=== PATIENT | male | born 1950 | race Caucasian/White ===

== ENCOUNTER 2020-09-02 15:06 | Emergency (ER) | payer MEDICARE, SELFPAY ==
[2020-09-02 15:07] VITALS: BP 158/84; PULSE 80; RESP 18; TEMP 36.9; O2SAT 95; BMI 29.7
[2020-09-02 15:10] VITALS: BMI 29.7
--- NOTE | 2020-09-02 15:25 | EKG12_ITS ---
Test Reason : NEUROS/SX Blood Pressure : / mmHG Vent. Rate : 076 BPM Atrial Rate : 076 BPM P-R Int : 138 ms QRS Dur : 098 ms QT Int : 378 ms P-R-T Axes : 016 -24 -21 degrees QTc Int : 425 ms Normal sinus rhythm Inferior infarct , age undetermined Abnormal ECG Confirmed by JIM SLAUGHTER, ZACH ([id number]), desk editor DIAZ CALVERT ([id number]) on 09/06/2020 7:46:33 AM Referred By: COLLETTE Confirmed By:ZACH FERNANDEZ MD
--- NOTE | 2020-09-02 15:25 | CT_ITS ---
STUDY: CT BRAIN WITHOUT CONTRAST REASON FOR EXAM: Male, 70 years old. Left-sided facial droop for 2 days RADIATION DOSAGE (If Supplied By Facility): CTDIvol = ( 44.99 ) mGy, DLP = ( 846.73 ) mGycm TECHNIQUE: Transaxial CT imaging of the brain was performed without administration of intravenous contrast material. Individualized dose optimization techniques were used for this CT. COMPARISON: No relevant priors. FINDINGS: Normal soft tissue structures. Normal calvarium. Normal size ventricles and extra-axial spaces for the patient''s age. Normal white matter tracts of the cerebral hemispheres. Normal basal ganglia and thalami. Normal brainstem. Normal cerebellum. There is no intracranial hemorrhage. There are no findings of an acute ischemic infarction. Normal visualized paranasal sinuses. CT/Brain/Head without Contrast IMPRESSION: No acute intracranial hemorrhage or mass effect. Electronically Signed: José Miguel Quezada MD ([place]) at 16:11 EDT , Service support ,
--- NOTE | 2020-09-02 15:28 | ED.VIS.GEN ---
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 He has diabetes high cholesterol he has been unable to see his physician to get his medications refilled so is been off his meds for a few months, he is eating and drinking well executing all of his daily activities with no difficulty, he has no history of stroke ME PE DVT kidney liver or any other health issues except as above Past Medical History - Allergies and Home Meds Allergies/Adverse Reactions: Allergies No Known Allergies Allergy (Verified 09/02/20 15:09) Primary Care Physician: Arcadio Maldonado MD [STAFF PHYSICIAN] - Daniel Lara MD [Primary Care Provider] - Past Medical History: - - Includes as above Review of Systems General: Denies: Chills, Fever, Sweats Eyes: Reports: Visual changes - bilaterally, Blurred Vision - bilaterally, - - Left facial droop. Denies: Diplopia ENT: Denies: Rhinorrhea, Sore throat Cardiovascular: Denies: Chest pain, Palpitations Respiratory: Denies: Dyspnea, Cough, Dyspnea on exertion Gastrointestinal: Denies: Abdominal pain, Nausea, Vomiting, Diarrhea, Melena, Hematochezia Genitourinary: Denies: Dysuria, Hematuria, Frequency Musculoskeletal: Denies: Back pain, Extremity Pain Skin: Denies: Rash, Wounds Neurological: Denies: Headache, Weakness, Numbness Physical Exam Vital Signs/Narrative: Vital Signs Temp Pulse Resp BP Pulse Ox 09/02/20 15:07 98.5 F 80 18 158/84 H 95 General: Well nourished, Well developed, No Acute Distress Head: Normocephalic, Atraumatic Eyes: Perrl, EOMI, - - Patient has an obvious left lid lag, he has left facial droop, he is unable to furrow his left forehead he can furl the right forehead without difficulty, his airway is intact his phonation is normal his neurologic status is otherwise complete unremarkable and intact his NIH would otherwise be 0 ENT: Moist mucous membranes, No rhinorrhea Neck: Supple, Nontender Cardiovascular: Regular rate, Regular rhythm, No murmurs Respiratory: No distress, CTA bilaterally, Chest nontender Abdomen: Soft, Nontender, Nondistended, Normal bowel sounds Back: Nontender, Normal Inspection Extremities: Nontender, No edema Skin: Normal color, No rash Neurological: Alert, Oriented x3, Cranial nerves II-XII grossly intact, Normal Strength, Normal Sensation Psychological: Normal affect, Normal Mood Diagnostic/Tx/Re-eval - Medical Decision Making Started these had no URI no fever no cough no coronavirus exposures no headache no change in functional status given all the above differential extensive ED evaluation labs and CT Patient's EKG shows a sinus rhythm rate of about 80 no acute injury see those reports, the patient screening labs are all generally unremarkable to those reports, the patient's head CT per radiology shows nothing acute no ischemic injury mass, Discussed all the above with the patient given that history he provided given the physical exam the ED evaluation explained this is likely related to Hoffman's palsy, we will start him on erythromycin thumb appointment for eye lubrication he will use it at bedtime, we have spoken with the pharmacy to have his medications refilled as he is unable to see his physicians for refills related coronavirus issues, he will follow-up with his physicians the next few days after Easter he is referred to ophthalmology as well and return for change in symptoms Note I did discuss steroids and famciclovir with the patient and he indicates he understands that steroids can affect his blood sugar he will keep a close eye not he wants to be started on steroids 60 mg 3 times a day tapering over the course of a week and he has an appointment see his physicians next week for further management of all the above Home stable 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
[2020-09-02 15:50] LABS: Absolute Lymphocyte Count 1.38 X10^3/uL (0.83-4.51); Absolute Neutrophil Count 2.7 X10^3/uL (2.0-7.7); Basophil# 0.03 X10^3/uL; Basophil% 0.6 % (0-1); Eosinophil# 0.51 X10^3/uL; Eosinophils% 9.9 % (0-5); Hematocrit 45.6 % (40-54); Lymphocyte # 1.38 X10^3/ul (4.0); Lymphocyte % 26.8 % (19-41); Mean Corp Hgb Conc 32.9 g/dL (32-36); Mean Corpuscular Hgb 30.9 pg (27.0-32.0); Mean Corpuscular Volume 93.8 fL (80-94); Mean Platelet Vol. 9.3 fl (6.2-12.0); Monocyte# 0.53 X10^3/uL; Monocyte% 10.3 % (0-10); NRBC Flagged by Analyzer 0 % (0-5); Neutrophil # 2.68 X10^3/uL (2.7-7.7); Platelet Count 185 K/mm3 (150-450); RBC Distribution Width CV 12.5 % (11.6-14.6); RBC Distribution Width SD 43.1 fl (35.1-43.9); Red Blood Count 4.86 M/mm3 (4.6-6.2); White Blood Count 5.2 K/mm3 (4.4-11.0)
[2020-09-02 16:10] LABS: Anion Gap 2 (5-15); BUN 16 mg/dL (7-18); BUN/Creat Ratio 13.4 RATIO (10-20); Calcium,Total 8.7 mg/dL (8.5-10.1); Chloride 106 mmol/L (98-107); Creatinine, Serum 1.19 mg/dL (0.70-1.30); EST Glomerular Filtration Rate 64 mL/min (>60); Est Glom Filt Rate - Afr Amer 77 mL/min (>60); Estimated Creatinine Clearance 62.49 ml/min; Glucose 139 mg/dL (74-106); Sodium Level 140 mmol/L (136-145)
[2020-09-02] MEDS: predniSONE 20 MG Tablet 60 MG PO (16:54)
[2020-09-02 16:55] VITALS: BP 158/88; PULSE 74; RESP 18; O2SAT 94
== END 2020-09-02 16:56 | disposition home or self-care (01) ==
LOC: ED 15:49
PROVIDERS: Emergency Provider Emergency Medicine; PCP Internal Medicine
DX: G51.0 Bell's palsy (principal)
CPT/HCPCS: 70450; 80048; 84484; 85025; 93005; 99283

== ENCOUNTER 2022-06-08 00:49 | Inpatient (IN) | payer MEDICARE, SELFPAY ==
[2022-06-08] VITALS (13 sets, daily range): BP systolic 112–164; BP diastolic 72–97; PULSE 57–71; RESP 16–20; TEMP 36.4–36.8; O2SAT 93–98; BMI 27.3; BMI 27.8
--- NOTE | 2022-06-08 00:54 | EKG12_ITS ---
Test Reason : REPEAT Blood Pressure : / mmHG Vent. Rate : 067 BPM Atrial Rate : 067 BPM P-R Int : 176 ms QRS Dur : 108 ms QT Int : 412 ms P-R-T Axes : 040 -44 -27 degrees QTc Int : 435 ms Normal sinus rhythm Left axis deviation Inferior infarct , age undetermined Abnormal ECG Confirmed by ULISSES SLAUGHTER, ALYSSA ([id number]), editor farm journal JOSE TRAVIS ([id number]) on 06/10/2022 11:07:55 AM Referred By: NITO Confirmed By:RAMÓN GTZ MD
--- NOTE | 2022-06-08 01:00 | RAD_ITS ---
INDICATION: chest pain EXAMINATION/TECHNIQUE: X-RAY - XR Chest 1 View COMPARISON: No previous relevant examinations available for comparison.. FINDINGS: LIFE-SUPPORT AND LINES: 1. None HEART AND VESSELS: The cardiac silhouette, pulmonary vasculature have normal appearance. No evidence of congestive failure. LUNGS AND PLEURAL SPACES: Lungs are clear. No focal infiltrate, consolidation or effusions. No evidence of pneumothorax. No pulmonary mass is noted. MEDIASTINUM AND HILAR REGIONS: No masses adenopathy noted. No areas of calcification. Visualized upper airway is normal in position. BONY ELEMENTS: No acute bony changes noted. RAD/Chest 1 View (Portable) IMPRESSION: 1. No evidence of acute cardiopulmonary process Electronically Signed: Kavon Pantoja MD at 1:21 EST ,
--- NOTE | 2022-06-08 01:01 | ED.VIS.CHEST ---
HPI History of Present Illness Chief Complaint: Chest Pain Detail of Chief Complaint: No chest pain Informant: patient Onset/Context/Timing Onset: Days Activity at onset: activity on onset (On and Friday), rest (Occurred at rest at midnight) and exertion Timing: Intermittent and Lasts (Up to an hour) Quality: Positive for - (Pain) Location: Substernal Current Severity: Mild Maximum Severity: Severe Worsened By: Exertion Relieved By: Rest (After 1 hour resting) Associated Symptoms: Positive for Nausea, Diaphoresis and Dyspnea; Negative for Vomiting, Cough, Fever, Lightheadedness, Acid Reflux or Palpitations Narrative Narrative: Patient is a 72-year-old male with history of hypercholesterolemia and diabetes who presents with chest discomfort first noted on . This occurred when he was exerting himself pushing heavy objects. He states it would last up to an hour after he stopped his activity. This was associated with shortness of breath diaphoresis and nausea. This evening at midnight while sitting in his chair he developed chest discomfort radiating to his left shoulder and arm with diaphoresis and nausea and mild shortness of breath. He is still complaining of chest discomfort. He denies history of coronary disease. He denies history of smoking. Prior Similar Symptoms: No Recent Illness/Hospitalization: No CVD Risk Factors: Positive for Diabetes and Hypercholesterolemia; Negative for Hypertension, Family History 1' </=55 or Smoking PE Risk Factors: Negative for Recent Travel/Surgery, Recent Immobilization, Prior DVT or PE, Cancer or OCP + Smoking + >/=35 TAD Risk Factors: Negative for Marfan's Syndrome, Hypertension or Family History [facility] Medical History Anxiety Diabetes Home Medications metformin 500 mg tablet,extended release 24 hr 500 mg PO DAILY 06/08/22 [History Last Taken Unknown] mometasone-formoterol HFA 200 mcg-5 mcg/actuation aerosol inhaler (Dulera) 2 puff inhalation BID 06/08/22 [History Last Taken Unknown] venlafaxine 75 mg tablet 75 mg PO DAILY 06/08/22 [History Last Taken Unknown] Allergy/AdvReac Type Severity Reaction Status Date / Time cat dander Allergy Other Verified 06/08/22 00:54 Social History (Updated 06/08/22 @ 01:[address] Siddhartha Arreguin MD) household members: none Smoking Status: Never smoker substance use type: does not use ROS ROS ED Constitutional Constitutional ED: Denies chills, fever(s) or subjective Eyes Eyes: Reports none; Denies blurry vision or change in vision ENT ENT ED: Denies ear pain, rhinorrhea or sore throat Cardiovascular Cardiovascular: Reports as per HPI; Denies orthopnea or paroxysmal nocturnal dyspnea Respiratory/Chest Respiratory/Chest: Reports dyspnea and dyspnea on exertion; Denies cough, orthopnea or paroxysmal nocturnal dyspnea Gastrointestinal Gastrointestinal: Reports nausea; Denies abdominal pain, constipation, diarrhea, melena or vomiting Genitourinary Genitourinary ED: Denies dysuria or hematuria Musculoskeletal Musculoskeletal: Denies arthralgias, back pain, myalgias or neck pain Integumentary Denies abscess, Abrasions or rash Neurologic Neurologic: Denies headache(s) or paresthesias Psychiatric Psychiatric: Denies anxiety or depression Hematologic/Lymphatic Hematologic/Lymphatic: Denies easy bleeding or easy bruising EXAM Physical Exam Const Vital Signs: 06/08/22 00:50 06/08/22 00:59 06/08/22 01:11 Temperature 98.2 F Temperature Source Oral Pulse Rate 69 65 Respiratory Rate 20 H Blood Pressure 164/97 H 161/91 H Blood Pressure Mean 119 Pulse Ox 95 Oxygen Delivery Method Room Air Room Air Oxygen Flow Rate (L/min) 06/08/22 01:16 06/08/22 01:22 06/08/22 01:52 Temperature 97.9 F Temperature Source Temporal Pulse Rate 68 71 64 Respiratory Rate 16 Blood Pressure 156/97 H 136/88 H 136/86 H Blood Pressure Mean 102 Pulse Ox 94 Oxygen Delivery Method Nasal Cannula Oxygen Flow Rate (L/min) 2 Positive well nourished and well developed General Appearance ED: well developed and NAD; Negative for pallor HEENT Reports TM's clear and moist mucous membranes HEENT Narrative: Nares patent. Posterior pharynx out erythema or exudate or abnormality. normocephalic Tympanic Membrane ED: Yes TM's clear Eyes PERRL and EOMs intact bilaterally General Eye ED: Negative for pale conjunctiva or scleral icterus Neck no lymphadenopathy, supple and no JVD Chest Wall inspection of chest normal and palpation of chest normal Resp normal respiratory effort and clear to auscultation bilaterally Cardio regular rate, regular rhythm, S1 normal heart sound, S2 normal heart sound and no murmurs Peripheral Pulses: pulses 2+ throughout GI normal to inspection, nondistended, normoactive bowel sounds, soft to palpation, non-tender, non-distended and no masses; Negative for hepatosplenomegaly GI Narrative: There is no palpable pulsatile mass. Back/Spine no CVA tenderness and no thoracic nor lumbar tenderness Extremity normal to inspection General Extremety ED: Negative for edema, pulses abnormal or tenderness General Extremity: Negative for edema or pulses abnormal Neuro oriented x3, CN's II-XII intact bilaterally and no sensory deficits noted Sensorium / Orientation: awake Psych mental status grossly normal Skin no rashes or lesions noted and no wounds General Skin Exam: Negative for jaundice or pallor MDM MDM MDM Narrative Medical decision making narrative: Patient presents with classic exertional angina. His EKG shows abnormality in the anterior leads with mild depression in V2 V3 and V4. This is new from September 02, 2020. The inferior changes are unchanged. Patient was treated with aspirin and nitro. Calls placed to construction mgr because of concerned this may represent a posterior myocardial infarction. This at the minimum represents ischemia. Will discuss anticoagulation and specifically Plavix heparin versus Lovenox etc. Freight Car Loader is sending a HIPAA compliant fax/text to the construction mgr on-call Dr. Eldridge. Dr. Ignacio Real agrees there are EKG changes. He requested repeat EKG. There is dynamic changes to give him a call otherwise heparinize admit. First troponin is under 55. This would indicate patient had an ischemic event in the last 24 to 48 hours. Lab Data Attestation: I reviewed the patient's lab results. Lab results narrative: CBC and differential unremarkable. Labs: Laboratory Results - last 24 hr 06/08/22 06/08/22 06/08/22 01:00 01:00 01:00 WBC 7.7 RBC 5.09 Hgb 15.7 Hct 47.4 MCV 93.1 MCH 30.8 MCHC 33.1 RDW Std Deviation 43.3 RDW Coeff of Willis 12.6 Plt Count 219 MPV 9.6 Immature Gran % (Auto) 0.300 Neut % (Auto) 45.0 L Lymph % (Auto) 33.6 [place] % (Auto) 10.0 Eos % (Auto) 10.3 H Baso % (Auto) 0.8 Absolute Neuts (auto) 3.5 Absolute Lymphs (auto) 2.58 Nucleated RBC % 0 PT 12.7 INR 1.0 APTT 35.0 Sodium 140 Potassium 3.9 Chloride 105 Carbon Dioxide 31.0 Anion Gap 4 L BUN 17 Creatinine 1.05 Estim Creat Clear Calc 68.77 Est GFR (MDRD) Af Amer 89 Est GFR (MDRD) Non-Af 74 BUN/Creatinine Ratio 16.2 Glucose 152 H Calcium 9.3 Troponin I High Sens 155 H* Radiography Chest X-Ray - ED: Read by ED Physician (View portable chest x-ray reveals no acute abnormality. Cardiac silhouette size normal. Perihilar region normal. Lung parenchyma is normal. [place] structures are unremarkable. This was independently reviewed and interpreted by me at 0116) Diagnostic Testing: Clinical Impression(s) from Imaging Studies Chest X-Ray 06/08/22 01:00 IMPRESSION: 1. No evidence of acute cardiopulmonary process Electronically Signed: Kavon Pantoja MD at 1:21 EST , EKG Initial EKG: Attestation: I personally reviewed and interpreted this EKG as follows: Interpretation: Sinus Rhythm (EKG reveals a sinus rhythm with a rate of 70. [place] to left. There are inferior changes which are unchanged from September 02, 2020. Patient does have mild ST depression in V2 V3 and V4 and raise concern for posterior myocardial infarction. Dr. Eldridge was paged and images were sent to him.) Follow-up EKG: Attestation: I personally reviewed and interpreted this EKG as follows: Interpretation: Sinus Rhythm (Rate is 67. [place] to left. There is slight increased depression in V2 3 and 4 compared to initial EKG was performed at 051. This was faxed to Dr. Eldridge) Critical Care Time Critical Care Time: Yes Critical care time (excluding procedures): 30-74 minutes (32), Including time spent: (History, physical, documentation, interpretation of laboratory results), Discussing w/Patient &/or Family/B2B Sales Executive, Discussing w/Consultants (Discussion with construction mgr and hospitalist) and Arranging Admission or Transfer Discharge Plan Triage Chief Complaint: Chest Pain ED Provider: Siddhartha Arreguin Dx/Rx/DC Orders Clinical Impression: Non-ST elevated myocardial infarction, History of primary hypertension, History of hypercholesterolemia Prescriptions: No Action venlafaxine [Effexor] 75 mg Tablet 75 mg PO DAILY metformin 500 mg Tablet Extended Release 24 Hr 500 mg PO DAILY Dulera 200-5 mcg/actuation Hfa Aerosol Inhaler 2 puff INHALATION BID Primary Care Provider: Daniel Lara Referrals: Daniel Lara MD [Primary Care Provider] - Disposition Disposition: Acute Care Hospital [facility]
[2022-06-08] MEDS: Aspirin 81 MG TAB.CHEW 324 MG PO (01:06)
[2022-06-08 01:08] LABS: Absolute Lymphocyte Count 2.58 X10^3/uL (0.83-4.51); Absolute Neutrophil Count 3.5 X10^3/uL (2.0-7.7); Basophil# 0.06 X10^3/uL; Basophil% 0.8 % (0-1); Eosinophil# 0.79 X10^3/uL; Eosinophils% 10.3 % (0-5); Hematocrit 47.4 % (40-54); Hemoglobin 15.7 g/dL (13.0-16.5); Lymphocyte # 2.58 X10^3/ul (0.83-4.51); Lymphocyte % 33.6 % (19-41); Mean Corp Hgb Conc 33.1 g/dL (32-36); Mean Corpuscular Hgb 30.8 pg (27.0-32.0); Mean Corpuscular Volume 93.1 fL (80-94); Mean Platelet Vol. 9.6 fl (6.2-12.0); Monocyte# 0.77 X10^3/uL; NRBC Flagged by Analyzer 0 % (0-5); Neutrophil # 3.47 X10^3/uL (2.7-7.7); Platelet Count 219 K/mm3 (150-450); RBC Distribution Width CV 12.6 % (11.6-14.6); RBC Distribution Width SD 43.3 fl (35.1-43.9); Red Blood Count 5.09 M/mm3 (4.6-6.2); White Blood Count 7.7 K/mm3 (4.4-11.0)
[2022-06-08] MEDS: Nitroglycerin SL (ED/IMG/CATH) 0.4 MG TABLET SL ×3 (01:11→01:22)
--- NOTE | 2022-06-08 01:25 | EKG12_ITS ---
Test Reason : CP Blood Pressure : / mmHG Vent. Rate : 070 BPM Atrial Rate : 070 BPM P-R Int : 180 ms QRS Dur : 112 ms QT Int : 398 ms P-R-T Axes : 055 -34 -28 degrees QTc Int : 429 ms Normal sinus rhythm Left axis deviation Inferior infarct , age undetermined Abnormal ECG Confirmed by ULISSES SLAUGHTER, ALYSSA ([id number]), slot editor JOSE TRAVIS ([id number]) on 06/10/2022 11:08:16 AM Referred By: NITO Confirmed By:RAMÓN GTZ MD
[2022-06-08 01:33] LABS: Anion Gap 4 (5-15); BUN 17 mg/dL (7-18); BUN/Creat Ratio 16.2 RATIO (10-20); Calcium,Total 9.3 mg/dL (8.5-10.1); Chloride 105 mmol/L (98-107); Creatinine, Serum 1.05 mg/dL (0.70-1.30); EST Glomerular Filtration Rate 74 mL/min (>60); Est Glom Filt Rate - Afr Amer 89 mL/min (>60); Estimated Creatinine Clearance 68.77 ml/min; Glucose 152 mg/dL (74-106); Potassium 3.9 mmol/L (3.5-5.1); Sodium Level 140 mmol/L (136-145); Troponin-I HS (w/2H Reflex) 155 pg/mL (3.0-78.0)
--- NOTE | 2022-06-08 01:36 | PCM.HP.STD ---
HPI - General General Date of Admission: 06/08/22 Date of Service: 06/08/22 Chief Complaint: Chest pain HPI Narrative NASIMA KEYS, is a 72 M with a significant history of diabetes mellitus; borderline hyperlipidemia; asthma who presents emergency department with chest pain. Patient realized that he was having chest pain when he woke up while lying in a recliner. He reported chest pain as dull ache. He woke up and walk to the bathroom and his chest pain worsening. Associated with his shortness of breath. His chest pain radiated to his left. Patient was diaphoretic. Chest pain started few hours before presentation . At the emergency department patient received nitroglycerin sublingual to helped with his chest pain. Of note patient report that for some time now he has been having chest pain with exertion. 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 He report that the chest pain increases with the cold air. [facility] Medical History (Updated 06/08/22 @ 03:21 by Catherine Davis) Anxiety Asthma Diabetes Sleep apnea Home Medications metformin 500 mg tablet,extended release 24 hr 500 mg PO DAILY 06/08/22 [History Last Taken Unknown] mometasone-formoterol HFA 200 mcg-5 mcg/actuation aerosol inhaler (Dulera) 2 puff inhalation BID 06/08/22 [History Last Taken Unknown] venlafaxine 75 mg tablet 75 mg PO DAILY 06/08/22 [History Last Taken Unknown] Allergy/AdvReac Type Severity Reaction Status Date / Time cat dander Allergy Other Verified 06/08/22 00:54 Family History (Updated 06/08/22 @ 19:[address] Simba Ceja MD) Other Heart disease Surgical History (Updated 06/08/22 @ 19:[address] Simba Ceja MD) History of herniorrhaphy History of tonsillectomy Social History (Updated 06/08/22 @ 03:21 by Catherine Davis) household members: none housing: apartment current occupational status: employed Smoking Status: Never smoker substance use type: does not use ROS ROS Narrative Pertinent positives and pertinent negatives as noted in HPI. All other systems were reviewed and are negative Vital Signs Vital Signs Vital Signs: 06/08/22 00:50 06/08/22 00:59 06/08/22 01:11 Temperature 98.2 F Temperature Source Oral Pulse Rate 69 65 Respiratory Rate 20 H Blood Pressure 164/97 H 161/91 H Blood Pressure Mean 119 Pulse Ox 95 Oxygen Delivery Method Room Air Room Air 06/08/22 01:16 06/08/22 01:22 Temperature Temperature Source Pulse Rate 68 71 Respiratory Rate Blood Pressure 156/97 H 136/88 H Blood Pressure Mean Pulse Ox Oxygen Delivery Method Weight Weight: 91.4 kg Body Mass Index (BMI) 27.3 Physical Exam Narrative Physical exam: General: Well-nourished, well-developed. Head: Normocephalic, atraumatic, no tenderness Eyes: Vision is grossly intact. EOMI ENT, no trauma, moist mucous membranes, no rhinorrhea Neck: Nontender, No thyromegaly. CVS: Regular rate and rhythm. S1-S2 present. No murmur, gallop or rub. Respiratory : clear to auscultation bilaterally, chest wall nontender, no wheezing Abdomen: Soft, nontender, nondistended, normal bowel sounds, no masses : Deferred Back: Nontender, no CVA tenderness Extremities: Nontender full range of motion, no trauma Skin: Normal color, no trauma, abrasions Neuro: Alert, oriented, cranial nerves II through XII grossly intact. Psychiatry: Normal mood. Normal affect. Not depressed. Not anxious. Results Lab / Micro Data Result Diagrams: 06/08/22 07:00 06/08/22 07:00 Labs: Laboratory Results - last 24 hr 06/08/22 01:00: WBC 7.7, RBC 5.09, Hgb 15.7, Hct 47.4, MCV 93.1, MCH 30.8, MCHC 33.1, RDW Std Deviation 43.3, RDW Coeff of Willis 12.6, Plt Count 219, MPV 9.6, Immature Gran % (Auto) 0.300, Neut % (Auto) 45.0 L, Lymph % (Auto) 33.6, [place] % (Auto) 10.0, Eos % (Auto) 10.3 H, Baso % (Auto) 0.8, Absolute Neuts (auto) 3.5, Absolute Lymphs (auto) 2.58, Nucleated RBC % 0 06/08/22 01:00: Sodium 140, Potassium 3.9, Chloride 105, Carbon Dioxide 31.0, Anion Gap 4 L, BUN 17, Creatinine 1.05, Estim Creat Clear Calc 68.77, Est GFR (MDRD) Af Amer 89, Est GFR (MDRD) Non-Af 74, BUN/Creatinine Ratio 16.2, Glucose 152 H, Calcium 9.3, Troponin I High Sens 155 H* Radiology Impression Chest X-Ray 06/08/22 01:00 IMPRESSION: 1. No evidence of acute cardiopulmonary process Electronically Signed: Kavon Pantoja MD at 1:21 EST , Assessment & Plan Assessment/Plan (1) Non-ST elevated myocardial infarction: (2) History of primary hypertension: (3) History of hypercholesterolemia: PLAN: Plan NSTEMI Place on a monitored bed at u Actual CXR image was independently visualized and interpreted. No acute cardiopulmonary process was noted. I agree with pv design and installation technician interpretation. Actual EKG tracing was independently visualized. EKG tracing showed multiple ST depression not present in previous ASA 81 mg p.o. daily ordered We will check lipid panel. Reports on home low-dose of statin. Placed on high intensity Lipitor Initial high sensitive troponin was 155. Serial cardiac enzymes ordered Stat EKG as needed for chest pain Started on a heparin drip Cardiology consult. Diabetes mellitus Patient with mild hyperglycemia on presentation Monitor Accu-Cheks Correction scale insulin ordered. 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 Asthma Stable Home inhalers continued. Depression/anxiety Stable Effexor continued DVT prophylaxis: Not indicated as patient is present on heparin drip for NSTEMI. Charges/Coding Visit Charges Inpatient E&M: 56298 Init Hosp L3
[2022-06-08 01:47] LABS: Prothrombin Time (Protime)PT. 12.7 SECONDS (11.7-14.9)
[2022-06-08] MEDS: HEPARIN/D5w 25,000 UNITS 25,000 UNITS/250 ML IV.SOLN. 12 UNITS CONT INF (02:21)
[2022-06-08] MEDS: Heparin Injection (Vial) 5,000 UNIT/ML VIAL 6000 UNIT IV (02:24)
[2022-06-08 03:05] LABS: Reflex Troponin-HS? (from REC) Y
--- NOTE | 2022-06-08 03:12 | EKG12_ITS ---
Test Reason : AM EKG Blood Pressure : / mmHG Vent. Rate : 053 BPM Atrial Rate : 053 BPM P-R Int : 184 ms QRS Dur : 108 ms QT Int : 486 ms P-R-T Axes : 042 -11 230 degrees QTc Int : 456 ms Sinus bradycardia Possible Inferior infarct , age undetermined T wave abnormality, consider lateral ischemia Abnormal ECG When compared with ECG of 08-JUN-2022 03:21, MANUAL COMPARISON REQUIRED, DATA IS UNCONFIRMED Confirmed by JIM SLAUGHTER, ZACH ([id number]), news video editor JOSE TRAVIS ([id number]) on 06/11/2022 8:40:44 AM Referred By: Confirmed By:ZACH FERNANDEZ MD
[2022-06-08] MEDS: HEPARIN/D5w 25,000 UNITS 25,000 UNITS/250 ML IV.SOLN. 10 UNITS CONT INF (03:39)
[2022-06-08 03:57] LABS: Troponin-I HS 7552 pg/mL (3.0-78.0)
[2022-06-08 05:56] LABS: Bedside Glucose 185 mg/dL (74-106)
[2022-06-08] MEDS: Budesonide Respules 0.5 MG/2 ML AMPUL.NEB. INHALATION ×2 (06:49→20:02)
[2022-06-08] MEDS: Albuterol 2.5 MG/3 ML VIAL.NEB. INHALATION ×3 (06:49→20:02)
[2022-06-08 07:40] LABS: Absolute Lymphocyte Count 1.85 X10^3/uL (0.83-4.51); Absolute Neutrophil Count 3.2 X10^3/uL (2.0-7.7); Basophil# 0.03 X10^3/uL; Basophil% 0.5 % (0-1); Eosinophil# 0.38 X10^3/uL; Eosinophils% 6.4 % (0-5); Hematocrit 45.5 % (40-54); Lymphocyte # 1.85 X10^3/ul (0.83-4.51); Lymphocyte % 31.2 % (19-41); Mean Corpuscular Hgb 30.4 pg (27.0-32.0); Mean Corpuscular Volume 92.3 fL (80-94); Mean Platelet Vol. 9.8 fl (6.2-12.0); Monocyte# 0.49 X10^3/uL; Monocyte% 8.3 % (0-10); NRBC Flagged by Analyzer 0 % (0-5); Neutrophil # 3.15 X10^3/uL (2.7-7.7); Neutrophil % 53.1 % (47-70); Platelet Count 180 K/mm3 (150-450); RBC Distribution Width CV 12.6 % (11.6-14.6); RBC Distribution Width SD 42.8 fl (35.1-43.9); Red Blood Count 4.93 M/mm3 (4.6-6.2); White Blood Count 5.9 K/mm3 (4.4-11.0)
[2022-06-08 08:06] LABS: Anion Gap 3 (5-15); BUN 16 mg/dL (7-18); BUN/Creat Ratio 16.7 RATIO (10-20); Calcium,Total 9.1 mg/dL (8.5-10.1); Chloride 109 mmol/L (98-107); Cholesterol 162 mg/dL (200); Creatinine, Serum 0.96 mg/dL (0.70-1.30); EST Glomerular Filtration Rate 82 mL/min (>60); Est Glom Filt Rate - Afr Amer 99 mL/min (>60); Estimated Creatinine Clearance 75.22 ml/min; Glucose 154 mg/dL (74-106); High Density Lipoprotein 62 mg/dL; Potassium 3.9 mmol/L (3.5-5.1); Sodium Level 140 mmol/L (136-145); Triglycerides 65 mg/dL; Very Low Density Lipoprotein 13 mg/dL (5-40)
[2022-06-08] MEDS: Venlafaxine XR 75 MG Capsule PO (08:12)
[2022-06-08] MEDS: Aspirin E.C. 81 MG Tablet PO (08:12)
[2022-06-08 08:44] LABS: Troponin-I HS 23661 pg/mL (3.0-78.0)
--- NOTE | 2022-06-08 09:40 | CASEMGMT ---
TERESITA DUARTE Assessment: Face to Face with pt for initial transition planning/care coordination assessment. TERESITA DUARTE introduced self and role at [facility], pt voices understanding and consents to assessment. Pt is A/O x4 and answers all questions appropriately at this time. Pt lying in bed in no distress. Care providers, pharmacy, and demographics verified/updated. Admitting Dx: unstable angina PCP:Marco Specialists:Pt denies. States he needs a physician to replace his sleep study physician who retired. Provided with a local healthcare directory. [facility]erred Pharmacy: [facility] Insurance: [facility] [employer] Prescription Benefit: yes LNOK: [address] dtr Living Arrangements: Pt lives alone in a bilevel home with one step to enter. Pt reports he is I in ADL's and denies concerns at home. Transportation: Pt drives self and denies concerns with transportation. DME/HHC/SNF: Pt reports he has an old concentrator from [facility] but does not know if it works. Pt has a CPAP that he doesn't use and has a pox. Pt denies having HHC or SNF stays. Pt states no concerns with going home at time of dc. Pt states no further concerns/needs. CM to follow. Advised pt to ask CM if any further question/concerns/needs arise, voices understanding. Pt Goal: Home Plan: Home
--- NOTE | 2022-06-08 10:22 | ECHOD_ITS ---
Reason For Study: Chest pain Procedure This was a 2D Doppler, Color Flow transthoracic echocardiogram. Exam performed portable in patient room. Left Ventricle Normal LV size. The estimated ejection fraction is 45-50 %. No evidence for diastolic dysfunction. Hypokinesis of the posterior wall and lateral daigle. Right Ventricle Normal RV size. Normal systolic function. Atria Normal left atrium. Normal right atrium. No doppler evidence for ASD. Mitral Valve There is moderate mitral annular calcification. There is no mitral valve stenosis. Trivial mitral valve insufficiency. Tricuspid Valve There is no tricuspid stenosis. Trivial tricuspid valve insufficiency. Unable to estimate RV systolic pressure due to insufficient tricuspid regurgitant envelope. Aortic Valve Trisinus/trileaflet aortic valve. There is no aortic stenosis. No aortic valve insufficiency. Pulmonic Valve There is no pulmonic valvular stenosis. No pulmonic valve insufficiency. Great Vessels Normal aortic root. Pericardium/Pleural No pericardial effusion. MMode/2D Measurements & Calculations LVIDd: 6.1 cm IVSd: 1.4 cm Ao root diam: 3.1 cm LVIDs: 5.2 cm LVPWd: 0.68 cm RVDd: 3.8 cm FS: 14.0 % LAV(MOD-bp): 59.9 ml LVAd ap4: 34.7 cm2 LVAd ap2: 33.9 cm2 LAV(MOD-bp) Indexed: 27.8 ml/m2 LVLd ap4: 9.0 cm LVLd ap2: 9.8 cm LAV(MOD-sp2): 57.1 ml EDV(MOD-sp4): 111.0 ml EDV(MOD-sp2): 100.7 ml LAV(MOD-sp4): 58.4 ml EDV(sp4-el): 113.8 ml EDV(sp2-el): 99.5 ml LVAs ap4: 24.2 cm2 LVAs ap2: 22.1 cm2 LVLs ap4: 7.9 cm LVLs ap2: 8.7 cm ESV(MOD-sp4): 64.4 ml ESV(MOD-sp2): 49.9 ml ESV(sp4-el): 62.9 ml ESV(sp2-el): 47.7 ml EF(MOD-sp4): 41.9 % EF(MOD-sp2): 50.5 % EF(sp4-el): 44.7 % SV(MOD-sp4): 46.5 ml SV(MOD-sp2): 50.8 ml SV(sp4-el): 50.9 ml LA dimension(2D): 5.2 cm LA A4 area: 20.0 cm2 RA A4 area: 18.7 cm2 Doppler Measurements & Calculations MV E max derik: 45.1 cm/sec Lat Peak E' Derik: 7.5 cm/sec Med Peak E' Derik: 4.9 cm/sec MV A max derik: 93.8 cm/sec E/E' lat: 6.0 E/E' med: 9.1 MV E/A: 0.48 Ao V2 max: 116.3 cm/sec LV V1 max: 96.1 cm/sec PA V2 max: 80.6 cm/sec Ao max P.4 mmHg LV V1 max P.7 mmHg TR max derik: 258.1 cm/sec TR max P.6 mmHg ECHO/Echo Complete Interpretation Summary No evidence for diastolic dysfunction. Hypokinesis of the posterior wall and lateral daigle Trivial mitral valve insufficiency. The estimated ejection fraction is 45-50 %. Ordering Physician: Yael Eldridge Referring Physician: Daniel Lara M.D. Performed By: Elizabeth Pop RDCS
--- NOTE | 2022-06-08 12:18 | CON.PCM.CA_ITS ---
Assessment & Plan Assessment/Plan (1) Non-ST elevated myocardial infarction: PLAN: Agree with aspirin, statin, heparin. Would recommend adding Coreg 3.125 mg p.o. twice daily and also Plavix. If patient continues to remain asymptomatic and is electrically and hemodynamically stable then he will undergo coronary angiography on Friday. HPI Consult Data Date of Consult: 06/08/22 HPI Narrative HPI Narrative: NASIMA KEYS, is a 72 M who presents with chest pain. Chest pain apparently started on and worse with exertion. Last night he had severe chest pain at rest and came to the emergency room. In the emergency room patient had some ST depressions in the anterior leads. Patient was started on IV heparin and his chest pain also improved with nitroglycerin. Patient had an EKG around 3 AM today that revealed resolution of the ST depressions. His chest pain currently has resolved. His troponin has increased to around 23,000. Echocardiogram was reviewed. Review of systems: All systems reviewed. All else is negative except that in HPI [facility] Medical History (Updated 06/08/22 @ 03:21 by Catherine Davis) Anxiety Asthma Diabetes Sleep apnea Home Medications metformin 500 mg tablet,extended release 24 hr 500 mg PO DAILY 06/08/22 [History Last Taken Unknown] mometasone-formoterol HFA 200 mcg-5 mcg/actuation aerosol inhaler (Dulera) 2 puff inhalation BID 06/08/22 [History Last Taken Unknown] venlafaxine 75 mg tablet 75 mg PO DAILY 06/08/22 [History Last Taken Unknown] Allergy/AdvReac Type Severity Reaction Status Date / Time cat dander Allergy Other Verified 06/08/22 00:54 Social History (Updated 06/08/22 @ 03:21 by Catherine Davis) household members: none housing: apartment current occupational status: employed Smoking Status: Never smoker substance use type: does not use Physical Exam Const alert and oriented x3 HEENT normocephalic Eyes no scleral icterus Resp normal respiratory effort Cardio regular rate Extremity no pedal edema Skin no rashes or lesions noted Psych mental status grossly normal Risk Stratification Risk Stratification Applicable: No Charges/Coding Visit Charges Inpatient E&M: 88555 Init Hosp L2 Objective Data Vital Signs: Vital Signs Temp Pulse Resp BP Pulse Ox O2 Del Method O2 Flow Rate 97.6 F L 64 16 127/77 H 96 Nasal Cannula 2 01/07/23 09:40 06/08/22 09:40 06/08/22 09:40 06/08/22 09:40 06/08/22 09:40 06/08/22 09:40 06/08/22 09:40 Oxygen Flow Rate (L/min) 2 Oxygen Delivery Method Nasal Cannula Weight: 205 lb 7.533 oz Body Mass Index (BMI) 27.8 Intake & Output: Intake and Output for Last 24 Hours 06/06/22 06/07/22 06/08/22 23:59 23:59 23:59 Intake Total 74.93 / 74.93 Balance 74.93 / 74.93 Lab / Micro Data Result Diagrams: 06/08/22 07:00 06/08/22 07:00 Labs: Laboratory Results - last 24 hr 06/08/22 01:00: WBC 7.7, RBC 5.09, Hgb 15.7, Hct 47.4, MCV 93.1, MCH 30.8, MCHC 33.1, RDW Std Deviation 43.3, RDW Coeff of Willis 12.6, Plt Count 219, MPV 9.6, Immature Gran % (Auto) 0.300, Neut % (Auto) 45.0 L, Lymph % (Auto) 33.6, [place] % (Auto) 10.0, Eos % (Auto) 10.3 H, Baso % (Auto) 0.8, Absolute Neuts (auto) 3.5, Absolute Lymphs (auto) 2.58, Nucleated RBC % 0 06/08/22 01:00: Sodium 140, Potassium 3.9, Chloride 105, Carbon Dioxide 31.0, Anion Gap 4 L, BUN 17, Creatinine 1.05, Estim Creat Clear Calc 68.77, Est GFR (MDRD) Af Amer 89, Est GFR (MDRD) Non-Af 74, BUN/Creatinine Ratio 16.2, Glucose 152 H, Calcium 9.3, Troponin I High Sens 155 H* 06/08/22 01:00: PT 12.7, INR 1.0, APTT 35.0 06/08/22 03:28: Troponin I High Sens 7552 H* 06/08/22 05:34: POC Glucose 185 H 06/08/22 07:00: WBC 5.9, RBC 4.93, Hgb 15.0, Hct 45.5, MCV 92.3, MCH 30.4, MCHC 33.0, RDW Std Deviation 42.8, RDW Coeff of Willis 12.6, Plt Count 180, MPV 9.8, Immature Gran % (Auto) 0.500, Neut % (Auto) 53.1, Lymph % (Auto) 31.2, [place] % (Auto) 8.3, Eos % (Auto) 6.4 H, Baso % (Auto) 0.5, Absolute Neuts (auto) 3.2, Absolute Lymphs (auto) 1.85, Nucleated RBC % 0 06/08/22 07:00: Sodium 140, Potassium 3.9, Chloride 109 H, Carbon Dioxide 28.0, Anion Gap 3 L, BUN 16, Creatinine 0.96, Estim Creat Clear Calc 75.22, Est GFR (MDRD) Af Amer 99, Est GFR (MDRD) Non-Af 82, BUN/Creatinine Ratio 16.7, Glucose 154 H, Calcium 9.1, Triglycerides 65, Cholesterol 162, LDL Cholesterol 87, VLDL Cholesterol 13, HDL Cholesterol 62 06/08/22 07:00: Troponin I [place] Sens 48068 H* 06/08/22 08:25: APTT 114.0 H* Cardiology Labs/Tests 06/08/22 01:00: WBC 7.7, RBC 5.09, Hgb 15.7, Hct 47.4, MCV 93.1, MCH 30.8, MCHC 33.1, Plt Count 219, MPV 9.6, Immature Gran % (Auto) 0.300, Neut % (Auto) 45.0 L , Lymph % (Auto) 33.6, [place] % (Auto) 10.0, Eos % (Auto) 10.3 H, Baso % (Auto) 0.8, Absolute Neuts (auto) 3.5, Nucleated RBC % 0 06/08/22 01:00: Sodium 140, Potassium 3.9, Chloride 105, Carbon Dioxide 31.0, Anion Gap 4 L, BUN 17, Creatinine 1.05, Est GFR (MDRD) Af Amer 89, Est GFR (MDRD) Non-Af 74, BUN/Creatinine Ratio 16.2, Glucose 152 H, Calcium 9.3 06/08/22 01:00: PT 12.7, INR 1.0, APTT 35.0 06/08/22 07:00: WBC 5.9, RBC 4.93, Hgb 15.0, Hct 45.5, MCV 92.3, MCH 30.4, MCHC 33.0, Plt Count 180, MPV 9.8, Immature Gran % (Auto) 0.500, Neut % (Auto) 53.1, Lymph % (Auto) 31.2, [place] % (Auto) 8.3, Eos % (Auto) 6.4 H, Baso % (Auto) 0.5, A bsolute Neuts (auto) 3.2, Nucleated RBC % 0 06/08/22 07:00: Sodium 140, Potassium 3.9, Chloride 109 H, Carbon Dioxide 28.0, Anion Gap 3 L, BUN 16, Creatinine 0.96, Est GFR (MDRD) Af Amer 99, Est GFR (MDRD) Non-Af 82, BUN/Creatinine Ratio 16.7, Glucose 154 H, Calcium 9.1, Triglycerides 65, Cholesterol 162, LDL Cholesterol 87, VLDL Cholesterol 13, HDL Cholesterol 62 06/08/22 08:25: APTT 114.0 H* Rhythm: EKG: ECHO: Stress Test: Cardiac Cath: PCI: CT Surgery: Holter monitor: EPS: PPM: CXR: Chest CT Scan: Radiography Diagnostic Testing: Radiology Impression Chest X-Ray 06/08/22 01:00 IMPRESSION: 1. No evidence of acute cardiopulmonary process Electronically Signed: Kavon Pantoja MD at 1:21 EST ,
[2022-06-08 12:40] LABS: Bedside Glucose 96 mg/dL (74-106)
[2022-06-08] MEDS: Carvedilol 3.125 MG TABLET PO ×2 (12:47→21:30)
[2022-06-08] MEDS: Clopidogrel Bisulfate 75 MG Tablet PO (12:47)
[2022-06-08 16:21] LABS: Bedside Glucose 114 mg/dL (74-106)
[2022-06-08 17:45] LABS: Partial Thromboplast Time 41.7 Seconds (24.1-36.2)
[2022-06-08] MEDS: Atorvastatin Calcium 40 MG Tablet PO (21:30)
[2022-06-09] VITALS (11 sets, daily range): BP systolic 109–128; BP diastolic 59–75; PULSE 55–78; RESP 16–18; TEMP 36.2–36.9; O2SAT 92–94
[2022-06-09 01:06] LABS: Bedside Glucose 118 mg/dL (74-106)
[2022-06-09] MEDS: Budesonide Respules 0.5 MG/2 ML AMPUL.NEB. INHALATION ×2 (06:31→20:54)
[2022-06-09] MEDS: Albuterol 2.5 MG/3 ML VIAL.NEB. INHALATION ×3 (06:31→20:54)
[2022-06-09] MEDS: HEPARIN/D5w 25,000 UNITS 25,000 UNITS/250 ML IV.SOLN. 9 UNITS CONT INF (06:37)
[2022-06-09 07:00] LABS: Bedside Glucose 115 mg/dL (74-106)
[2022-06-09 07:09] LABS: Partial Thromboplast Time 58.4 Seconds (24.1-36.2)
[2022-06-09] MEDS: Aspirin E.C. 81 MG Tablet PO (07:40)
[2022-06-09] MEDS: Carvedilol 3.125 MG TABLET PO ×2 (09:20→20:28)
[2022-06-09] MEDS: Clopidogrel Bisulfate 75 MG Tablet PO (09:21)
[2022-06-09] MEDS: Venlafaxine XR 75 MG Capsule PO (10:14)
--- NOTE | 2022-06-09 11:43 | PCM.PN.HOSP ---
Subjective Subjective Doing well, no issues overnight. Denies any chest pain. Objective Data Objective Data Vital Signs: Vital Signs Temp Pulse Resp BP Pulse Ox O2 Del Method O2 Flow Rate 98.4 F 66 18 123/75 H 94 Room Air 2 06/09/22 09:40 06/09/22 09:40 06/09/22 09:40 06/09/22 09:40 06/09/22 09:40 06/09/22 09:40 06/08/22 09:40 Oxygen Flow Rate (L/min) 2 Oxygen Delivery Method Room Air Weight: 205 lb 7.533 oz Body Mass Index (BMI) 27.8 Intake & Output: Intake and Output for Last 24 Hours 06/08/22 06/09/22 06/10/22 03:59 03:59 03:59 Intake Total 15.6 / 15.6 769.11 / 769.11 44.55 / 44.55 Output Total 700 / 700 Balance 15.6 / 15.6 69.11 / 69.11 44.55 / 44.55 Lab / Micro Data Result Diagrams: 06/08/22 07:00 06/08/22 07:00 Labs: Laboratory Results - last 24 hr 06/08/22 12:06: POC Glucose 96 06/08/22 15:56: POC Glucose 114 H 06/08/22 17:10: APTT 41.7 H 06/08/22 21:29: POC Glucose 118 H 06/09/22 00:11: APTT 49.0 H 06/09/22 06:27: APTT 58.4 H 06/09/22 06:35: POC Glucose 115 H Radiography Diagnostic Testing: Radiology Impression Echocardiogram 06/08/22 10:22 Interpretation Summary No evidence for diastolic dysfunction. Hypokinesis of the posterior wall and lateral daigle Trivial mitral valve insufficiency. The estimated ejection fraction is 45-50 %. Ordering Physician: Yael Eldridge Referring Physician: Daniel Lara M.D. Performed By: Elizabeth Pop RDCS Physical Exam Narrative General: Alert, Oriented x3, Cooperative, No apparent distress HEENT: Atraumatic, PERRLA, EOMI, Normocephalic Oral: Moist Mucosa Neck: Supple, No JVD Lungs: Clear to auscultation, Normal air movement, No rhonchi, No wheeze, No rales Cardiovascular: Regular rate, Regular Rhythm, Normal S1, Normal S2, No murmurs Abdomen: Soft, Non Tender, Non-Distended, No Hepato-splenomegaly Extremities: No edema, Capillary Refill Less than 3 Seconds Skin: No rashes, No breakdown Musculoskeletal: No Tenderness to Palpation of Joints or Extremities Neurological: Cranial nerves II-XII grossly intact, Motor Exam 5/5 strength throughout, Sensory exam intact to light touch and pain Psych/Mental Status: Normal Affect, Appropriate Assessment & Plan Assessment/Plan (1) Non-ST elevated myocardial infarction: (2) History of primary hypertension: (3) History of hypercholesterolemia: PLAN: Plan 1. NSTEMI ? Significantly elevated troponin with ST depressions ? Continue with heparin as well as Coreg, aspirin, Plavix ? Echo demonstrates no diastolic dysfunction with an EF of 45 to 50% with hypokinesis of the posterior and lateral daigle ? Plan for cath on Friday ? Continue with statin 2. DM2 ? Stable, hold meds [place] ? Placed on sliding scale insulin ? Accu-Cheks AC at bedtime ? We will make adjustments as necessary 3. Anxiety/depression ? Stable ? Continue with Effexor 4. Asthma ? Stable ? Continue with inhalers DVT: Heparin drip Charges/Coding Visit Charges Inpatient E&M: 11109 Subs Hosp L2
[2022-06-09 12:41] LABS: Partial Thromboplast Time 57.7 Seconds (24.1-36.2)
[2022-06-09] MEDS: Pantoprazole Sodium 40 MG Tablet PO (13:46)
[2022-06-09 15:16] LABS: Bedside Glucose 144 mg/dL (74-106)
--- NOTE | 2022-06-09 16:44 | PCM.PN.CARD ---
Subjective Subjective Stable. Denies any further chest pain. Objective Data Vital Signs: Vital Signs Temp Pulse Resp BP Pulse Ox O2 Del Method O2 Flow Rate 97.9 F 69 18 119/69 94 Room Air 2 06/09/22 15:40 06/09/22 15:40 06/09/22 15:40 06/09/22 15:40 06/09/22 15:40 06/09/22 15:40 06/08/22 09:40 Oxygen Flow Rate (L/min) 2 Oxygen Delivery Method Room Air Weight: 205 lb 7.533 oz Body Mass Index (BMI) 27.8 Intake & Output: Intake and Output for Last 24 Hours 06/07/22 06/08/22 06/09/22 23:59 23:59 23:59 Intake Total 723.11 / 723.11 586.15 / 586.15 Output Total 700 / 700 Balance 23.11 / 23.11 586.15 / 586.15 Lab / Micro Data Result Diagrams: 06/08/22 07:00 06/08/22 07:00 Labs: Laboratory Results - last 24 hr 06/08/22 17:10: APTT 41.7 H 06/08/22 21:29: POC Glucose 118 H 06/09/22 00:11: APTT 49.0 H 06/09/22 06:27: APTT 58.4 H 06/09/22 06:35: POC Glucose 115 H 06/09/22 11:13: POC Glucose 144 H 06/09/22 12:25: APTT 57.7 H Cardiology Labs/Tests 06/08/22 17:10: APTT 41.7 H 06/09/22 00:11: APTT 49.0 H 06/09/22 06:27: APTT 58.4 H 06/09/22 12:25: APTT 57.7 H Rhythm: EKG: ECHO: Stress Test: Cardiac Cath: PCI: CT Surgery: Holter monitor: EPS: PPM: CXR: Chest CT Scan: Physical Exam HEENT normocephalic Eyes no scleral icterus Resp normal respiratory effort Cardio regular rate Assessment & Plan Assessment/Plan (1) Non-ST elevated myocardial infarction: PLAN: Continue present management. Coronary angiography tomorrow. Charges/Coding Visit Charges Inpatient E&M: 14894 Subs Hosp L1
[2022-06-09 18:55] LABS: Bedside Glucose 145 mg/dL (74-106)
[2022-06-09] MEDS: 0.9% Normal Saline 1,000 ML 15 ML IV (20:27)
[2022-06-09] MEDS: Atorvastatin Calcium 40 MG Tablet PO (20:28)
[2022-06-09 23:20] LABS: Bedside Glucose 148 mg/dL (74-106)
[2022-06-10] VITALS (19 sets, daily range): BP systolic 100–140; BP diastolic 58–115; PULSE 52–80; RESP 16–18; TEMP 36.2–36.8; O2SAT 91–96
[2022-06-10] MEDS: HEPARIN/D5w 25,000 UNITS 25,000 UNITS/250 ML IV.SOLN. 9 UNITS CONT INF (05:48)
[2022-06-10] MEDS: 0.9% Saline Lock 10 ML Syringe IV ×2 (05:48→21:58)
[2022-06-10] MEDS: Carvedilol 3.125 MG TABLET PO ×2 (05:49→21:59)
[2022-06-10] MEDS: Aspirin E.C. 81 MG Tablet PO (05:49)
[2022-06-10] MEDS: Clopidogrel Bisulfate 75 MG Tablet PO (05:51)
--- NOTE | 2022-06-10 05:55 | EKG12_ITS ---
Test Reason : CP ADMISSION Blood Pressure : / mmHG Vent. Rate : 060 BPM Atrial Rate : 060 BPM P-R Int : 176 ms QRS Dur : 112 ms QT Int : 422 ms P-R-T Axes : 048 -36 -39 degrees QTc Int : 422 ms Normal sinus rhythm Left axis deviation Inferior infarct , age undetermined Abnormal ECG When compared with ECG of 08-JUN-2022 01:32, MANUAL COMPARISON REQUIRED, DATA IS UNCONFIRMED Confirmed by JIM SLAUGHTER, ZACH ([id number]), clinical editor JOSE TRAVIS ([id number]) on 06/11/2022 8:42:18 AM Referred By: JOSE Confirmed By:ZACH FERNANDEZ MD
[2022-06-10 06:39] LABS: Absolute Neutrophil Count 2.5 X10^3/uL (2.0-7.7); Basophil# 0.03 X10^3/uL; Basophil% 0.6 % (0-1); Eosinophil# 0.38 X10^3/uL; Eosinophils% 7.4 % (0-5); Hematocrit 45.4 % (40-54); Lymphocyte % 31.3 % (19-41); Mean Corpuscular Hgb 30.7 pg (27.0-32.0); Mean Corpuscular Volume 92.8 fL (80-94); Mean Platelet Vol. 9.9 fl (6.2-12.0); Monocyte# 0.59 X10^3/uL; Monocyte% 11.5 % (0-10); NRBC Flagged by Analyzer 0 % (0-5); Platelet Count 194 K/mm3 (150-450); RBC Distribution Width CV 12.9 % (11.6-14.6); RBC Distribution Width SD 43.1 fl (35.1-43.9); Red Blood Count 4.89 M/mm3 (4.6-6.2); White Blood Count 5.1 K/mm3 (4.4-11.0)
[2022-06-10 06:57] LABS: Partial Thromboplast Time 58.9 Seconds (24.1-36.2)
[2022-06-10 07:04] LABS: Anion Gap 5 (5-15); BUN 22 mg/dL (7-18); Calcium,Total 8.8 mg/dL (8.5-10.1); Chloride 106 mmol/L (98-107); Creatinine, Serum 1.05 mg/dL (0.70-1.30); EST Glomerular Filtration Rate 74 mL/min (>60); Est Glom Filt Rate - Afr Amer 89 mL/min (>60); Estimated Creatinine Clearance 68.77 ml/min; Glucose 121 mg/dL (74-106); Potassium 3.9 mmol/L (3.5-5.1); Sodium Level 140 mmol/L (136-145)
[2022-06-10 07:10] LABS: Bedside Glucose 120 mg/dL (74-106)
[2022-06-10] MEDS: Albuterol 2.5 MG/3 ML VIAL.NEB. INHALATION ×3 (07:18→19:51)
[2022-06-10] MEDS: Budesonide Respules 0.5 MG/2 ML AMPUL.NEB. INHALATION ×2 (07:18→19:51)
[2022-06-10] MEDS: 0.9% Normal Saline 1,000 ML 15 ML IV ×2 (07:53→07:57)
--- NOTE | 2022-06-10 08:29 | NURSING ---
This RN called and gave report to TERESITA Zuleta at chemical lab supervisor.
--- NOTE | 2022-06-10 09:48 | CASEMGMT ---
Tertiary facilities in-network with patient's insurance: [facility], [facility], [facility] , [facility], [facility], [facility]
--- NOTE | 2022-06-10 10:23 | PN.CARD_ITS ---
Subjective Subjective Patient was seen and evaluated this morning. Appears to be doing well. Underwent cardiac catheterization Objective Data Vital Signs: Vital Signs Temp Pulse Resp BP Pulse Ox O2 Del Method O2 Flow Rate 98.0 F 55 L 18 115/82 H 96 Room Air 2 06/10/22 08:09 06/10/22 08:09 06/10/22 08:09 06/10/22 08:09 06/10/22 08:09 06/10/22 08:09 06/08/22 09:40 Oxygen Flow Rate (L/min) 2 Oxygen Delivery Method Room Air Weight: 205 lb 7.533 oz Body Mass Index (BMI) 27.8 Intake & Output: Intake and Output for Last 24 Hours 06/08/22 06/09/22 06/10/22 23:59 23:59 23:59 Intake Total 723.11 / 723.11 1186.15 / 1186.15 391.70 / 391.70 Output Total 700 / 700 Balance 23.11 / 23.11 1186.15 / 1186.15 391.70 / 391.70 Lab / Micro Data Result Diagrams: 06/10/22 05:45 06/10/22 05:45 Labs: Laboratory Results - last 24 hr 06/09/22 11:13: POC Glucose 144 H 06/09/22 12:25: APTT 57.7 H 06/09/22 17:05: POC Glucose 145 H 06/09/22 20:32: POC Glucose 148 H 06/10/22 05:45: WBC 5.1, RBC 4.89, Hgb 15.0, Hct 45.4, MCV 92.8, MCH 30.7, MCHC 33.0, RDW Std Deviation 43.1, RDW Coeff of Willis 12.9, Plt Count 194, MPV 9.9, Immature Gran % (Auto) 0.200, Neut % (Auto) 49.0, Lymph % (Auto) 31.3, [place] % (Auto) 11.5 H, Eos % (Auto) 7.4 H, Baso % (Auto) 0.6, Absolute Neuts (auto) 2.5, Absolute Lymphs (auto) 1.60, Nucleated RBC % 0 06/10/22 05:45: Sodium 140, Potassium 3.9, Chloride 106, Carbon Dioxide 29.0, Anion Gap 5, BUN 22 H, Creatinine 1.05, Estim Creat Clear Calc 68.77, Est GFR (MDRD) Af Amer 89, Est GFR (MDRD) Non-Af 74, BUN/Creatinine Ratio 21.0 H, Glucose 121 H, Calcium 8.8 06/10/22 05:45: APTT 58.9 H 06/10/22 05:56: POC Glucose 120 H Cardiology Labs/Tests 06/09/22 12:25: APTT 57.7 H 06/10/22 05:45: WBC 5.1, RBC 4.89, Hgb 15.0, Hct 45.4, MCV 92.8, MCH 30.7, MCHC 33.0, Plt Count 194, MPV 9.9, Immature Gran % (Auto) 0.200, Neut % (Auto) 49.0, Lymph % (Auto) 31.3, [place] % (Auto) 11.5 H, Eos % (Auto) 7.4 H, Baso % (Auto) 0.6, Absolute Neuts (auto) 2.5, Nucleated RBC % 0 06/10/22 05:45: Sodium 140, Potassium 3.9, Chloride 106, Carbon Dioxide 29.0, Anion Gap 5, BUN 22 H, Creatinine 1.05, Est GFR (MDRD) Af Amer 89, Est GFR (MDRD) Non-Af 74, BUN/Creatinine Ratio 21.0 H, Glucose 121 H, Calcium 8.8 06/10/22 05:45: APTT 58.9 H Rhythm: EKG: ECHO: Stress Test: Cardiac Cath: PCI: CT Surgery: Holter monitor: EPS: PPM: CXR: Chest CT Scan: Physical Exam Const alert, oriented x3 and no apparent distress General Appearance: cooperative HEENT hearing grossly normal bilaterally Head and Scalp: atraumatic Eyes EOMs intact bilaterally Neck General: normal visual inspection Chest inspection of chest normal and palpation of chest normal Resp normal respiratory effort Auscultation: clear to auscultation bilaterally Cardio regular rate, regular rhythm, S1 normal heart sound and S2 normal heart sound Jugular Venous Distention: JVD GI normal to inspection, nondistended, normoactive bowel sounds Extremity normal capillary refill and no pedal edema Peripheral Pulses: Yes pulses 2+ throughout and femoral pulses present Skin no rashes or lesions noted Neuro oriented x3 and CN's II-XII intact bilaterally Psych Appearance: grossly normal and appropriate Assessment & Plan Assessment/Plan (1) Non-ST elevated myocardial infarction: PLAN: He has a history of a recent non-ST elevation myocardial infarction and his cardiac catheterization today demonstrated the following: Normal left main coronary artery Left anterior descending artery which is mild to moderately calcified with a proximal 60 to 70% stenosis in the mid 70% stenosis. Left circumflex artery which is nondominant but large with a first obtuse marginal branch with a proximal 70% stenosis in the mid 90% stenosis. Dominant right coronary artery with a long 90% stenosis noted in the proximal region. His left ventricular ejection fraction demonstrates an aneurysmal inferobasal segment but overall preserved left ventricular systolic function estimated at 50%. Based on the above angiographic findings the patient will be transferred to a tertiary care facility for evaluation for coronary artery bypass surgery. Viability of the inferobasal segment would need to be undertaken hopefully with a cardiac MRI. (2) History of primary hypertension: PLAN: Patient will continue antihypertensive therapy. Would institute carvedilol as well as an TANISHA inhibitor (3) History of hypercholesterolemia: PLAN: High intensity statin would be continued. Thank you for allowing me to participate in the care of your patient. Please don't hesitate to call if any issues arise.
--- NOTE | 2022-06-10 10:36 | CL.D_ITS ---
Patient Name: NASIMA KEYS Study Date: 06/10/2022 Performing: Dieudonne Chowdary MD Ht: 72 inches 182.88 cm : 1950 Wt: 205.47 lbs 93.2 kg Age: 72 Gender: male BSA: 2.15 PROCEDURE(S) PERFORMED DC01-([id number])LHC/COR/LV CLINICAL PROFILE AND INDICATIONS Indications: Suspected CAD Heart Failure: None Stress/Imaging Stress/Image Study Performed: No CAD Presentations: Non-STEMI. Symptom onset Date/Time: 06/08/22 Time Not Available CONCLUSIONS Triple-vessel disease with a high-grade stenosis noted in the proximal right coronary artery and obtuse marginal vessel and moderately severe disease noted in LAD with an aneurysmal inferobasal segment. RECOMMENDATIONS We will transfer to tertiary care facility for consideration for bypass surgery DESCRIPTION OF PROCEDURE The patient arrived to the procedure lab. The risks and benefits of the procedure as well as a full description of our services here and current unavailability of surgical backup were fully explained to the patient and/or their significant other prior to the catheterization. The Timeout was completed, verifying the correct patient and procedure. The patient's procedural site was prepped and draped in the usual fashion. Local anesthetic was given subcutaneously to right radial region with Lidocaine 2%. Using a modified Seldinger technique, arterial access was obtained via the right radial artery, a 6Fr sheath was inserted. Right Coronary Artery selective angiography was then performed in multiple views using a 5 Fr. 4.0 [place] catheter. Left Coronary Artery selective angiography was performed in multiple views using a 5 Fr. JL3.5 catheter. Left Ventriculography was performed in FIGUEROA projection using a 5 Fr. Pigtail catheter. LV to AO pullback pressures were then recorded.The arterial sheath was pulled and a TR Band was applied for hemostasis CORONARY ANGIOGRAPHY DOMINANCE: Right Dominant LEFT HEART ASSESSMENT Left Ventricular Ejection Fraction: by LV Gram 53 % Inferior Basal Dyskinesis - Moderate Normal Left Ventricular systolic function LEFT MAIN: Angiographically normal LEFT ANTERIOR DESCENDING ARTERY: Moderate calcification, The proximal left anterior descending artery has a 60% stenotic lesion followed by an 80% stenotic lesion. Mild diffuse disease is noted in the rest of the vessel. CIRCUMFLEX ARTERY: The first obtuse marginal branch has a proximal 70% stenosis followed by a 90% stenotic lesion in a medium size vessel with a rest of the circumflex having mild disease RIGHT CORONARY ARTERY: A long proximal 90% stenotic lesion is noted COMPLICATIONS No Complications PROCEDURE MEDICATIONS Versed 1 mg IV Fentanyl 50 mcg IV Oxygen: 2 L/min via nasal cannula SUMMARY OF HEMODYNAMIC DATA Time AIR REST ECG 09:30:32 AO 109/51 (71) SA 09:51:30 LV 111/-4, 8 10:19:33 LV 102/2, 9 10:19:45 LV 68/5, 15 10:20:26 LV 105/4, 11 10:20:34 LVp 108/3, 13 10:20:40 AOp 79/-46 (11) 10:20:47 Signed By Dieudonne Chowdary MD On 06/10/2022 10:35:46 Dieudonne Chowdary MD
--- NOTE | 2022-06-10 11:00 | NURSING ---
Romero from [facility] called to ask for a facesheet to be faxed over (I faxed) also to let us know that they will likely not have a bed for the pt until later this evening.
[2022-06-10] MEDS: Venlafaxine XR 75 MG Capsule PO (11:54)
[2022-06-10 11:55] LABS: Bedside Glucose 93 mg/dL (74-106)
[2022-06-10] MEDS: Pantoprazole Sodium 40 MG Tablet PO (11:56)
--- NOTE | 2022-06-10 13:19 | CHAPLAIN ---
Type of Pastoral Visit _x__ Initial Visit ___ Follow-up Visit ___ On-call Visit ___ General Patient Visit ___ Spiritual Assessment ___ Family Conference ___ Bereavement ___ Rapid Response ___ Code Blue ___ Other (describe below) Pastoral Care Referral From _x__ Patient ___ Family ___ Nurse ___ Physician ___ Director Of Residence Life ___ Food Service Associate ___ Other (describe below) Sacrament/Intervention _x__ Active listening ___ Anointing ___ Confucianism ___ Bereavement ___ Communion _x__ Yu exploration ___ _x__ Life review _x__ Prayer ___ Reconciliation ___ Sacrament of Sick _x__ Supportive presence ___ Wedding ___ Other (describe below) Pastoral Comments patient and daughter are in the room; pt tells his health issues and that he is waiting on word about transfer for heart surgery; pt gives some life review; pt states that he does not worry about things outside of his control; pt gives some life review and his interests; pt is not involved in a yu group but welcomes presence and prayer
[2022-06-10 16:46] LABS: Bedside Glucose 126 mg/dL (74-106)
--- NOTE | 2022-06-10 17:24 | PCM.PN.HOSP ---
Objective Data Objective Data Vital Signs: Vital Signs Temp Pulse Resp BP Pulse Ox O2 Del Method O2 Flow Rate 98.0 F 60 16 100/75 92 Room Air 2 06/10/22 15:17 06/10/22 15:17 06/10/22 15:17 06/10/22 15:17 06/10/22 15:17 06/10/22 15:17 06/08/22 09:40 Oxygen Flow Rate (L/min) 2 Oxygen Delivery Method Room Air Weight: 93.2 kg Body Mass Index (BMI) 27.8 Intake & Output: Intake and Output for Last 24 Hours 06/08/22 06/09/22 06/10/22 23:59 23:59 23:59 Intake Total 723.11 / 723.11 1186.15 / 1186.15 491.20 / 491.20 Output Total 700 / 700 400 / 400 Balance . 1186.15 / 1186.15 91.20 / 91.20 Lab / Micro Data Result Diagrams: 06/10/22 05:45 06/10/22 05:45 Labs: Laboratory Results - last 24 hr 06/09/22 17:05: POC Glucose 145 H 06/09/22 20:32: POC Glucose 148 H 06/10/22 05:45: WBC 5.1, RBC 4.89, Hgb 15.0, Hct 45.4, MCV 92.8, MCH 30.7, MCHC 33.0, RDW Std Deviation 43.1, RDW Coeff of Willis 12.9, Plt Count 194, MPV 9.9, Immature Gran % (Auto) 0.200, Neut % (Auto) 49.0, Lymph % (Auto) 31.3, [place] % (Auto) 11.5 H, Eos % (Auto) 7.4 H, Baso % (Auto) 0.6, Absolute Neuts (auto) 2.5, Absolute Lymphs (auto) 1.60, Nucleated RBC % 0 06/10/22 05:45: Sodium 140, Potassium 3.9, Chloride 106, Carbon Dioxide 29.0, Anion Gap 5, BUN 22 H, Creatinine 1.05, Estim Creat Clear Calc 68.77, Est GFR (MDRD) Af Amer 89, Est GFR (MDRD) Non-Af 74, BUN/Creatinine Ratio 21.0 H, Glucose 121 H, Calcium 8.8 06/10/22 05:45: APTT 58.9 H 06/10/22 05:56: POC Glucose 120 H 06/10/22 11:26: POC Glucose 93 06/10/22 16:13: POC Glucose 126 H
--- NOTE | 2022-06-10 18:16 | PCM.DC ---
Discharge Instructions Diet Discharge Diet: - (Cardiac diet) Activity Discharge Activity: Return to Normal Activity Follow Up Care Test Results: Test results from this visit will be discussed in further detail at your follow-up appointment, if applicable. Discharge Plan Admission Admit Date/Time: 06/08/22 01:28 Primary Reason for Your Visit: Chest pain Attending Provider: Sowmya Finn Primary Care Provider: Daniel Lara Consulting Providers: Yael Eldridge ; Simba Ceja ; Benny Baltazar Instructions Patient Instructions: CAD Additional Instructions / Restrictions: -You have been started on an aspirin and a statin as well as carvedilol -You will be transferred to [facility] in [place] for evaluation for your coronary artery disease Discharge Orders/Prescriptions Prescriptions: New atorvastatin 40 mg Tablet 40 mg PO QHS Qty: 0 0RF aspirin 81 mg Tablet,Delayed Release (Dr/Ec) 81 mg PO BREAKFAST Qty: 0 0RF carvedilol 3.125 mg Tablet 3.125 mg PO BID Qty: 0 0RF insulin lispro [Humalog KwikPen Insulin] 100 unit/mL Insulin Pen See Protocol subcut ACHS Qty: 0 0RF Protocol: 1. Sliding Scale Insulin Low Dosing Condition: 150-224 mg/dl = 1 unit Condition: 225-299 mg/dl = 2 units Condition: 300-374 mg/dl = 3 units Condition: 375-499 mg/dl = 4 units Condition: Greater than 449 call physician Protocol Text: - Use for Total Daily Dose of Insulin 15-27 units - Thin, elderly, renal patients LOW DOSING ALGORITHM sennosides-docusate sodium [Stool Softener-Stimulant Laxat] 8.6-50 mg Tablet 2 tab PO BID PRN PRN (Reason: Constipation) Qty: 30 0RF pantoprazole 40 mg Tablet,Delayed Release (Dr/Ec) 40 mg PO DAILY Qty: 30 0RF Continued venlafaxine 75 mg Tablet 75 mg PO DAILY Dulera 200-5 mcg/actuation Hfa Aerosol Inhaler 2 puff INHALATION BID Held metformin 500 mg Tablet Extended Release 24 Hr 500 mg PO DAILY Hold Instructions: Resume on 06/19/22. Referrals / Follow Up: Daniel Lara MD [Primary Care Provider] - Disposition Disposition (needs filled in before D/C Order can be placed): DC/Tx to Another Type of HCF
--- NOTE | 2022-06-10 18:24 | PCM.DC.SUM ---
Providers Date of Admission: 06/08/22 Date of Discharge: 06/10/22 Primary Care Physician: Dr. Daniel Lara MD Consultations 06/08/22 03:12 Consult: Cardiology Routine Consulting Provider: Yael Eldridge Reason for Consult: NSTEMI EMERGENT Consult: No MD Notified: Yes Date Notified: 06/08/22 Time Notified: 01:33 Method of Notification: ED Physician Initiated Reason For Visit: UNSTABLE ANGINA Diagnosis Discharge Diagnosis (1) Non-ST elevated myocardial infarction: Status: Acute Code(s): I21.4 - Non-ST elevation (NSTEMI) myocardial infarction (2) History of primary hypertension: Status: Acute Code(s): Z86.79 - Personal history of other diseases of the circulatory system (3) History of hypercholesterolemia: Status: Acute Code(s): Z86.39 - Personal history of other endocrine, nutritional and metabolic disease Plan #NSTEMI Elevated troponins with chest pain Cardiac cath revealed multivessel disease To be transferred to [facility] for cardiothoracic surgery evaluation On aspirin, statin, beta-sussy #Type 2 diabetes mellitus Sliding scale insulin and Accu-Cheks Medications at Discharge Home Medications metformin 500 mg tablet,extended release 24 hr 500 mg PO DAILY 06/08/22 mometasone-formoterol HFA 200 mcg-5 mcg/actuation aerosol inhaler (Dulera) 2 puff inhalation BID 06/08/22 venlafaxine 75 mg tablet 75 mg PO DAILY 06/08/22 aspirin 81 mg tablet,delayed release 81 mg PO BREAKFAST #0 tabs 06/10/22 atorvastatin 40 mg tablet 40 mg PO QHS #0 tabs 06/10/22 carvedilol 3.125 mg tablet 3.125 mg PO BID #0 tabs 06/10/22 insulin lispro 100 unit/mL subcutaneous pen (Humalog KwikPen (U-100) Insulin) See Protocol subcut ACHS #0 mL 06/10/22 pantoprazole 40 mg tablet,delayed release 40 mg PO DAILY #30 tabs 06/10/22 sennosides 8.6 mg-docusate sodium 50 mg tablet (Stool Softener-Stimulant Laxative) 2 tab PO BID PRN PRN Constipation #30 tabs 06/10/22 Hospital Course Procedures Cardiac catheterization Summary of Care Provided Minutes Spent on Discharge: 20 Hospital Course: ? [id number] male with history of hypertension who presented to [facility]/ with significant elevation of troponin and ST depressions, he was started on heparin as well as Coreg, aspirin, Plavix. Echo demonstrated no diastolic dysfunction with an EF of 45 to 50% with hypokinesis of the posterior and lateral daigle. Cardiac catheterization demonstrated 60% lesion in the LAD followed by an 80% lesion. First obtuse marginal branch and the circumflex had proximal 70% stenosis followed by 90% stenotic lesion and a medium size vessel and RCA had long proximal 90% stenotic lesion. Discussed with cardiology and transfer to a tertiary care facility for CABG evaluation was advised. Dr. Chowdary contacted Dr. Ibrahim at [facility] in [place] for transfer, Mr. Marcus was accepted for transfer the evening of 06/10/2022. On the day of discharge she denied any chest pain or shortness of breath, no other complaints today. Physical Exam Const alert and oriented x3 General Appearance: cooperative and comfortable HEENT normocephalic and head/scalp atraumatic Eyes EOMs intact bilaterally Neck supple Resp normal respiratory effort and clear to auscultation bilaterally Cardio regular rate and regular rhythm GI soft to palpation, non-tender and non-distended Extremity normal to inspection Skin no rashes or lesions noted Neuro moves all extremities Psych affect normal Weight / BMI Weight Weight: 93.2 kg Body Mass Index (BMI) 27.8 ABG / Lab / Microbiology Data Result Diagrams: 06/10/22 05:45 06/10/22 05:45 Laboratory: Laboratory Results - last 24 hr 06/09/22 17:05: POC Glucose 145 H 06/09/22 20:32: POC Glucose 148 H 06/10/22 05:45: WBC 5.1, RBC 4.89, Hgb 15.0, Hct 45.4, MCV 92.8, MCH 30.7, MCHC 33.0, RDW Std Deviation 43.1, RDW Coeff of Willis 12.9, Plt Count 194, MPV 9.9, Immature Gran % (Auto) 0.200, Neut % (Auto) 49.0, Lymph % (Auto) 31.3, [place] % (Auto) 11.5 H, Eos % (Auto) 7.4 H, Baso % (Auto) 0.6, Absolute Neuts (auto) 2.5, Absolute Lymphs (auto) 1.60, Nucleated RBC % 0 06/10/22 05:45: Sodium 140, Potassium 3.9, Chloride 106, Carbon Dioxide 29.0, Anion Gap 5, BUN 22 H, Creatinine 1.05, Estim Creat Clear Calc 68.77, Est GFR (MDRD) Af Amer 89, Est GFR (MDRD) Non-Af 74, BUN/Creatinine Ratio 21.0 H, Glucose 121 H, Calcium 8.8 06/10/22 05:45: APTT 58.9 H 06/10/22 05:56: POC Glucose 120 H 06/10/22 11:26: POC Glucose 93 06/10/22 16:13: POC Glucose 126 H D/C Instructions Discharge Diet: - (Cardiac diet) Meaningful Use Info Meaningful Use Diagnoses (Choose all that apply): AMI AMI/Post PCI/Angioplasty Aspirin given w/in 24hrs of arrival?: Yes ASA at discharge?: Yes Statins at discharge?: Yes Mono/ARB at discharge?: No Reason Mono/ARB not ordered:: Hypotension Beta Sussy at discharge?: Yes Done w/ Acute MS measure.: Yes Documented LVEF (%): 45 Discharge Plan Admission Admit Date/Time: 06/08/22 01:28 Primary Reason for Your Visit: Chest pain Attending Provider: Sowmya Finn Primary Care Provider: Daniel Lara Consulting Providers: Yael Eldridge ; Simba Ceja ; Benny Baltazar Instructions Patient Instructions: CAD Additional Instructions / Restrictions: -You have been started on an aspirin and a statin as well as carvedilol -You will be transferred to [facility] in [place] for evaluation for your coronary artery disease Discharge Orders/Prescriptions Prescriptions: New atorvastatin 40 mg Tablet 40 mg PO QHS Qty: 0 0RF aspirin 81 mg Tablet,Delayed Release (Dr/Ec) 81 mg PO BREAKFAST Qty: 0 0RF carvedilol 3.125 mg Tablet 3.125 mg PO BID Qty: 0 0RF insulin lispro [Humalog KwikPen Insulin] 100 unit/mL Insulin Pen See Protocol subcut ACHS Qty: 0 0RF Protocol: 1. Sliding Scale Insulin Low Dosing Condition: 150-224 mg/dl = 1 unit Condition: 225-299 mg/dl = 2 units Condition: 300-374 mg/dl = 3 units Condition: 375-499 mg/dl = 4 units Condition: Greater than 449 call physician Protocol Text: - Use for Total Daily Dose of Insulin 15-27 units - Thin, elderly, renal patients LOW DOSING ALGORITHM sennosides-docusate sodium [Stool Softener-Stimulant Laxat] 8.6-50 mg Tablet 2 tab PO BID PRN PRN (Reason: Constipation) Qty: 30 0RF pantoprazole 40 mg Tablet,Delayed Release (Dr/Ec) 40 mg PO DAILY Qty: 30 0RF Continued venlafaxine 75 mg Tablet 75 mg PO DAILY Dulera 200-5 mcg/actuation Hfa Aerosol Inhaler 2 puff INHALATION BID Held metformin 500 mg Tablet Extended Release 24 Hr 500 mg PO DAILY Hold Instructions: Resume on 06/19/22. Referrals / Follow Up: Daniel Lara MD [Primary Care Provider] - Disposition Disposition (needs filled in before D/C Order can be placed): DC/Tx to Another Type of HCF Charges/Coding Visit Charges Inpatient E&M: 39013 Disch Hosp
[2022-06-10] MEDS: Atorvastatin Calcium 40 MG Tablet PO (21:59)
[2022-06-10 22:25] LABS: Bedside Glucose 115 mg/dL (74-106)
== END 2022-06-11 01:55 | disposition short-term general hospital (02) | DRG 282 ==
LOC: ED 02:01 → PCU 02:17
PROVIDERS: Family Medicine; Admitting Provider Hospitalist; Emergency Provider Emergency Medicine; PCP Internal Medicine; Visit Provider Internal Medicine
DX: I21.4 Non-ST elevation (NSTEMI) myocardial infarction (principal); E11.21 Type 2 diabetes mellitus with diabetic nephropathy; E11.65 Type 2 diabetes mellitus with hyperglycemia; E11.22 Type 2 diabetes mellitus with diabetic chronic kidney disease; Z79.4 Long term (current) use of insulin; I25.110 Atherosclerotic heart disease of native coronary artery with unstable angina pectoris; J45.909 Unspecified asthma, uncomplicated; I12.9 Hypertensive chronic kidney disease with stage 1 through stage 4 chronic kidney disease, or unspecified chronic kidney disease; N18.2 Chronic kidney disease, stage 2 (mild); E78.00 Pure hypercholesterolemia, unspecified; F41.9 Anxiety disorder, unspecified; F32.A Depression, unspecified; Z79.02 Long term (current) use of antithrombotics/antiplatelets; Z79.82 Long term (current) use of aspirin; Z79.84 Long term (current) use of oral hypoglycemic drugs; Z79.899 Other long term (current) drug therapy
CPT/HCPCS: 36415; 71045; 80048; 80061; 82962; 84484; 85025; 85610; 85730; 93005; 93306; 93458; 94640; 99152; 99153; 99285; J7030; Q9967; A4216; C1769; C1894

== ENCOUNTER → 2022-08-05 | Outpatient (CLI) | payer MEDICARE, SELFPAY ==
--- NOTE | 2022-08-05 09:30 | PCM.CR.HP2 ---
CR - History & Physical - General Arrival date:: 08/05/22 Arrival time:: 09:30 Date of Referral:: 07/04/22 Date of CR Evaluation:: 08/05/22 Referring Physician: Dr. Dieudonne Chowdary Primary Diagnosis: NSTEMI, PCI w/coronary stenting - History of Present Cardiac Event Onset Date: Enter Onset Date of cardiac illnesses in Comment field below Acute Myocardial Infarction within 12 months:: Yes - Non- ST Elevated Myocardial Infarction (Non-STEMI) 06/08/2022 Coronary Artery Bypass Graft:: Yes - S/P CABG 06/08/2022 Interventions with present event:: Echocardiographic testing, heart catheterization, carotid duplex ultrasound Were there any complications?: none; - Sleep Disorder Evaluation Hx of Sleep Apnea: Yes Do you snore loudly (louder than talking or can be heard through closed doors)?: Yes - has CPAP at home History of Hypertension (for STOP score): Yes - Medications Home Medications: Ambulatory Orders Medication Instructions Recorded metformin 500 mg tablet,extended 500 mg PO DAILY 06/08/22 release 24 hr mometasone-formoterol HFA 200 2 puff inhalation BID 06/08/22 mcg-5 mcg/actuation aerosol inhaler (Dulera) venlafaxine 75 mg tablet 75 mg PO DAILY 06/08/22 aspirin 81 mg tablet,delayed 81 mg PO BREAKFAST #0 tabs 06/10/22 release insulin lispro 100 unit/mL See Protocol subcut ACHS #0 mL 06/10/22 subcutaneous pen (Humalog KwikPen (U-100) Insulin) sennosides 8.6 mg-docusate sodium 2 tab PO BID PRN PRN Constipation 06/10/22 50 mg tablet (Stool #30 tabs Softener-Stimulant Laxative) metoprolol tartrate 25 mg tablet 25 mg PO BID 07/03/22 multivitamin 1 tab PO DAILY 07/03/22 omeprazole 20 mg capsule,delayed 20 mg PO DAILY 07/03/22 release rosuvastatin 40 mg tablet 40 mg PO DAILY 07/03/22 acetaminophen 500 mg tablet 1,000 mg PO BID 07/04/22 (Tylenol Extra Strength) ibuprofen 200 mg capsule 200 mg PO Q6H PRN 07/04/22 - Allergies Allergies/Adverse Reactions: Allergies cat dander Allergy (Verified 07/04/22 11:26) Other Advanced Directives - Advanced Directives Power of Nonfarm Animal Caretaker: Yes - Daughter is a POA for financial but has not been set up as POA Healthcare Living Will: No Advance Directives Information Provided: Yes Advance Directives on File: No DNR Order?:: No - MOLST See MOLST form: No Past Medical History - Covid-19 Screening Fever: No Unexplained muscle aches: No Current respiratory symptoms: No Upper respiratory infections symptoms: No Gastro-intestinal symptoms: No Tgt-Phee-[id number] symptoms: No Has tested positive for COVID-19 in last 30 days: No Date of testin08/05/22 - Has not been vaccinated Had contact w/person w/symptoms or Covid-19 (+) last 14 days: No Has High Risk Exposures ID'd by Health dept/Inf Control team: No 65 years or older:: Yes Lives in Assisted Living facility:: No Has a chronic lung disease or moderate to severe asthma:: No Has a serious heart condition:: No Immunocompromised:: No Severely obese (Body Mass Index of 40 or higher):: No Diabetic:: Yes Has chronic kidney disease undergoing dialysis:: No Has liver disease:: No - Past Medical Illness Medical History: Past Medical History (Last Reviewed 07/04/22 @ 16:[address] Dieudonne Chowdary MD) Anxiety F41.9 Asthma J45.909 Atherosclerosis of coronary artery of [place] heart without angina pectoris I25.10 Diabetes E11.9 Essential (primary) hypertension I10 Hyperlipidemia E78.5 NAYE (obstructive sleep apnea) G47.33 - Past Surgical History Surgical History: Past Surgical History (Last Reviewed 07/04/22 @ 16:[address] Dieudonne Chowdary MD) History of coronary artery bypass graft x 3 Onset Date: ~06/12/22 Z95.1 FLORES-LAD,RSVG-OM1,RSVG-PDA (Dr. Ibrahim-Yan) History of herniorrhaphy Z98.890, Z87.19 History of tonsillectomy Z90.89 Hx of left heart catheterization by ventricular puncture Onset Date: ~06/10/22 Z98.890 - Family History Summary Family History: Family History (Last Reviewed 07/04/22 @ 16:[address] Dieudonne Chowdary MD) Brother Myocardial infarction, Onset Age: 39 CAD (coronary artery disease) Father CAD (coronary artery disease) Other Heart disease Social History - Smoking History Smoking Status: Never smoker - Alcohol Use Alcohol Usage: No - only on very stephanie occasions - Substance Abuse Hx Substance Use: No - Occupation Occupation (List type of work in comments):: Employed Hours worked per day:: 4 - Has not returned to work due to lifting restrictions - Hobbies, Recreation, Social Activities Hobbies: Sports - golf and bowling, Other - truck driver rubbish collector Recreational Activities: I am able to engage in most, but not all activities Social Environment - Status Marital Status: Single - Current Living Arrangements Living Environment:: Alone - Children How many children do you have?: 3 - 3 childrem 4 grandchildren Do any of your children live nearby?: Yes - Safety Do you feel safe in your surroundings?: Yes - Assistance Do you need any assistance at home?: no Review of Systems - Review of Systems Hints: Right click = Denies ([place]). Left click = Reports ([place]) Review of Present Symptoms: Reports: Operative Discomfort - still a little sore at site of vein harvesting, Wound Healing, Appetite - Normal, Appetite - Special Diet - follow Diabetic Diet for 10 years., Sleep - Normal. Denies: Shortness of Breath at Rest, Shortness of Breath with Exertion, Dizziness/Lightheadedness, Fatigue, Heart Arrhythmia/Irregularities, Sexual Changes - Pain Is Patient Pain Free?: Yes Pain Location: none Pain Level: 0/10 Risk Factor Assessment - Chief Complaint Chief Complaint: Pleasant 72 yr male patinet of Dr. Dieudonne Chowdary who presents to cardiac rehab today following recent Non-St Elevated Myocardial Infarction in June and after some diagnostic testing eventually ended up with coronary bypass at [facility] ([facility]) - Vital Signs Temperature: 98.2 F Respiratory Rate: 14 Pulse Ox: 97 Blood Pressure: 127/84 - mechanical Nailbeds:: pink - Pulse Pulse Rate: 60 Pulse Rhythm: Regular - Hypertension How long have you been treated?: recent medication added since surgery Blood Pressure Sitting - Left Arm: 127/84 - mechanical - Blood Cholesterol/Lipids Total Cholesterol (mg/dL) Goal = less than 200 mg/dL: 162 HDL Cholesterol (mg/dL) Goal = less than 40 mg/dL: 62 LDL Cholesterol (mg/dL) Goal = less than 70 mg/dL: 87 Triglycerides (mg/dL) Goal = less than 150 mg/dL: 65 - Diabetes Diabetic History: Type II, Medication Dependent, Insulin Dependent Nutrition Referral for Diabetes: Yes - Obesity Height: 6 ft Weight:: 203 lb Weight in Pounds: 203.0 lbs Weight Source: Stated by Patient Body Mass Index (BMI): 27.5 Nutritional Referral for Obesity: No - Risk Stratification Risk Guidelines: Lowest Risk: Risk Factor for Smoking, Risk Factor for Dyslipidemia, Risk Factor for Obesity, Risk Factor for Hypertension, Risk Factor for Sedentary Lifestyle, Risk Factor for Depression, Moderate Risk: Risk Factor for Diabetes - Family History Family History: Family History (Last Reviewed 07/04/22 @ 16:[address] Dieudonne Chowdary MD) Brother Myocardial infarction, Onset Age: 39 CAD (coronary artery disease) Father CAD (coronary artery disease) Other Heart disease Motivation - Motivation to Participate On a scale of 1 to 10, how prepared are you to commit to attending program?: 8 What do you see as barriers to successfully being able to complete the program?: not that I am aware of, no. What do you see as the benefits of succesfully completing the program? In other words, what do you hope to get out of participating in the program?: improve general health, strength, get back to work. Are there issues you are dealing with that will interfere with completing the program?: No Do you have a spouse or signficant other, family or friends who will help support you to complete the program?: Yes
--- NOTE | 2022-08-05 09:31 | PCM.CR.ITP ---
Diagnosis - General Information Admitting Diagnosis: S/P CABG, Non-ST Elevated Myocardial Infarction (Non-STEMI) Secondary Diagnosis: Diabetes Type II, Hypertension, Hyperlipidemia Personal Learning Style:: Audio/Visual, Written Barriers to Learning: Vision Impairment Stage of change r/t lifestyle modifications:: Action Gave educational material for:: Treating Heart Disease, Emotions & Heart Disease, Stress Management & Relaxation, Sleep Disorders & Heart Disease, How The Heart Works, What it means to have Heart Disease, How Coronary Artery Disease is Diagnosed, Heart Procedures, What Heart Medications Do, Risk Factors & Modifications, Living an Active Life, Nutrition - Education/Goals Individual Counseling: Initial Assessment: Abnormal Cholesterol Levels, High Blood Pressure, Diabetes - glucose 121 No A1c Cardiac Rehabilitation Goals: 1. Maintain the individual as the primary focus of care. 2. To improve the patient's quality of life. 3. Identification of cardiac risk factors and provide cardiac risk factor management. 4. Enhance the psychosocial status of the patient. 5. Reconditioning enough to allow the patient to resume customary activities. 6. Control symptoms of cardiac disease Personal Goals: Initial Assessment: Improve energy level, Get back to work, or to resume activities faster, Improve knowledge of cardiac disease, Improve muscle strength and endurance, Control risk factors (learn risk factor modification) Scale for measuring improvement of personal goals: Enter appropriate number in Comments. 2 = Unchanged. 3 = Slightly Better. 4 = Moderate Improvement. 5 = Met my Goal - Diagnosis & Disease Process Outcomes/Goals: Pt IDs own risk factors & lifestyle modifications by Session 10, Verbalizes symptoms of angina & response by session 3., Pt independently manages Plan/Interventions: Assist Pt to ID & engage in lifestyle modification to reduce CVD risk, Instruct on individual risk factors, Review symptoms of angina & emergency actions, Review secondary diagnosis & identify educational needs. - Safety Referral to Physical Therapy: No Referral to [facility] Case Management: No Fall Risk Assessed:: Yes Assistive Devices:: None Exercise - Initial Assessment - Visit Date of Eval: 08/05/22 Session #:: 0 - Pre- cardiac rehab evaluation Mets: Pre-: >7 METS for 30 minutes by discharge - Physician Prescribed Exercise Modalities: Treadmill, Airdyne, NuStep Frequency: 3x/week for 12 weeks [36 sessions] Intensity: 60-80% of age predicted maximum heart rate reserve Duration: 30 - 45 minutes Current METSs:: 3.0 Target Heart Rate:: 96-110 Resting Blood Pressure: 127/84 EKG Type: Sinus Bradycardia - Outcomes & Goals Goals:: Verbalizes understanding of THR, RPE & goal METS by session 6, Documents in home exercise log/reports 30 min aerobic 5 day/wk by DC, Demonstrates accurate pulse taking by DC - Intervention & Plan Exercise Program Goals: Instruct on personal THR & RPE, Instruct on MET level & personal MET goal, Show patient to take own pulse /validate performance until accurate, Instruct on home exercise - Physical Activity Home Exercise Physical Activity - Home Exercise: Safe Exercise, Warm-up, Self-monitoring, Cool-Down, Home Exercise > 30 min Daily, Sitting Time <3 hours/daily - Outcomes & Goals Outcomes/Goals: Demonstrates correct Warm-up/exercise Cool-Down (S3) if = 2.5 METs, Verbalizes symptoms of exercise intolerance by Session 3 (S3), Demonstrate safe equipment use (S3) & follows exercise prescrition (6) - Intervention & Plan Plan/Intervention: Instruct warm-up & cool-down if exercising at > 2 METs, Instruct on symptoms of exercise intolerance & actions to take, Instruct & monitor on saf, Assess intial functional capacity & safety risk Nutrition - Initial Assessment - Program Goals Nutrition Program Goals: LDL <100 optimal. 100 - 129 Near optimal. 130 - 159 Borderline High. 160 - 189 High. Total Cholesterol <200 desirable. 200 - 239 Borderline High. >/= 240 High. HDL < 40 Low >/=60 High. Triglycerides <150 desirable. <199 optimal. VlDL 5 - 40. HgbA1C <7%. BMI <25 Patient has diagnosis of Hyperlipidemia (ICD E78)?: Yes - Visit Date of Assessment:: 08/05/22 Session #:: 0 - Pre-cardiac Rehab Evaluation - Cholesterol/Lipids (Other Core Measures) Triglycerides (mg/dL): 65 Total Cholesterol (mg/dL): 162 LDL Cholesterol (mg/dL): 87 HDL Cholesterol (mg/dL): 62 Determine presence & major risk factors that modify LDL goal: Hypertension or hypertensive medication, Age men > 45 years; women >/= 55 years Outcomes/Goals: Pt IDs own risk factors & lifestyle modifications by Session 10, Verbalizes symptoms of angina & response by session 3., Pt independently manages Intervention/Plan: Instruct on personal lipid levels & lipid goals/NCEP guidelines, Instruct on cholesterol Referral to dietitian:: Yes - Diabetes (Other Core Measures) Diabetes Type: Diagnosis Type II ICD-10 E11 Fasting blood glucose:: 121 Hgb A1C (4.2 - 6.3): N/A Insulin dependent injection/pump?: Yes - Insulin Lispro Non-Insulin Dependent?: Yes - Metformin 500mg, Outcomes/Goals:: Able to state symptoms of, Able to state, Able to state Intervention/Plan:: Instruct on, Refer to, Instruct on - Weight Mgt (Other Care) Height: 6 ft Weight:: 203 lb BMI: 27.5 Diagnosis Overweight/Obesity BMI> 30% ICD-10 E66: No Diagnosis High BMI/Morbid Obesity BMI> 35% ICD-10 Z68: No Outcomes/Goals: Pt sets, maintains & shows weight loss goal & trend during rehab Intervention/Plan: Instruct on ideal BMI & set weight loss goal w/patient - Healthy Eating Habits Will attend diet classes:: Yes Outcomes/Goals:: Consume diet rich in vegs,fruits,whole grain/high fiber,fish,lean meat, Limit sat/trans fats,cholesterol & added salts & sugars Intervention/Plan:: Assess current eating habits - Education Gave educational materials for:: Signs & symptoms of hypoglycemia, Signs & symptoms of hyperglycemia, Relate diabetes to coronary artery disease, Healthy eating Nutrition - 30-Day Assessment Nutrition - 60-Day Assessment Nutrition - 90-Day Assessment Nutrition - Final Assessment Core - Initial Assessment - Visit Date of Eval: 08/05/22 Session #:: 0 - Pre-cardiac Rehab evluation - Medication Compliance Preventative Medication(s):: Aspirin, Statin/lipid, Beta jamie H/O mental health issues: depression, anxiety, or addiction?: No Doesn?t believe in the benefits of treatment?: No Believes medications are unnecessary or harmful?: No Has a concern about medication side effects?: No Expresses concern over the cost of medications?: No Outcomes/Goals: Verbalizes medications,desired effect & common side effects @ DC, Pt self-reports following medication regimen, Keeps card in wallet w/medications listed by DC Interventions/plans: Instruct on medication effects & side effects, Review medication list w/patient every two weeks, Instruct importance of taking meds as ordered & assist problem solving - Tobacco Use Tobacco Use: Non-smoker - Hypertension Hypertension Diagnosis:: Hypertension ICD-10 I10 Resting Blood Pressure:: 127/84 [place] [employer] Hypertension Guidelines: [place] [employer] Hypertension Guidelines. Normal BP Less than 120/80. Elevated BP 120/80. Hypertension Stage 1: BP 130-139/80-89. Hypertesnion Stage 2: BP 140 or higher/90 or higher. Hypertension Crisis: BP higher than 180/120 Outcomes/Goals: Able to verbalize/achieve optimal blood pressure <130/80, Incorporates diet changes & exercise for blood pressure control by DC Interventions/plan: Instruct on optimal blood pressure, hypertension & medications, Instruct on effects of sodium, alcohol, stress, exercise &hypertension - Tobacco Cessation Referral Smoking Cessation Referral:: No Individual Education/Counseling:: No Education Schedule Given:: Yes Core - 30-Day Assessment Core - 60-Day Assessment Core - 90 Day Assessment Core - Final Assessment Psychosocial - Initial Assess - VIsit Date of Eval: 08/05/22 Session #:: 0 Not Applicable: Yes History of previous Mental disease:: No - Psychosocial Test Tool Used:: [employer] QOL Cardiac, PHQ-9 Questionnaire phq-9 Severity: Severity. 1-4 Minimal Depression. 5-9 Mild Depression. 10-14 Moderate Depression. 15-19 Moderately Sever Depression. 20-27 Severe Depression. Rule: - Referral to Behavioral Health PS - Interventions: Yes Attend Stress Management Classes, No Referral to Behavioral Health if PHQ-9 score >9:, No Referral to [facility], No Referral to Physician if PHQ-9 if score is 5-9: - Outcomes/Goals: See list Psychosocial Outcomes/Goals:: ID's personal stressors & 2 strategies to manage stress by discharge - Intervention/Plan: See List Interventions/Plan:: Assess stressors,coping strategies & signs of derpression on admission, Instruct/assist pt to develop coping & personal stress Mgt strategies, Instruct patient to recognize signs & symptoms of depression, Instruct patient to recog Psychosocial - 30-Day Assess Psychosocial - 60-Day Assess Psychosocial - 90-Day Assess Psychosocial - Final Assessmen Patient Health Questionnaire Initial Assessment 1. Little interest or pleasure in doing things: Several days 2. Feeling down, depressed, or hopeless: Several days 3. Trouble falling or staying asleep, or sleeping too much: Several days 4. Feeling tired or having little energy: Several days 5. Poor appetite or overeating: Not at all 6. Feeling bad about yourself -- or that you are a failure or have let yourself or your family down: Not at all 7. Trouble concentrating on things, such as reading the newspaper or watching television: Not at all 8. Moving or speaking so slowly that other people could have noticed. Or the opposite - being so fidgety or restless that you have been moving around a lot more than usual: Not at all 9. Thoughts that you would be better off , or of hurting yourself in some way: Not at all How difficult have these problems made it for you to do your work, take care of things at home, or get along with other people?: Not difficult at all Total Score: 4 PRICE-Q SV Test - Statements CAD is a disease of the arteries in the heart: False Examples of risk factors for heart disease: True Angina is chest pain or discomfort: True The benefits of resistance training include: True Eating more meat and dairy products: True Anti-platelet medications such as aspirin are important: True The only effective way to manage stress: False An exercise warm-up slowly increases heart rate: I Don't Know Prepared, processed foods usually have high sodium: True Depression is common after a heart attack: I Don't Know The statin medications lower cholesterol: True To control blood pressure, lower the amount of sodium: True If someone gets chest discomfort during walking: False Transfats are partially hydrogenated vegetable oils: I Don't Know Sleep apnea that is not treated increases the risk: I Don't Know To control cholesterol, one should become a vegetarian: False Someone knows if he/she is exercising at the right level: True Diabetes cannot be prevented with exercise & health eating: I Don't Know Stress is a large risk for heart attack: True A diet that can help lower blood pressure is rich in: True - Total Score Total Correct Responses: 14 Self-Efficacy Initial Assessment We would like to know how confident you are in doing certain activities. Please select your confidence level for:: Select your confidence level for the following using the scale 1-10 where 1 is not at all confident and 10 is totally confident. Your score is the average of all 6 responses. Fatigue: How confident are you that you can keep the fatigue caused by your disease from interfering with the things you want to do? Select Number: 7 Physical Discomfort or Pain: How confident are you that you can keep the physical discomfort or pain of your disease from interfering with the things you want to do? Select Number: 7 Emotional Distress: How confident are you that you can keep the emotional distress caused by your disease from interfering with the things you want to do? Select Number: 6 Other Symptoms or Health Problems: How confident are you that you can keep other symptoms or health problems from interfering with the things you want to do? Select Number: 7 Different Tasks and Activities: How confident are you that you can do the different tasks and activities needed to manage your health condition so as to reduce your need to see a doctor? Select Number: 5 Medication: How confident are you that you can do things other than just taking medication to reduce how much your illness affects your everyday life? Select Number: 9 Total Score:: 6 Nutrition Survey - Nutrition Survey Initial Have you lost >10 lbs over the past 2 months without trying?: No Are you following a special diet at home for diabetes, low fat, or low salt?: Yes Are you interested in meeting with a dietitian for help understanding your diet?: No Do you eat less than 3 meals a day?: No Do you eat fatty meats (khoury, sausage, ribs, etc), fried foods, desserts, large amounts of salad dressings, margarine, butter, or cheese most days?: No Do you have food allergies? [Enter types in comment field]: No Do you eat in restaurants more than 3 times a week?: No Do you season food with salt, seasoning salt, or garlic salt?: No Do you used canned, boxed, frozen meals, or soups, seasoning packets?: No Total Score:: 1
[2022-08-05 10:05] VITALS: BP 127/84; PULSE 60; RESP 14; TEMP 36.8; O2SAT 97; BMI 27.5
[2022-08-05 10:33] VITALS: BP 127/84; BMI 27.5
== END | disposition home or self-care (01) ==
LOC: CR 09:25
PROVIDERS: PCP Internal Medicine; Visit Provider Internal Medicine Cardiovascular Disease
DX: E78.5 Hyperlipidemia, unspecified (principal); E11.9 Type 2 diabetes mellitus without complications; I10 Essential (primary) hypertension

== ENCOUNTER 2022-08-30 09:30 | Outpatient (RCR) | payer MEDICARE, SELFPAY ==
[2022-08-05 10:18] VITALS: BMI 27.5
== END 2022-08-30 23:59 ==
LOC: CR 09:30
PROVIDERS: PCP Internal Medicine; Visit Provider Internal Medicine Cardiovascular Disease
DX: I21.4 Non-ST elevation (NSTEMI) myocardial infarction (principal); Z86.79 Personal history of other diseases of the circulatory system; Z86.39 Personal history of other endocrine, nutritional and metabolic disease; Z95.1 Presence of aortocoronary bypass graft
CPT/HCPCS: 93798

== ENCOUNTER 2022-09-27 09:30 | Outpatient (RCR) | payer MEDICARE, SELFPAY ==
[2022-08-05 10:33] VITALS: BMI 27.5
--- NOTE | 2022-09-04 08:18 | PCM.CR.ITP ---
Diagnosis Exercise - 30-day Assessment - Visit Date of Eval: 09/04/22 Session #:: 12 - Physician Prescribed Exercise Modalities: Treadmill, Airdyne, NuStep Frequency: 3x/week for 12 weeks [36 sessions] Intensity: 60-80% of age predicted maximum heart rate reserve Duration: 30 - 45 minutes Current METSs:: 6.0 Target Heart Rate:: 96-110 Current RPE:: 12-13 Maximum Excercise HR:: 137 Resting Blood Pressure: 122/74 Maximum Exercise Blood Pressure: 162/72 EKG Type: Sinus bradycardia to sinus tach with rare PVC PAC Current Physical Activity or Exercising minutes: 36 - Outcomes & Goals Goals:: Verbalizes understanding of THR, RPE & goal METS by session 6, Documents in home exercise log/reports 30 min aerobic 5 day/wk by DC, Demonstrates accurate pulse taking by DC - Intervention & Plan Exercise Program Goals: Instruct on personal THR & RPE, Instruct on MET level & personal MET goal, Show patient to take own pulse /validate performance until accurate, Instruct on home exercise - 30-day Reassessments 30 day Reassessments:: Met - Physical Activity Home Exercise Physical Activity - Home Exercise: Safe Exercise, Warm-up, Self-monitoring, Cool-Down, Home Exercise > 30 min Daily, Sitting Time <3 hours/daily - Outcomes & Goals Outcomes/Goals: Demonstrates correct Warm-up/exercise Cool-Down (S3) if = 2.5 METs, Verbalizes symptoms of exercise intolerance by Session 3 (S3), Demonstrate safe equipment use (S3) & follows exercise prescrition (6), Other: See below - Intervention & Plan Plan/Intervention: Instruct warm-up & cool-down if exercising at > 2 METs, Instruct on symptoms of exercise intolerance & actions to take, Instruct & monitor on saf, Assess intial functional capacity & safety risk - 30-day Reassessments 30 day Reassessments:: Met Nutrition - Initial Assessment Nutrition - 30-Day Assessment - Program Goals Nutrition Program Goals: LDL <100 optimal. 100 - 129 Near optimal. 130 - 159 Borderline High. 160 - 189 High. Total Cholesterol <200 desirable. 200 - 239 Borderline High. >/= 240 High. HDL < 40 Low >/=60 High. Triglycerides <150 desirable. <199 optimal. VlDL 5 - 40. HgbA1C <7%. BMI <25 Patient has diagnosis of Hyperlipidemia (ICD E78)?: Yes - Visit Date of Assessment:: 09/04/22 Session #:: 12 - Cholesterol/Lipids (Other Core Measures) Triglycerides (mg/dL): 65 Total Cholesterol (mg/dL): 162 LDL Cholesterol (mg/dL): 87 HDL Cholesterol (mg/dL): 62 Determine presence & major risk factors that modify LDL goal: Hypertension or hypertensive medication, Age men > 45 years; women >/= 55 years Outcomes/Goals: Pt IDs own risk factors & lifestyle modifications by Session 10, Verbalizes symptoms of angina & response by session 3., Pt independently manages Intervention/Plan: Instruct on personal lipid levels & lipid goals/NCEP guidelines, Instruct on cholesterol Referral to dietitian:: Yes - Medical Nutrition Therapy 30-day Reassessments:: Progressing - Diabetes (Other Core Measures) Diabetes Type: Diagnosis Type II ICD-10 E11 Insulin dependent injection/pump?: Yes Non-Insulin Dependent?: Yes Do you monitor your blood sugar at home?: Yes Referral to Diabetic Clinic:: Yes Outcomes/Goals:: Able to state symptoms of, Able to state, Able to state Intervention/Plan:: Instruct on, Refer to, Instruct on 30-day Reassessments:: Progressing - Weight Mgt (Other Care) Not Applicable: Yes Height: 6 ft Weight:: 209 lb 8 oz BMI: 28.4 Diagnosis Overweight/Obesity BMI> 30% ICD-10 E66: No Diagnosis High BMI/Morbid Obesity BMI> 35% ICD-10 Z68: No Outcomes/Goals: Pt sets, maintains & shows weight loss goal & trend during rehab Intervention/Plan: Instruct on ideal BMI & set weight loss goal w/patient, Assist pt to ID & incorporate diet changes for weight loss by S9 30 day Reassessments:: Progressing - Healthy Eating Habits Will attend diet classes:: Yes Outcomes/Goals:: Consume diet rich in vegs,fruits,whole grain/high fiber,fish,lean meat, Limit sat/trans fats,cholesterol & added salts & sugars Intervention/Plan:: Assess current eating habits 30-day Reassessments:: Progressing - Education Gave educational materials for:: Signs & symptoms of hypoglycemia, Signs & symptoms of hyperglycemia, Relate diabetes to coronary artery disease, Healthy eating Nutrition - 60-Day Assessment Nutrition - 90-Day Assessment Nutrition - Final Assessment Core - Initial Assessment Core - 30-Day Assessment - Visit Date of Eval: 09/04/22 Session #:: 12 - Medication Compliance Preventative Medication(s):: Aspirin, Statin/lipid, Beta jaime H/O mental health issues: depression, anxiety, or addiction?: No Doesn?t believe in the benefits of treatment?: No Believes medications are unnecessary or harmful?: No Has a concern about medication side effects?: No Expresses concern over the cost of medications?: No Outcomes/Goals: Verbalizes medications,desired effect & common side effects @ DC, Pt self-reports following medication regimen, Keeps card in wallet w/medications listed by DC Interventions/plans: Instruct on medication effects & side effects, Review medication list w/patient every two weeks, Instruct importance of taking meds as ordered & assist problem solving 30-day Reassessments:: Progressing - Tobacco Use Tobacco Use: Non-smoker - Hypertension Hypertension Diagnosis:: Hypertension ICD-10 I10 Resting Blood Pressure:: 122/74 [place] [employer] Hypertension Guidelines: [place] [employer] Hypertension Guidelines. Normal BP Less than 120/80. Elevated BP 120/80. Hypertension Stage 1: BP 130-139/80-89. Hypertesnion Stage 2: BP 140 or higher/90 or higher. Hypertension Crisis: BP higher than 180/120 Peak Exercise Blood Pressure:: 162/72 Outcomes/Goals: Able to verbalize/achieve optimal blood pressure <130/80, Incorporates diet changes & exercise for blood pressure control by DC Interventions/plan: Instruct on optimal blood pressure, hypertension & medications, Instruct on effects of sodium, alcohol, stress, exercise &hypertension 30 day Reassessments:: Progressing - Tobacco Cessation Referral Smoking Cessation Referral:: No Individual Education/Counseling:: No Education Schedule Given:: Yes Core - 60-Day Assessment Core - 90 Day Assessment Core - Final Assessment Psychosocial - Initial Assess Psychosocial - 30-Day Assess - VIsit Date of Eval: 09/04/22 Session #:: 12 Not Applicable: Yes History of previous Mental disease:: No - Psychosocial Test Tool Used:: PHQ-9 Questionnaire phq-9 Severity: Severity. 1-4 Minimal Depression. 5-9 Mild Depression. 10-14 Moderate Depression. 15-19 Moderately Sever Depression. 20-27 Severe Depression. Rule: - Referral to Behavioral Health PS - Interventions: Yes Attend Stress Management Classes, No Referral to Behavioral Health if PHQ-9 score >9:, No Referral to [facility], No Referral to Physician if PHQ-9 if score is 5-9: - Outcomes/Goals: See list Psychosocial Outcomes/Goals:: ID's personal stressors & 2 strategies to manage stress by discharge - Intervention/Plan: See List Interventions/Plan:: Assess stressors,coping strategies & signs of derpression on admission, Instruct/assist pt to develop coping & personal stress Mgt strategies, Instruct patient to recognize signs & symptoms of depression, Instruct patient to recog - 30-day Reassessments: 30 day Reassessments:: Met Psychosocial - 60-Day Assess Psychosocial - 90-Day Assess Psychosocial - Final Assessmen Patient Health Questionnaire 30-Day Re-eval Assessment 1. Little interest or pleasure in doing things: Not at all 2. Feeling down, depressed, or hopeless: Not at all 3. Trouble falling or staying asleep, or sleeping too much: Several days 4. Feeling tired or having little energy: Not at all 5. Poor appetite or overeating: Not at all 6. Feeling bad about yourself -- or that you are a failure or have let yourself or your family down: Not at all 7. Trouble concentrating on things, such as reading the newspaper or watching television: Not at all 8. Moving or speaking so slowly that other people could have noticed. Or the opposite - being so fidgety or restless that you have been moving around a lot more than usual: Not at all 9. Thoughts that you would be better off , or of hurting yourself in some way: Not at all Total Score: 1 Self-Efficacy 30-Day Re-eval Assessment We would like to know how confident you are in doing certain activities. Please select your confidence level for:: Select your confidence level for the following using the scale 1-10 where 1 is not at all confident and 10 is totally confident. Your score is the average of all 6 responses. Fatigue: How confident are you that you can keep the fatigue caused by your disease from interfering with the things you want to do? Select Number: 8 Physical Discomfort or Pain: How confident are you that you can keep the physical discomfort or pain of your disease from interfering with the things you want to do? Select Number: 8 Emotional Distress: How confident are you that you can keep the emotional distress caused by your disease from interfering with the things you want to do? Select Number: 8 Other Symptoms or Health Problems: How confident are you that you can keep other symptoms or health problems from interfering with the things you want to do? Select Number: 8 Different Tasks and Activities: How confident are you that you can do the different tasks and activities needed to manage your health condition so as to reduce your need to see a doctor? Select Number: 7 Medication: How confident are you that you can do things other than just taking medication to reduce how much your illness affects your everyday life? Select Number: 10 Total Score:: 8 Nutrition Survey
[2022-09-04 08:28] VITALS: BP 122/74; BP 162/72; BMI 28.4
== END 2022-09-29 23:59 ==
LOC: CR 09:30
PROVIDERS: PCP Internal Medicine; Visit Provider Internal Medicine Cardiovascular Disease
DX: I21.4 Non-ST elevation (NSTEMI) myocardial infarction (principal); Z86.79 Personal history of other diseases of the circulatory system; Z86.39 Personal history of other endocrine, nutritional and metabolic disease; Z95.1 Presence of aortocoronary bypass graft
CPT/HCPCS: 93798

== ENCOUNTER 2022-10-30 09:15 | Outpatient (RCR) | payer MEDICARE, SELFPAY ==
[2022-09-04 08:28] VITALS: BMI 28.4
[2022-09-30 00:43] VITALS: BP 122/74; BP 162/72
--- NOTE | 2022-10-04 10:18 | CR.ITP_ITS ---
Diagnosis Exercise - 60-day Assessment - Visit Date of Eval: 10/04/22 Session #:: 25 - Physician Prescribed Exercise Modalities: Treadmill, Rower, Airdyne, NuStep, SciFit, Lateral [place] Frequency: 2x/week for 18 weeks [36 sessions], 3x/week for 12 weeks [36 sessions] Intensity: 60-80% of age predicted maximum heart rate reserve Current METSs:: 7 Target Heart Rate:: 110-125 Current RPE:: 12-13 Maximum Excercise HR:: 129 Resting Blood Pressure: 120/68 Maximum Exercise Blood Pressure: 160/84 - Outcomes & Goals Goals:: Verbalizes understanding of THR, RPE & goal METS by session 6, Documents in home exercise log/reports 30 min aerobic 5 day/wk by DC, Demonstrates accurate pulse taking by DC, Other additional outcome/goals: see below - Intervention & Plan Exercise Program Goals: Instruct on personal THR & RPE, Instruct on MET level & personal MET goal, Show patient to take own pulse /validate performance until accurate, Instruct on home exercise, Other additional plan/int - 30-day Reassessments 30 day Reassessments:: Met - Physical Activity Home Exercise Physical Activity - Home Exercise: Safe Exercise, Warm-up, Self-monitoring, Cool-Down, Home Exercise > 30 min Daily, Sitting Time <3 hours/daily - Outcomes & Goals Outcomes/Goals: Demonstrates correct Warm-up/exercise Cool-Down (S3) if = 2.5 METs, Verbalizes symptoms of exercise intolerance by Session 3 (S3), Demonstrate safe equipment use (S3) & follows exercise prescrition (6), Other: See below - Intervention & Plan Plan/Intervention: Instruct warm-up & cool-down if exercising at > 2 METs, Instruct on symptoms of exercise intolerance & actions to take, Instruct & monitor on saf, Assess intial functional capacity & safety risk, Other See below - 30-day Reassessments 30 day Reassessments:: Met Nutrition - Initial Assessment Nutrition - 30-Day Assessment Nutrition - 60-Day Assessment - Program Goals Nutrition Program Goals: LDL <100 optimal. 100 - 129 Near optimal. 130 - 159 Borderline High. 160 - 189 High. Total Cholesterol <200 desirable. 200 - 239 Borderline High. >/= 240 High. HDL < 40 Low >/=60 High. Triglycerides <150 desirable. <199 optimal. VlDL 5 - 40. HgbA1C <7%. BMI <25 Patient has diagnosis of Hyperlipidemia (ICD E78)?: Yes - Visit Date of Assessment:: 10/04/22 Session #:: 20 - Cholesterol/Lipids (Other Core Measures) Determine presence & major risk factors that modify LDL goal: Hypertension or hypertensive medication, Low HDL cholesterol <40 mg/dL*, Family history of premature CHD in Male < 55 years: female <65 yearsFa, Age men > 45 years; women >/= 55 years Outcomes/Goals: Pt IDs own risk factors & lifestyle modifications by Session 10, Verbalizes symptoms of angina & response by session 3., Pt independently manages, Other Additional Outcomes/Goals: Intervention/Plan: Advocate for lipid panel cholesterol medication if applicable, Instruct on personal lipid levels & lipid goals/NCEP guidelines, Instruct on cholesterol, Other additional plan/int 30-day Reassessments:: Met - Diabetes (Other Core Measures) Diabetes Type: Diagnosis Type II ICD-10 E11 Insulin dependent injection/pump?: Yes Non-Insulin Dependent?: Yes Do you monitor your blood sugar at home?: Yes Referral to Diabetic Clinic:: Yes Outcomes/Goals:: Able to state symptoms of, Able to state, Able to state, Other additional Intervention/Plan:: Instruct on, Refer to, Instruct on, Other 30-day Reassessments:: Met - Weight Mgt (Other Care) Height: 6 ft Weight:: 94.347 kg BMI: 28.2 Diagnosis Overweight/Obesity BMI> 30% ICD-10 E66: No Diagnosis High BMI/Morbid Obesity BMI> 35% ICD-10 Z68: No Outcomes/Goals: Pt sets, maintains & shows weight loss goal & trend during rehab, Other additional outcomes/goals Intervention/Plan: Instruct on ideal BMI & set weight loss goal w/patient, Assist pt to ID & incorporate diet changes for weight loss by S9, Refer to Structured Weight Loss program as appropriate, Encourage goal of using 250- 300dcal per session for weight loss, Other additional plan/interventions 30 day Reassessments:: Met - Healthy Eating Habits Will attend diet classes:: Yes Outcomes/Goals:: Consume diet rich in vegs,fruits,whole grain/high fiber,fish,lean meat, Limit sat/trans fats,cholesterol & added salts & sugars, Other additional outcome/goals: Intervention/Plan:: Assess current eating habits, Other Additional plan/interventions 30-day Reassessments:: Met - Education Gave educational materials for:: Signs & symptoms of hypoglycemia, Signs & symptoms of hyperglycemia, Relate diabetes to coronary artery disease, Healthy eating Nutrition - 90-Day Assessment Nutrition - Final Assessment Core - Initial Assessment Core - 30-Day Assessment Core - 60-Day Assessment - Visit Date of Eval: 10/04/22 Session #:: 25 - Medication Compliance Preventative Medication(s):: Aspirin, Statin/lipid, Beta jamie H/O mental health issues: depression, anxiety, or addiction?: No Doesn?t believe in the benefits of treatment?: No Believes medications are unnecessary or harmful?: No Has a concern about medication side effects?: No Expresses concern over the cost of medications?: No Outcomes/Goals: Verbalizes medications,desired effect & common side effects @ DC, Pt self-reports following medication regimen, Keeps card in wallet w/medications listed by DC, Other additional outcome/goals: 30-day Reassessments:: Met - Tobacco Use Tobacco Use: Non-smoker - Hypertension Hypertension Diagnosis:: Hypertension ICD-10 I10 Resting Blood Pressure:: 120/68 [place] [employer] Hypertension Guidelines: [place] [employer] Hypertension Guidelines. Normal BP Less than 120/80. Elevated BP 120/80. Hypertension Stage 1: BP 130-139/80-89. Hypertesnion Stage 2: BP 140 or higher/90 or higher. Hypertension Crisis: BP higher than 180/120 Peak Exercise Blood Pressure:: 160/84 Outcomes/Goals: Able to verbalize/achieve optimal blood pressure <130/80, Incorporates diet changes & exercise for blood pressure control by DC, Other additional outcomes/goals Interventions/plan: Instruct on optimal blood pressure, hypertension & medicatio ns, Instruct on effects of sodium, alcohol, stress, exercise &hypertension, Other additional plan/interventions 30 day Reassessments:: Met - Tobacco Cessation Referral Smoking Cessation Referral:: No Individual Education/Counseling:: No Education Schedule Given:: Yes Core - 90 Day Assessment Core - Final Assessment Psychosocial - Initial Assess Psychosocial - 30-Day Assess Psychosocial - 60-Day Assess - VIsit Date of Eval: 10/04/22 History of previous Mental disease:: No - 30-day Reassessments: 30 day Reassessments:: Met Psychosocial - 90-Day Assess Psychosocial - Final Assessmen Patient Health Questionnaire 60-Day Re-eval Assessment 1. Little interest or pleasure in doing things: Not at all 2. Feeling down, depressed, or hopeless: Not at all 3. Trouble falling or staying asleep, or sleeping too much: Several days 4. Feeling tired or having little energy: Not at all 5. Poor appetite or overeating: Not at all 6. Feeling bad about yourself -- or that you are a failure or have let yourself or your family down: Not at all 7. Trouble concentrating on things, such as reading the newspaper or watching television: Not at all 8. Moving or speaking so slowly that other people could have noticed. Or the opposite - being so fidgety or restless that you have been moving around a lot more than usual: Not at all 9. Thoughts that you would be better off , or of hurting yourself in some way: Not at all How difficult have these problems made it for you to do your work, take care of things at home, or get along with other people?: Not difficult at all Total Score: 1 Self-Efficacy 60-Day Re-eval Assessment We would like to know how confident you are in doing certain activities. Please select your confidence level for:: Select your confidence level for the following using the scale 1-10 where 1 is not at all confident and 10 is totally confident. Your score is the average of all 6 responses. Fatigue: How confident are you that you can keep the fatigue caused by your disease from interfering with the things you want to do? Select Number: 8 Physical Discomfort or Pain: How confident are you that you can keep the physical discomfort or pain of your disease from interfering with the things you want to do? Select Number: 8 Emotional Distress: How confident are you that you can keep the emotional distress caused by your disease from interfering with the things you want to do? Select Number: 8 Other Symptoms or Health Problems: How confident are you that you can keep other symptoms or health problems from interfering with the things you want to do? Select Number: 8 Different Tasks and Activities: How confident are you that you can do the different tasks and activities needed to manage your health condition so as to reduce your need to see a doctor? Select Number: 7 Medication: How confident are you that you can do things other than just taking medication to reduce how much your illness affects your everyday life? Select Number: 10 Total Score:: 8 Nutrition Survey
[2022-10-04 10:25] VITALS: BP 120/68; BP 160/84; BMI 28.2
== END 2022-10-30 23:59 ==
LOC: CR 09:15
PROVIDERS: PCP Internal Medicine; Referring Provider Internal Medicine Cardiovascular Disease; Visit Provider Internal Medicine Cardiovascular Disease
DX: I21.4 Non-ST elevation (NSTEMI) myocardial infarction (principal); Z86.79 Personal history of other diseases of the circulatory system; Z86.39 Personal history of other endocrine, nutritional and metabolic disease; Z95.1 Presence of aortocoronary bypass graft; R07.9 Chest pain, unspecified
CPT/HCPCS: 93798

== ENCOUNTER 2022-11-18 09:30 | Outpatient (RCR) | payer MEDICARE, SELFPAY ==
[2022-10-04 10:25] VITALS: BMI 28.2
[2022-10-31 00:35] VITALS: BP 120/68; BP 160/84
--- NOTE | 2022-11-04 10:51 | CR.ITP_ITS ---
Diagnosis Exercise - 90-day Assessment - Visit Date of Eval: 11/04/22 Session #:: 33 - Physician Prescribed Exercise Modalities: Treadmill, Airdyne, NuStep Frequency: 3x/week for 12 weeks [36 sessions] Intensity: 60-80% of age predicted maximum heart rate reserve Current METSs:: 7 Target Heart Rate:: 110-125 Current RPE:: 12 Maximum Excercise HR:: 129 Resting Blood Pressure: 108/56 Maximum Exercise Blood Pressure: 148/82 EKG Type: NSR to ST with rare PVC. Rare vent quadrigeminy. - Outcomes & Goals Goals:: Verbalizes understanding of THR, RPE & goal METS by session 6, Documents in home exercise log/reports 30 min aerobic 5 day/wk by DC, Demonstrates accurate pulse taking by DC, Other additional outcome/goals: see below - Intervention & Plan Exercise Program Goals: Instruct on personal THR & RPE, Instruct on MET level & personal MET goal, Show patient to take own pulse /validate performance until accurate, Instruct on home exercise, Other additional plan/int - 30-day Reassessments 30 day Reassessments:: Met - Physical Activity Home Exercise Physical Activity - Home Exercise: Safe Exercise, Warm-up, Self-monitoring, Cool-Down, Home Exercise > 30 min Daily, Sitting Time <3 hours/daily - Outcomes & Goals Outcomes/Goals: Demonstrates correct Warm-up/exercise Cool-Down (S3) if = 2.5 METs, Verbalizes symptoms of exercise intolerance by Session 3 (S3), Demonstrate safe equipment use (S3) & follows exercise prescrition (6), Other: See below - Intervention & Plan Plan/Intervention: Instruct warm-up & cool-down if exercising at > 2 METs, Instruct on symptoms of exercise intolerance & actions to take, Instruct & monitor on saf, Assess intial functional capacity & safety risk, Other See below - 30-day Reassessments 30 day Reassessments:: Met Nutrition - Initial Assessment Nutrition - 30-Day Assessment Nutrition - 60-Day Assessment Nutrition - 90-Day Assessment - Program Goals Nutrition Program Goals: LDL <100 optimal. 100 - 129 Near optimal. 130 - 159 Borderline High. 160 - 189 High. Total Cholesterol <200 desirable. 200 - 239 Borderline High. >/= 240 High. HDL < 40 Low >/=60 High. Triglycerides <150 desirable. <199 optimal. VlDL 5 - 40. HgbA1C <7%. BMI <25 Patient has diagnosis of Hyperlipidemia (ICD E78)?: Yes - Visit Date of Assessment:: 11/04/22 Session #:: 33 - Cholesterol/Lipids (Other Core Measures) Determine presence & major risk factors that modify LDL goal: Hypertension or hypertensive medication, Low HDL cholesterol <40 mg/dL*, Family history of premature CHD in Male < 55 years: female <65 yearsFa, Age men > 45 years; women >/= 55 years Outcomes/Goals: Pt IDs own risk factors & lifestyle modifications by Session 10, Verbalizes symptoms of angina & response by session 3., Pt independently manages, Other Additional Outcomes/Goals: Intervention/Plan: Advocate for lipid panel cholesterol medication if applicable, Instruct on personal lipid levels & lipid goals/NCEP guidelines, Instruct on cholesterol, Other additional plan/int 30-day Reassessments:: Met - Diabetes (Other Core Measures) Diabetes Type: Diagnosis Type I ICD-10 E10 Insulin dependent injection/pump?: Yes Non-Insulin Dependent?: Yes Do you monitor your blood sugar at home?: Yes Referral to Diabetic Clinic:: Yes Outcomes/Goals:: Able to state symptoms of, Able to state, Able to state, Other additional Intervention/Plan:: Instruct on, Refer to, Instruct on, Other 30-day Reassessments:: Met - Weight Mgt (Other Care) Height: 6 ft Weight:: 93.213 kg BMI: 27.8 Diagnosis Overweight/Obesity BMI> 30% ICD-10 E66: No Diagnosis High BMI/Morbid Obesity BMI> 35% ICD-10 Z68: No Outcomes/Goals: Pt sets, maintains & shows weight loss goal & trend during rehab, Other additional outcomes/goals Intervention/Plan: Instruct on ideal BMI & set weight loss goal w/patient, Assist pt to ID & incorporate diet changes for weight loss by S9, Refer to Structured Weight Loss program as appropriate, Encourage goal of using 250- 300dcal per session for weight loss, Other additional plan/interventions 30 day Reassessments:: Met - Healthy Eating Habits Will attend diet classes:: Yes Outcomes/Goals:: Consume diet rich in vegs,fruits,whole grain/high fiber,fish,lean meat, Limit sat/trans fats,cholesterol & added salts & sugars, Other additional outcome/goals: Intervention/Plan:: Assess current eating habits, Other Additional plan/interventions 30-day Reassessments:: Met - Education Gave educational materials for:: Signs & symptoms of hypoglycemia, Signs & symptoms of hyperglycemia, Relate diabetes to coronary artery disease, Healthy eating Nutrition - Final Assessment Core - Initial Assessment Core - 30-Day Assessment Core - 60-Day Assessment Core - 90 Day Assessment - Visit Date of Eval: 11/04/22 Session #:: 33 - Medication Compliance Preventative Medication(s):: Aspirin, Statin/lipid, Beta jamie H/O mental health issues: depression, anxiety, or addiction?: No Doesn?t believe in the benefits of treatment?: No Believes medications are unnecessary or harmful?: No Has a concern about medication side effects?: No Expresses concern over the cost of medications?: No Outcomes/Goals: Verbalizes medications,desired effect & common side effects @ DC, Pt self-reports following medication regimen, Keeps card in wallet w/medications listed by DC, Other additional outcome/goals: Interventions/plans: Instruct on medication effects & side effects, Review medication list w/patient every two weeks, Instruct importance of taking meds as ordered & assist problem solving, Other additional 30-day Reassessments:: Met - Tobacco Use Tobacco Use: Non-smoker - Hypertension Resting Blood Pressure:: 108/56 [place] [employer] Hypertension Guidelines: [place] [employer] Hypertension Guidelines. Normal BP Less than 120/80. Elevated BP 120/80. Hypertension Stage 1: BP 130-139/80-89. Hypertesnion Stage 2: BP 140 or higher/90 or higher. Hypertension Crisis: BP higher than 180/120 Peak Exercise Blood Pressure:: 148/82 Outcomes/Goals: Able to verbalize/achieve optimal blood pressure <130/80, Incorporates diet changes & exercise for blood pressure control by DC, Other additional outcomes/goals Interventions/plan: Instruct on optimal blood pressure, hypertension & medications, Instruct on effects of sodium, alcohol, stress, exercise &hypertension, Other additional plan/interventions 30 day Reassessments:: Met - Tobacco Cessation Referral Smoking Cessation Referral:: No Individual Education/Counseling:: No Education Schedule Given:: Yes Core - Final Assessment Psychosocial - Initial Assess Psychosocial - 30-Day Assess Psychosocial - 60-Day Assess Psychosocial - 90-Day Assess - VIsit Date of Eval: 11/04/22 Session #:: 33 History of previous Mental disease:: No - 30-day Reassessments: 30 day Reassessments:: Met Psychosocial - Final Assessmen Patient Health Questionnaire 90-Day Re-eval Assessment 1. Little interest or pleasure in doing things: Not at all 3. Trouble falling or staying asleep, or sleeping too much: Several days 4. Feeling tired or having little energy: Not at all 5. Poor appetite or overeating: Not at all 6. Feeling bad about yourself -- or that you are a failure or have let yourself or your family down: Not at all 7. Trouble concentrating on things, such as reading the newspaper or watching television: Not at all 8. Moving or speaking so slowly that other people could have noticed. Or the opposite - being so fidgety or restless that you have been moving around a lot more than usual: Not at all 9. Thoughts that you would be better off , or of hurting yourself in some way: Not at all How difficult have these problems made it for you to do your work, take care of things at home, or get along with other people?: Not difficult at all Total Score: 1 Self-Efficacy 90-Day Re-eval Assessment We would like to know how confident you are in doing certain activities. Please select your confidence level for:: Select your confidence level for the following using the scale 1-10 where 1 is not at all confident and 10 is totally confident. Your score is the average of all 6 responses. Fatigue: How confident are you that you can keep the fatigue caused by your disease from interfering with the things you want to do? Select Number: 8 Physical Discomfort or Pain: How confident are you that you can keep the physical discomfort or pain of your disease from interfering with the things you want to do? Select Number: 8 Emotional Distress: How confident are you that you can keep the emotional distress caused by your disease from interfering with the things you want to do? Select Number: 8 Other Symptoms or Health Problems: How confident are you that you can keep other symptoms or health problems from interfering with the things you want to do? Select Number: 8 Different Tasks and Activities: How confident are you that you can do the different tasks and activities needed to manage your health condition so as to reduce your need to see a doctor? Select Number: 7 Medication: How confident are you that you can do things other than just taking medication to reduce how much your illness affects your everyday life? Select Number: 10 Total Score:: 8 Nutrition Survey
[2022-11-04 11:00] VITALS: BP 108/56; BP 148/82; BMI 27.8
== END 2022-11-29 23:59 ==
LOC: CR 09:30
PROVIDERS: PCP Internal Medicine; Referring Provider Internal Medicine Cardiovascular Disease; Visit Provider Internal Medicine Cardiovascular Disease
DX: I21.4 Non-ST elevation (NSTEMI) myocardial infarction (principal); Z86.79 Personal history of other diseases of the circulatory system; Z86.39 Personal history of other endocrine, nutritional and metabolic disease; Z95.1 Presence of aortocoronary bypass graft
CPT/HCPCS: 93798

== ENCOUNTER → 2023-07-04 | Outpatient (CLI) | payer MEDICARE, SELFPAY ==
[2022-11-04 11:00] VITALS: BMI 27.8
[2023-07-04 11:08] LABS: BNP,B-Type NATRIURETIC PEPTIDE 209.9 pg/mL (0-100)
[2023-07-04 11:17] LABS: AST(SGOT) 27 U/L (15-37); Alanine Aminotransfer ALT/SGPT 27 U/L (16-61); Albumin, Serum 3.4 g/dL (3.2-5.0); Alkaline Phosphatase 53 U/L (45-117); Anion Gap 1 (5-15); BUN 14 mg/dL (7-18); Bilirubin, Direct 0.19 mg/dL (0.00-0.30); Calcium,Total 8.9 mg/dL (8.5-10.1); Chloride 108 mmol/L (98-107); Cholesterol 111 mg/dL (200); Creatinine, Serum 1.08 mg/dL (0.70-1.30); EST Glomerular Filtration Rate 71 mL/min (>60); Est Glom Filt Rate - Afr Amer 86 mL/min (>60); Globulin 3.6 g/dL (2.2-4.2); Glucose 141 mg/dL (74-106); High Density Lipoprotein 49 mg/dL; Potassium 4.1 mmol/L (3.5-5.1); Sodium Level 138 mmol/L (136-145); Triglycerides 85 mg/dL; Very Low Density Lipoprotein 17 mg/dL (5-40)
== END | disposition home or self-care (01) ==
LOC: LAB 10:09
PROVIDERS: PCP Internal Medicine; Referring Provider Nurse Practitioner Gerontology; Visit Provider Nurse Practitioner Gerontology
DX: I21.4 Non-ST elevation (NSTEMI) myocardial infarction (principal); E78.5 Hyperlipidemia, unspecified; R60.0 Localized edema
CPT/HCPCS: 36415; 80048; 80061; 80076; 83880

== ENCOUNTER 2023-09-15 14:15 | Inpatient (IN) | payer MEDICARE, SELFPAY ==
[2022-11-04 11:00] VITALS: BMI 27.8
[2023-09-15] VITALS (13 sets, daily range): BP systolic 118–149; BP diastolic 54–104; PULSE 53–88; RESP 14–19; TEMP 35.9–36.7; O2SAT 97–100; BMI 28.4; BMI 28.8
--- NOTE | 2023-09-15 14:36 | EX.ED.DYSGE1 ---
HPI History of Present Illness Chief Complaint: Abn Labs Detail of Chief Complaint: Generalized weakness, dizziness, low hemoglobin Informant: patient Narrative Narrative: Patient presents to the emergency department complaint of not feeling well for 2 to 3 weeks. Patient states has been feeling weak and dizzy and no energy. 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 They ordered blood work which she had done this morning. He was called and told that his hemoglobin was low and to come in and get evaluated. Patient denies any blood in his stool or black tarry stool. Patient denies any blood in his urine. He is never required blood transfusions before. Prior similar symptoms: No PFSH PFS Medical History (Updated 09/15/23 @ 15:[address] Raaf Edmonds, DO) Anxiety Asthma Atherosclerosis of coronary artery of [place] heart without angina pectoris Diabetes Dyspnea on exertion Essential (primary) hypertension Hyperlipidemia NAYE (obstructive sleep apnea) Home Medications metformin 500 mg tablet,extended release 24 hr 500 mg PO DAILY 06/08/22 [History Last Taken Unknown] mometasone-formoterol HFA 200 mcg-5 mcg/actuation aerosol inhaler (Dulera) 2 puff inhalation BID 06/08/22 [History Last Taken Unknown] venlafaxine 75 mg tablet 75 mg PO DAILY 06/08/22 [History Last Taken Unknown] aspirin 81 mg tablet,delayed release 81 mg PO BREAKFAST #0 tabs 06/10/22 [Rx Last Taken Unknown] multivitamin 1 tab PO DAILY 07/03/22 [History Last Taken Unknown] omeprazole 20 mg capsule,delayed release 20 mg PO DAILY 07/03/22 [History Last Taken Unknown] ibuprofen 200 mg capsule 200 mg PO Q6H PRN pain 07/04/22 [History Last Taken Unknown] metoprolol tartrate 25 mg tablet 25 mg PO BID #180 tabs 08/14/22 [Rx Last Taken Unknown] rosuvastatin 40 mg tablet 40 mg PO DAILY #90 tabs 09/10/22 [Rx Last Taken Unknown] acetaminophen 500 mg tablet (Tylenol Extra Strength) 1,000 mg PO BID PRN pain 11/05/22 [History Last Taken Unknown] Allergy/AdvReac Type Severity Reaction Status Date / Time cat dander Allergy Other Verified 09/15/23 14:16 Family History Brother Myocardial infarction, Onset Age: 39 CAD (coronary artery disease) Father CAD (coronary artery disease) Other Heart disease Surgical History History of coronary artery bypass graft x 3 (~06/12/22) History of herniorrhaphy History of tonsillectomy Hx of left heart catheterization by ventricular puncture (~06/10/22) Social History household members: none housing: apartment current occupational status: employed Smoking Status: Never smoker substance use type: does not use caffeine: Yes Type: carbonated beverages Number of servings: 2 and other ROS ROS ED ROS Narrative Anemia Review of Systems ROS Unobtainable: other Constitutional Constitutional ED: Reports lethargy; Denies chills, fever(s), sweats or weight loss Eyes Eyes: Denies blurry vision, change in vision or diplopia ENT ENT ED: Denies rhinorrhea or sore throat Cardiovascular Cardiovascular: Denies chest pain, orthopnea or racing heartbeat Respiratory/Chest Respiratory/Chest: Denies cough, dyspnea, dyspnea on exertion, orthopnea or sputum Gastrointestinal Gastrointestinal: Denies abdominal pain, diarrhea, nausea or vomiting Genitourinary Genitourinary ED: Denies dysuria, hematuria or urinary frequency Musculoskeletal Musculoskeletal: Denies arthralgias, back pain, myalgias or neck pain Integumentary Denies abscess, Abrasions or rash Neurologic Neurologic: Reports weakness; Denies headache(s) Psychiatric Psychiatric: Denies anxiety, depression or suicidal thoughts Endocrine Endocrinology: Denies polydipsia, polyphagia or polyuria Hematologic/Lymphatic Hematologic/Lymphatic: Denies easy bleeding, easy bruising or lymphadenopathy Allergic/Immunologic Allergic/Immunologic ED: Denies mouth swelling, tongue swelling or urticaria EXAM Physical Exam Const Vital Signs: 09/15/23 14:16 09/15/23 15:08 Temperature 96.6 F L Temperature Source Temporal Pulse Rate 88 Respiratory Rate 18 Respiratory Effort Normal Respiratory Pattern Normal Blood Pressure 138/104 H Blood Pressure Mean 115 Pulse Ox 100 Oxygen Delivery Method Room Air Positive well nourished and well developed General Appearance ED: well developed and NAD HEENT Reports TM's clear and moist mucous membranes normocephalic and atraumatic; Negative for trauma or tenderness Tympanic Membrane ED: Yes TM's clear Eyes PERRL and EOMs intact bilaterally General Eye ED: Yes pale conjunctiva; Negative for scleral icterus Neck no lymphadenopathy, supple and no JVD General: Negative for tenderness Chest Wall inspection of chest normal and palpation of chest normal Chest: Negative for tenderness Resp normal respiratory effort and clear to auscultation bilaterally Effort and Inspection: Negative for respiratory distress or pain with movement Auscultation: Negative for rhonchi, wheezes or diminished lung sounds Cardio regular rate, regular rhythm, S1 normal heart sound, S2 normal heart sound and no murmurs Peripheral Pulses: pulses 2+ throughout GI normal to inspection, nondistended, normoactive bowel sounds, soft to palpation, non-tender, non-distended and no masses GI Narrative: Rectal exam performed. No masses in the rectal vault. There was brown stool. Hemoccult sent. Back/Spine no CVA tenderness and no thoracic nor lumbar tenderness Extremity normal to inspection General Extremety ED: Negative for edema General Extremity: Negative for edema Neuro oriented x3, CN's II-XII intact bilaterally, no sensory deficits noted and gait normal Sensorium / Orientation: awake, alert, oriented to person, oriented to place and oriented to time Motor Exam: strength 5/5 throughout and strength abnormal Psych mental status grossly normal Skin no rashes or lesions noted and no wounds MDM MDM MDM Narrative Medical decision making narrative: Patient presents with generalized weakness and dizziness. Patient had blood work today that showed anemia. Hemoglobin was 5.8. I ordered basic labs as well as a type and cross for 2 units packed red cells. Hemoccult pending. Hemoccult did return negative. Chemistries showed a sodium 141 potassium 4.0. BUN 21 creatinine 1.55. Case discussed with hospitalist will evaluate patient for admission for symptomatic anemia. Anemia is microcytic. Lab Data Attestation: I reviewed the patient's lab results. Labs: Laboratory Results - last 24 hr 09/15/23 09/15/23 14:52 15:00 Sodium 140 Potassium 4.0 Chloride 109 H Carbon Dioxide 28.0 Anion Gap 3 L BUN 21 H Creatinine 1.55 H Estim Creat Clear Calc 50.03 Est GFR (MDRD) Af Amer 57 L Est GFR (MDRD) Non-Af 47 L BUN/Creatinine Ratio 13.5 Glucose 143 H Calcium 9.2 Crossmatch See Detail Discharge Plan Triage Chief Complaint: Abn Labs ED Provider: Rafa Edmonds Dx/Rx/DC Orders Clinical Impression: History of hypertension, History of coronary artery disease, Symptomatic anemia Prescriptions: No Action multivitamin Tablet 1 tab PO DAILY omeprazole 20 mg capsule,delayed release(DR/EC) 20 mg PO DAILY ibuprofen 200 mg capsule 200 mg PO Q6H PRN (Reason: pain) acetaminophen [Tylenol Extra Strength] 500 mg tablet 1,000 mg PO BID PRN (Reason: pain) venlafaxine 75 mg Tablet 75 mg PO DAILY metformin 500 mg Tablet Extended Release 24 Hr 500 mg PO DAILY Hold Instructions: Resume on 06/19/22. Dulera 200-5 mcg/actuation Hfa Aerosol Inhaler 2 puff INHALATION BID aspirin 81 mg Tablet,Delayed Release (Dr/Ec) 81 mg PO BREAKFAST Qty: 0 0RF metoprolol tartrate 25 mg tablet 25 mg PO BID Qty: 180 3RF rosuvastatin 40 mg tablet 40 mg PO DAILY Qty: 90 3RF Primary Care Provider: Daniel Lara Referrals: Daniel Lara MD [Primary Care Provider] - Disposition Disposition: Acute Care Hospital [facility]
[2023-09-15] MEDS: 0.9% Normal Saline (1000mL) 1,000 ML 150 ML IV (15:04)
--- NOTE | 2023-09-15 15:14 | PCM.HP.STD ---
HPI - General General Date of Admission: 09/15/23 Date of Service: 09/15/23 Chief Complaint: Dyspnea, lightheadedness, dizziness. HPI Narrative The patient is a 73 y/o M w/ PMHx: Overweight, CAD s/p CABG x 3, CKD stage II prior noted per GFT trending, HTN, HLD, COPD/Asthma, Anxiety and Depression, GERD, Chronic BL LE edema, NAYE on CPAP who presents to the [facility] ED on 09/15/23 with history of 3 weeks of increasing fatigue, malaise, lightheadedness and dizziness especially with any exertion attempts with outpatient evaluation with labs obtained with notable anemia prompting PCP referral to ED for evaluation. Patient denies any recent blood in his urine or stools and no hematemesis or hemoptysis. He only takes a baby aspirin daily. He notes that his stools have looked normal. He denies any abdominal cramping or pain. He notes he has been tolerating diet without issue. Workup in the ED included T96.6, heart rate 88, BP 138/104, respiratory rate 18, 100% on room air, CBC obtained earlier in the day prior to ED presentation with noted WBC 5.3, hemoglobin 5.8, MCV 65.5, platelet 241 without marked shift, BMP in the ED with sodium 140, potassium 4.0, chloride 109, BUN/creatinine 21/1.55, GFR 47, glucose 143, type and cross initiated per ED physician with 2 units ordered for administration. [facility] Medical History (Updated 09/15/23 @ 17:[address] Elham Ansari MD) Anxiety and depression Asthma Atherosclerosis of coronary artery of [place] heart without angina pectoris Bilateral lower extremity edema COPD (chronic obstructive pulmonary disease) Diabetes Essential (primary) hypertension GERD (gastroesophageal reflux disease) Hyperlipidemia Non-smoker NAYE (obstructive sleep apnea) Home Medications metformin 500 mg tablet,extended release 24 hr 500 mg PO DAILY 06/08/22 [History Last Taken Unknown] mometasone-formoterol HFA 200 mcg-5 mcg/actuation aerosol inhaler (Dulera) 2 puff inhalation BID 06/08/22 [History Last Taken Unknown] venlafaxine 75 mg tablet 75 mg PO DAILY 06/08/22 [History Last Taken Unknown] aspirin 81 mg tablet,delayed release 81 mg PO BREAKFAST #0 tabs 06/10/22 [Rx Last Taken Unknown] multivitamin 1 tab PO DAILY 07/03/22 [History Last Taken Unknown] omeprazole 20 mg capsule,delayed release 20 mg PO DAILY 07/03/22 [History Last Taken Unknown] ibuprofen 200 mg capsule 200 mg PO Q6H PRN pain 07/04/22 [History Last Taken Unknown] metoprolol tartrate 25 mg tablet 25 mg PO BID #180 tabs 08/14/22 [Rx Last Taken Unknown] rosuvastatin 40 mg tablet 40 mg PO DAILY #90 tabs 09/10/22 [Rx Last Taken Unknown] acetaminophen 500 mg tablet (Tylenol Extra Strength) 1,000 mg PO BID PRN pain 11/05/22 [History Last Taken Unknown] Allergy/AdvReac Type Severity Reaction Status Date / Time cat dander Allergy Other Verified 09/15/23 14:16 Family History Brother Myocardial infarction, Onset Age: 39 CAD (coronary artery disease) Hypertension Heart disease Father CAD (coronary artery disease) Heart disease Hypertension Myocardial infarction Mother Diabetes Surgical History History of coronary artery bypass graft x 3 (~06/12/22) History of herniorrhaphy History of tonsillectomy Hx of CABG Hx of left heart catheterization by ventricular puncture (~06/10/22) Social History household members: none housing: apartment current occupational status: employed Smoking Status: Never smoker substance use type: does not use caffeine: Yes Type: carbonated beverages Number of servings: 2 and other ROS ROS Narrative Admission Review of Systems: CONSTITUTIONAL: No weight loss, fever, chills, + weakness or fatigue. HEENT: + Lightheadedness, dizziness. Eyes: No visual loss, blurred vision, double vision or yellow sclerae. Ears, Nose, Throat: No hearing loss, sneezing, congestion, runny nose or sore throat. SKIN: No rash or itching, lesions, wounds. CARDIOVASCULAR: + Lightheadedness, dizziness, chronic lower extremity edema. No chest pain, chest pressure or chest discomfort, palpitations, orthopnea, syncopal events. RESPIRATORY: + Dyspnea worse with exertion. No marked cough or sputum, wheezing, hemoptysis. GASTROINTESTINAL: No anorexia, nausea, vomiting or diarrhea, abdominal pain, melena, BRBPR. GENITOURINARY: No dysuria, frequency, urgency or retention. NEUROLOGICAL: + Lightheadedness, dizziness. No headache, syncope, paralysis, ataxia, numbness or tingling in the extremities, focal weakness, change in bowel or bladder control, seizure. MUSCULOSKELETAL: + muscle, back pain, joint pain or stiffness. HEMATOLOGIC: + anemia, no evidence of any bleeding, does have some easy bruising he notes. LYMPHATICS: No enlarged nodes. No history of splenectomy. PSYCHIATRIC: + History of anxiety and depression. ENDOCRINOLOGIC: No reports of sweating, cold or heat intolerance. No polyuria or polydipsia. ALLERGIES: + History of asthma, allergic rhinitis. Vital Signs Vital Signs Vital Signs: 09/15/23 14:16 09/15/23 15:08 Temperature 96.6 F L Temperature Source Temporal Pulse Rate 88 Respiratory Rate 18 Respiratory Effort Normal Respiratory Pattern Normal Blood Pressure 138/104 H Blood Pressure Mean 115 Pulse Ox 100 Oxygen Delivery Method Room Air Weight Weight: 209 lb 9.6 oz Body Mass Index (BMI) 28.4 Physical Exam Narrative Physical Examination: General: Awake, alert, oriented x 3 and cooperative, seated upright in the ED bed, pale appearing, fatigued otherwise no acute distress. Skin: Pale color, normal turgor, no icterus, no cyanosis, occasional staged ecchymoses as well as evidence of bilateral lower extremity venous stasis skin changes. HEENT: AT/NC, EOMI, PERRLA, mildly dry MM, no carotid bruits or JVD noted. Lungs: Mildly diminished, greater bases, proper effort, no rales, ronchi or wheezing. Heart: Mildly bradycardic with regular rhythm; no gallop, rub audible. Abdomen: Soft, overweight, NTTP, ND, mildly hyperactive BS, no appreciated HSM. Extremities: No cyanosis, no clubbing, see skin, notable pedal to upper burch 2+ pitting edema which she reports is chronic. Neurological: Patient awake, alert, oriented as noted, cognitive function intact; pupils equally reactive to light and accommodation, cranial nerves grossly normal, moving all 4 extremities, no focal deficits, strength moderately to severely global decrease secondary to acute presentation. Psychiatric: Affect appears fatigued otherwise normal, no acute evidence of depressive or anxiety feelings but does have underlying history. Results Lab / Micro Data 09/15/23 15:00 Labs: Laboratory Results - last 24 hr 09/15/23 14:52: Crossmatch See Detail Micro: Microbiology 09/15/23 14:45 Stool Stool Occult Blood (ESTEFANIA) - Final Assessment & Plan Assessment/Plan (1) Symptomatic anemia: PLAN: Plan The patient is a 73 y/o M w/ PMHx: Overweight, CAD s/p CABG x 3, CKD stage II prior noted per GFT trending, HTN, HLD, COPD/Asthma, Anxiety and Depression, GERD, Chronic BL LE edema, NAYE on CPAP who presents to the [facility] ED on 09/15/23 with history of 3 weeks of increasing fatigue, malaise, lightheadedness and dizziness especially with any exertion attempts with outpatient evaluation with labs obtained with notable anemia prompting PCP referral to ED for evaluation. #1. Acute symptomatic anemia, unclear etiology: Admission hemoglobin 5.8, no reported history of hematuria/bright red blood per rectum/dark black stools/hematemesis but onset abruptly over the last 3 weeks, guaiac in the ED initially negative, will admit to PCU given level, maintain on IVFs until PRBC initiated with 2 unit ordered per ED physician, will continue to obtain serial H+Hs, repeat guaiac has been requested to be cautious, will temporarily hold baby aspirin but resume immediately once able if no obvious source and hemoglobin stable, will in the interim maintain on IV PPI, allow clears with n.p.o. status at midnight pending trending and response to PRBC. If guaiac is positive or concerns for GI source low threshold to involve gastroenterology. Iron panel, ferritin requested and pending. #2. Acute Renal Insufficiency on Chronic Kidney Disease Stage II versus progressing to CKD stage III unclear subtype: Suspect more likely renal insufficiency secondary to #1, admission BUN/Cr 21/1.55, GFR 47, previously 09/14/2453 but prior to this 07/04/2023 GFR had been 70-80 range, thus suspect more acute insufficiency associated with #1, baseline creatinine noted primarily 0.9-1.1, earlier in the day 09/15/2023 creatinine 1.38, will continue to closely trend. #3. CAD: Status post CABG x 3 (FLORES-LAD,RSVG-OM1,RSVG-PDA (Dr. Booker)) 06/2022, we will temporarily hold aspirin until repeat guaiac obtained and repeat serial H&H's following PRBC administration, if stable will immediately resume, temporally hold metoprolol given low BP, continue statin therapy, not on MONO inhibitor/ARB. #4. Hypertension: Will temporally hold patient home metoprolol regimen given low BP in the ED although MAP still greater than 65, resume once clinically improved, potentially following 2 unit PRBC administration. #5. Hyperlipidemia: We will continue patient on statin therapy. #6. Chronic COPD: We will temporarily hold home inhalers in the interim maintain on ATC budesonide therapy, PRN albuterol, HOB, IS parameters. #7. Diabetes mellitus type II: Hold oral home regimen, continue home insulin regimen, allow clears with n.p.o. status at midnight until assure no GI bleed component although lower suspicion, accu checks w/ ISS. #8. Anxiety and depression: We will continue patient home venlafaxine regimen. #9. GERD: Will maintain on IV PPI until assure no GI bleed component although lower suspicion. #10. Chronic lower extremity swelling, lymphedema: Notes ongoing since his CABG, will place neck Mono wraps with lower extremity elevation. #11. NAYE: CPAP nightly. #12. DVT prophylaxis: SCDs. #13. CODE status: Patient LOGAN is his daughter Melissa and living will is currently in place. Discussed CODE status at length including difference between FULL code, DNR-CCA and DNR-CC status. Following discussions about the differences in these status, requested Full Code status. Advanced Care Planning Face to Face Time: 16 minutes. Charges/Coding Visit Charges Inpatient E&M: 23819 Init Hosp L3 Procedures Hospitalists Procedures: 16035 Advncd Care Plan 30 Min
[2023-09-15 15:18] LABS: Anion Gap 3 (5-15); BUN 21 mg/dL (7-18); BUN/Creat Ratio 13.5 RATIO (10-20); Calcium,Total 9.2 mg/dL (8.5-10.1); Chloride 109 mmol/L (98-107); Creatinine, Serum 1.55 mg/dL (0.70-1.30); EST Glomerular Filtration Rate 47 mL/min (>60); Est Glom Filt Rate - Afr Amer 57 mL/min (>60); Estimated Creatinine Clearance 50.03 ml/min; Glucose 143 mg/dL (74-106); Sodium Level 140 mmol/L (136-145)
[2023-09-15 17:04] LABS: Magnesium 2.3 mg/dL (1.6-2.6)
[2023-09-15 17:47] LABS: Bedside Glucose 94 mg/dL (74-106)
[2023-09-15 18:45] LABS: Ferritin 2 ng/mL (26-388); Iron 13 ug/dL (65-175); Iron Binding Capacity,Total 568 ug/dL (250-450); PERCENT IRON SATURATION 2.3 % (15.0-55.0)
[2023-09-15] MEDS: Budesonide Respules 0.5 MG/2 ML AMPUL.NEB. INHALATION (20:35)
[2023-09-15] MEDS: 0.9% Saline Lock 10 ML Syringe IV (21:14)
[2023-09-15] MEDS: 0.9% Normal Saline (1000mL) 1,000 ML 100 ML IV (21:14)
[2023-09-15] MEDS: Pantoprazole Sodium 40 MG in 0.9% Normal Saline (100mL MB+) 100 ML 330 MG IV (21:16)
[2023-09-15] MEDS: Atorvastatin Calcium 80 MG Tablet PO (21:19)
--- NOTE | 2023-09-15 23:38 | CPS ---
@2030 patient explained that he is noncompliant with CPAP at home. He does not wish to wear one of our machines while he is here.
[2023-09-16] VITALS (7 sets, daily range): BP systolic 109–156; BP diastolic 57–99; PULSE 53–63; RESP 16–20; TEMP 36.3–36.5; O2SAT 95–99; BMI 28.9
[2023-09-16 00:25] LABS: Bedside Glucose 102 mg/dL (74-106)
[2023-09-16 02:07] LABS: Hemoglobin 7.2 g/dL (13.0-16.5)
[2023-09-16 05:44] LABS: Bedside Glucose 93 mg/dL (74-106)
[2023-09-16 06:31] LABS: Absolute Lymphocyte Count 1.16 X10^3/uL (0.83-4.51); Absolute Neutrophil Count 2.3 X10^3/uL (2.0-7.7); Basophil# 0.04 X10^3/uL; Basophil% 0.9 % (0-1); Eosinophil# 0.47 X10^3/uL; Eosinophils% 10.2 % (0-5); Hematocrit 27.3 % (40-54); Hemoglobin 7.6 g/dL (13.0-16.5); Lymphocyte # 1.16 X10^3/ul (0.83-4.51); Lymphocyte % 25.3 % (19-41); Mean Corp Hgb Conc 27.8 g/dL (32-36); Mean Corpuscular Hgb 19.5 pg (27.0-32.0); Mean Platelet Vol. 9.7 fl (6.2-12.0); Monocyte% 13.1 % (0-10); NRBC Flagged by Analyzer 0 % (0-5); Neutrophil # 2.31 X10^3/uL (2.7-7.7); Neutrophil % 50.3 % (47-70); POSITIVE MORPHOLOGY YES; Platelet Count 223 K/mm3 (150-450); RBC Distribution Width SD 54.9 fl (35.1-43.9); White Blood Count 4.6 K/mm3 (4.4-11.0)
[2023-09-16 07:11] LABS: Differential Indicated SCAN CRITERIA MET
[2023-09-16 07:12] LABS: Anisocytosis 3+; Differential Comment SCANNED; Hypochromasia 1+; Macrocytosis 1+; Microcytosis 1+; Other RBC Morphology 2+; Ovalocyte 1+; Platelet Estimate ADEQUATE (ADEQ); Polychromasia 2+
[2023-09-16] MEDS: Budesonide Respules 0.5 MG/2 ML AMPUL.NEB. INHALATION ×2 (07:13→19:18)
[2023-09-16] MEDS: Venlafaxine HCl 75 MG Tablet PO (09:18)
[2023-09-16] MEDS: Pantoprazole Sodium 40 MG in 0.9% Normal Saline (100mL MB+) 100 ML 330 MG IV ×2 (09:22→21:18)
[2023-09-16 11:43] LABS: ALB/GLOB Ratio 0.9 RATIO (0.9-2.4); AST(SGOT) 24 U/L (15-37); Alanine Aminotransfer ALT/SGPT 21 U/L (16-61); Alkaline Phosphatase 48 U/L (45-117); Anion Gap 3 (5-15); BUN 15 mg/dL (7-18); BUN/Creat Ratio 13.2 RATIO (10-20); Calcium,Total 8.5 mg/dL (8.5-10.1); Chloride 112 mmol/L (98-107); Creatinine, Serum 1.14 mg/dL (0.70-1.30); EST Glomerular Filtration Rate 67 mL/min (>60); Est Glom Filt Rate - Afr Amer 81 mL/min (>60); Estimated Creatinine Clearance 68.57 ml/min; Globulin 3.3 g/dL (2.2-4.2); Glucose 104 mg/dL (74-106); Potassium 3.9 mmol/L (3.5-5.1); Protein, Total 6.3 g/dL (6.4-8.2); Sodium Level 142 mmol/L (136-145)
--- NOTE | 2023-09-16 11:45 | CASEMGMT ---
TERESITA DUARTE Face to Face with patient for initial transition planning/care coordination assessment. TERESITA DUARTE introduced self and role at [facility]. Patient lying in bed, alert and oriented. Patient willing to participate in assessment and is able to answer all questions appropriately. Care providers, pharmacy, and demographics verified. PCP: Marco Specialists: Ricarda, computer forensics technician; Pippa, head golf professional; Preferred Pharmacy: [facility] Insurance: [facility] Prescription Benefit: yes Living Will/HPOA: daughter [address] LNOK: daughter Living Arrangements: Patient lives in a 2nd floor apartment with roommates. Patient states he is independent and able to ambulate stairs. Transportation: self, friend DME/HHC: Patient has cpap that he does not wear. Patient states he cannot tolerate it and causes his sinuses to swell. TERESITA DUARTE encouraged patient to follow-up with head golf professional for recommendations, patient voiced understanding. No previous HHC or SNF Patient wishes to discharge home, denies need for home health at this time. Patient states he has no further needs or concerns at this time. CM to follow for discharge planning needs that may arise. Disposition Plan: Patient to discharge home with family support and follow-up plans in place. Taylor DELGADO, RN, CM
--- NOTE | 2023-09-16 11:54 | PN.HOSP_ITS ---
Reason for Visit Reason for Visit: Diagnoses Anemia, unspecified (09/15/23) Subjective Subjective Patient admitted yesterday afternoon for new diagnosis of anemia. Received 2 unis of pRBCs yesterday with appropriate improvement in Hgb from 5.8 to 7.6. Seen at bedside this morning. Sitting up comfortably in bed, in no acute distress. Appears well. Conversing normally. Denies any acute issues at rest. Saw him later in the morning and his only complaint was that he was hungry as he was NPO for a possible GI procedure. Does state that he had a flex sig done around age 49 for colon ca screening that showed hemorrhoids, was otherwise nor mal. Since then has done Fit testing, with last test done last year with no abnormal findings. He has history of GERD, has been on PPI for 15-20 years, no worsening of symptoms recently. No dark or bloody BMs recently. No change in stool consistency. No other acute concerns this morning. Objective Data Objective Data Vital Signs: Vital Signs Temp Pulse Resp BP Pulse Ox O2 Del Method 97.6 F L 53 L 16 156/73 H 99 Room Air 09/16/23 09:13 09/16/23 09:13 09/16/23 09:13 09/16/23 09:13 09/16/23 09:13 09/16/23 09:13 Oxygen Delivery Method Room Air Weight: 96.8 kg Body Mass Index (BMI) 28.9 Intake & Output: Intake and Output for Last 24 Hours 09/14/23 09/15/23 09/16/23 23:59 23:59 23:59 Intake Total 660.83 / 660.83 110 / 110 Output Total 600 / 600 Balance 660.83 / 660.83 -490 / -490 Lab / Micro Data 09/16/23 05:55 09/16/23 05:55 Labs: Laboratory Results - last 24 hr 09/15/23 14:52: Blood Type A POSITIVE, Antibody Screen NEGATIVE, Crossmatch See Detail 09/15/23 15:00: Sodium 140, Potassium 4.0, Chloride 109 H, Carbon Dioxide 28.0, Anion Gap 3 L, BUN 21 H, Creatinine 1.55 H, Estim Creat Clear Calc 50.03, Est GFR (MDRD) Af Amer 57 L, Est GFR (MDRD) Non-Af 47 L, BUN/Creatinine Ratio 13.5, Glucose 143 H, Calcium 9.2, Magnesium 2.3, Iron 13 L, TIBC 568 H, Iron Satur ation 2.3 L, Ferritin 2 L 09/15/23 17:21: POC Glucose 94 09/16/23 00:06: POC Glucose 102 09/16/23 01:50: Hgb 7.2 L, Hct 26.0 L 09/16/23 05:26: POC Glucose 93 09/16/23 05:55: WBC 4.6, RBC 3.90 L, Hgb 7.6 L, Hct 27.3 L, MCV 70.0 L D, MCH 19.5 L, MCHC 27.8 L D, RDW Std Deviation 54.9 H, RDW Coeff of Willis 22.0 H, Plt Count 223, MPV 9.7, Immature Gran % (Auto) 0.200, Neut % (Auto) 50.3, Lymph % (Auto) 25.3, Meade % (Auto) 13.1 H, Eos % (Auto) 10.2 H, Baso % (Auto) 0.9, Absolute Neuts (auto) 2.3, Absolute Lymphs (auto) 1.16, Nucleated RBC % 0, Differential Comment SCANNED, Platelet Estimate ADEQUATE, RBC Morphology 2+, Polychromasia 2+, Hypochromasia 1+, Anisocytosis 3+, Microcytosis 1+, Macrocytosis 1+, Ovalocytes 1+, Sodium 142, Potassium 3.9, Chloride 112 H, Carbon Dioxide 27.0, Anion Gap 3 L, BUN 15, Creatinine 1.14, Estim Creat Clear Calc 68.57, Est GFR (MDRD) Af Amer 81, Est GFR (MDRD) Non-Af 67, BUN/Creatinine Ratio 13.2, Glucose 104, Calcium 8.5, Total Bilirubin 1.00, AST 24, ALT 21, Alkaline Phosphatase 48, Total Protein 6.3 L, Albumin 3.0 L, Globulin 3.3, Albumin/Globulin Ratio 0.9 Micro: Microbiology 09/15/23 14:45 Stool Stool Occult Blood (ESTEFANIA) - Final Physical Exam Const alert, oriented x3 and no apparent distress General Appearance: cooperative and comfortable HEENT normocephalic, head/scalp atraumatic, hearing grossly normal bilaterally, nasal mucous membranes and turbinates normal and moist oral mucous membranes Eyes PERRL, EOMs intact bilaterally and conjunctivae normal Neck full ROM Chest inspection of chest normal Resp normal respiratory effort, normal air movement, no use of accessory muscles and clear to auscultation bilaterally Cardio regular rate, regular rhythm, no murmurs and peripheral pulses 2+ throughout GI normal to inspection, nondistended, normoactive bowel sounds, soft to palpation, non-tender and non-distended Back/Spine normal ROM Extremity normal to inspection, full ROM and no pedal edema Skin no rashes or lesions noted Neuro no focal motor deficits and no sensory deficits noted Psych mental status grossly normal Assessment & Plan Assessment/Plan (1) Symptomatic anemia: PLAN: Plan Patient is a 73yo male who presented to [facility] on 09/15/2023 with worsening fatigue. 1. Acute symptomatic anemia Hgb 5.8 on admit. No history of anemia, last Hgb in our records was 15 back in 06/2022. Severe microcytic anemia, MCV 65. S/p 2 units of pRBCs on admit with repeat Hgb 7.6. Iron studies show severe ZOHRA with ferritin of 2. Unclear etiology but slow GI bleed, either upper or lower would seem to be most likely cause. - GI consulted. NPO at midnight for likely EGD tomorrow. Depending on EGD findings, may also need colonoscopy. Trend daily CBC, transfuse for Hgb < 7. C ontinue IV PPI BID for now. 2. GHAZAL on CKD II, resolved - Cr 1.55 on admit, improved to 1.14 on hospital day 2 after blood transfusion. Presumed prerenal etiology due to anemia. Has had good UOP. No need to monitor further BMP. Chronic medical conditions: - H/o CAD s/p CABG x 3 in 06/2022, HTN, HLD, bilateral LE edema: Had CABG done at [facility], now follows w/ [facility], last office visit on 07/03/23. Lipid panel 07/04/23 with great lipid control. BNP 209, repeat BNP on this admit of 208. Stable. Continue home aspirin, statin, lopressor. - COPD: Stable, not on home O2. Continue home inhalers. - T2DM: Home regimen of metformin 500 mg daily. Sliding scale insulin w/ meals while inpatient. - GERD: On IV PPI BID as noted above. - Anxiety/depression: Stable. Continue home venlafaxine. - NAYE: Continue home CPAP. DVT ppx: SCDs Code status: Full code, verified Expected disposition: Home, TBD Total clinical time spent by myself addressing the patient's medical issues, reviewing all the data, and collaborating with patient's care team: 35 minutes.
[2023-09-16 12:31] LABS: Bedside Glucose 105 mg/dL (74-106)
--- NOTE | 2023-09-16 13:00 | CHAPLAIN ---
Type of Pastoral Visit _x__ Initial Visit ___ Follow-up Visit ___ On-call Visit ___ General Patient Visit ___ Spiritual Assessment ___ Family Conference ___ Bereavement ___ Rapid Response ___ Code Blue ___ Other (describe below) Pastoral Care Referral From _x__ Patient ___ Family ___ Nurse ___ Physician ___ Raw Products Director ___ Block Paver ___ Other (describe below) Sacrament/Intervention _x__ Active listening ___ Anointing ___ Sabianism ___ Bereavement ___ Communion ___ Yu exploration ___ _x__ Life review ___ Prayer ___ Reconciliation ___ Sacrament of Sick _x__ Supportive presence ___ Wedding ___ Other (describe below) Pastoral Comments patient speaks about his situation of health and home life; casual conversation; offer of support and searching of needs but pt denies any further concerns or needs
--- NOTE | 2023-09-16 17:04 | EX.PCM.CON.G ---
HPI Consult Data Date of Consult: 09/16/23 HPI Narrative Reason for Consultation: Anemia HPI Narrative: NASIMA KEYS, is a 73 y/o M w/ PMHx: Overweight, CAD s/p CABG x 3, CKD stage II prior noted per GFT trending, HTN, HLD, COPD/Asthma, Anxiety and Depression, GERD, Chronic BL LE edema, NAYE on CPAP who presents to the [facility] ED on 09/15/23 with history of 3 weeks of increasing fatigue, malaise, lightheadedness and dizziness especially with any exertion attempts with outpatient evaluation with labs obtained with notable anemia prompting PCP referral to ED for evaluation. Patient denies any recent blood in his urine or stools and no hematemesis or hemoptysis. He only takes a baby aspirin daily. He notes that his stools have looked normal. He denies any abdominal cramping or pain. He notes he has been tolerating diet without issue. Workup in the ED included T96.6, heart rate 88, BP 138/104, respiratory rate 18, 100% on room air, CBC obtained earlier in the day prior to ED presentation with noted WBC 5.3, hemoglobin 5.8, MCV 65.5, platelet 241 without marked shift, BMP in the ED with sodium 140, potassium 4.0, chloride 109, BUN/creatinine 21/1.55, GFR 47, glucose 143, type and cross initiated per ED physician with 2 units ordered for administration. [facility] Medical History (Updated 09/15/23 @ 17:[address] Elham Ansari MD) Anxiety and depression Asthma Atherosclerosis of coronary artery of [place] heart without angina pectoris Bilateral lower extremity edema COPD (chronic obstructive pulmonary disease) Diabetes Essential (primary) hypertension GERD (gastroesophageal reflux disease) Hyperlipidemia Non-smoker NAYE (obstructive sleep apnea) Home Medications metformin 500 mg tablet,extended release 24 hr 500 mg PO DAILY 06/08/22 [History Last Taken Unknown] mometasone-formoterol HFA 200 mcg-5 mcg/actuation aerosol inhaler (Dulera) 2 puff inhalation BID PRN wheezing 06/08/22 [History Last Taken Unknown] venlafaxine 75 mg tablet 75 mg PO DAILY 06/08/22 [History Last Taken Unknown] aspirin 81 mg tablet,delayed release 81 mg PO BREAKFAST #0 tabs 06/10/22 [Rx Last Taken Unknown] multivitamin 1 tab PO DAILY 07/03/22 [History Last Taken Unknown] omeprazole 20 mg capsule,delayed release 20 mg PO DAILY 07/03/22 [History Last Taken Unknown] ibuprofen 200 mg capsule 200 mg PO Q6H PRN pain 07/04/22 [History Last Taken Unknown] metoprolol tartrate 25 mg tablet 25 mg PO BID #180 tabs 08/14/22 [Rx Last Taken Unknown] rosuvastatin 40 mg tablet 40 mg PO DAILY #90 tabs 09/10/22 [Rx Last Taken Unknown] acetaminophen 500 mg tablet (Tylenol Extra Strength) 1,000 mg PO BID PRN pain 11/05/22 [History Last Taken Unknown] Allergy/AdvReac Type Severity Reaction Status Date / Time cat dander Allergy Other Verified 09/15/23 14:16 Family History Brother Myocardial infarction, Onset Age: 39 CAD (coronary artery disease) Hypertension Heart disease Father CAD (coronary artery disease) Heart disease Hypertension Myocardial infarction Mother Diabetes Surgical History History of coronary artery bypass graft x 3 (~06/12/22) History of herniorrhaphy History of tonsillectomy Hx of CABG Hx of left heart catheterization by ventricular puncture (~06/10/22) Social History household members: none housing: apartment current occupational status: employed Smoking Status: Never smoker substance use type: does not use caffeine: Yes Type: carbonated beverages Number of servings: 2 and other ROS ROS Narrative Admission Review of Systems: CONSTITUTIONAL: No weight loss, fever, chills, + weakness or fatigue. HEENT: + Lightheadedness, dizziness. Eyes: No visual loss, blurred vision, double vision or yellow sclerae. Ears, Nose, Throat: No hearing loss, sneezing, congestion, runny nose or sore throat. SKIN: No rash or itching, lesions, wounds. CARDIOVASCULAR: + Lightheadedness, dizziness, chronic lower extremity edema. No chest pain, chest pressure or chest discomfort, palpitations, orthopnea, syncopal events. RESPIRATORY: + Dyspnea worse with exertion. No marked cough or sputum, wheezing, hemoptysis. GASTROINTESTINAL: No anorexia, nausea, vomiting or diarrhea, abdominal pain, melena, BRBPR. GENITOURINARY: No dysuria, frequency, urgency or retention. NEUROLOGICAL: + Lightheadedness, dizziness. No headache, syncope, paralysis, ataxia, numbness or tingling in the extremities, focal weakness, change in bowel or bladder control, seizure. MUSCULOSKELETAL: + muscle, back pain, joint pain or stiffness. HEMATOLOGIC: + anemia, no evidence of any bleeding, does have some easy bruising he notes. LYMPHATICS: No enlarged nodes. No history of splenectomy. PSYCHIATRIC: + History of anxiety and depression. ENDOCRINOLOGIC: No reports of sweating, cold or heat intolerance. No polyuria or polydipsia. ALLERGIES: + History of asthma, allergic rhinitis. Physical Exam Const alert, oriented x3 and no apparent distress General Appearance: cooperative and comfortable HEENT normocephalic, head/scalp atraumatic, hearing grossly normal bilaterally, nasal mucous membranes and turbinates normal and moist oral mucous membranes Eyes PERRL, EOMs intact bilaterally and conjunctivae normal Neck full ROM Chest inspection of chest normal Resp normal respiratory effort, normal air movement, no use of accessory muscles and clear to auscultation bilaterally Cardio regular rate, regular rhythm, no murmurs and peripheral pulses 2+ throughout GI normal to inspection, nondistended, normoactive bowel sounds, soft to palpation, non-tender and non-distended Back/Spine normal ROM Extremity normal to inspection, full ROM and no pedal edema Skin no rashes or lesions noted Neuro no focal motor deficits and no sensory deficits noted Psych mental status grossly normal Lab / Micro Data 09/17/23 06:45 09/17/23 06:45 Labs: Laboratory Results - last 24 hr 09/16/23 17:48: POC Glucose 120 H 09/16/23 23:00: POC Glucose 173 H 09/17/23 04:58: POC Glucose 127 H 09/17/23 06:45: WBC 5.9, RBC 4.08 L, Hgb 7.9 L, Hct 28.4 L, MCV 69.6 L, MCH 19.4 L, MCHC 27.8 L, RDW Std Deviation 55.7 H, RDW Coeff of Willis 22.6 H, Plt Count 217, MPV 9.4, Differential Comment , PT 15.3 H, INR 1.2, Sodium 140, Potassium 4.2, Chloride 110 H, Carbon Dioxide 28.0, Anion Gap 2 L, BUN 15, Creatinine 1.09, Estim Creat Clear Calc 70.84, Est GFR (MDRD) Af Amer 85, Est GFR (MDRD) Non-Af 70, BUN/Creatinine Ratio 13.8, Glucose 113 H, Hemoglobin A1c 6.3 H, Calcium 8.7 09/17/23 10:52: POC Glucose 94 Assessment & Plan Assessment/Plan (1) Symptomatic anemia: PLAN: Plan The patient is a 73 y/o M w/ PMHx: Overweight, CAD s/p CABG x 3, CKD stage II prior noted per GFT trending, HTN, HLD, COPD/Asthma, Anxiety and Depression, GERD, Chronic BL LE edema, NAYE on CPAP who presents to the [facility] ED on 09/15/23 with history of 3 weeks of increasing fatigue, malaise, lightheadedness and dizziness especially with any exertion attempts with outpatient evaluation with labs obtained with notable anemia prompting PCP referral to ED for evaluation. Likely acute on chronic symptomatic anemia, unclear etiology: Admission hemoglobin 5.8, no reported history of hematuria/bright red blood per rectum/dark black stools/hematemesis but onset abruptly over the last 3 weeks, guaiac in the ED initially negative. We will get an upper endoscopy and if negative he will need a colonoscopy. Patient said he had a sigmoidoscopy multiple years ago but has not had a direct visualization of his colon in at least 20 years. Charges/Coding Visit Charges Inpatient E&M: 47990 Init Hosp L3
[2023-09-16 18:29] LABS: Bedside Glucose 120 mg/dL (74-106)
--- NOTE | 2023-09-16 20:32 | CPS ---
Patient refused PAP therapy for the night, doesn't wear at home. On RA 97%
[2023-09-16] MEDS: Atorvastatin Calcium 80 MG Tablet PO (21:14)
[2023-09-16 23:18] LABS: Bedside Glucose 173 mg/dL (74-106)
[2023-09-17] VITALS (10 sets, daily range): BP systolic 111–148; BP diastolic 68–94; PULSE 58–75; RESP 12–20; TEMP 36.2–36.8; O2SAT 94–100; BMI 28.9; BMI 28.1
--- NOTE | 2023-09-17 05:00 | EKG12_ITS ---
Test Reason : AM EKG Blood Pressure : / mmHG Vent. Rate : 063 BPM Atrial Rate : 063 BPM P-R Int : 168 ms QRS Dur : 102 ms QT Int : 424 ms P-R-T Axes : 047 014 -12 degrees QTc Int : 433 ms Normal sinus rhythm T wave abnormality, consider inferior ischemia Abnormal ECG When compared with ECG of 10-JUN-2022 05:33, Borderline criteria for Inferior infarct are no longer Present T wave inversion no longer evident in Lateral leads Confirmed by JIM SLAUGHTER, ZACH ([id number]), website/blog editor VICKIE RIDDLE ([id number]) on 09/17/2023 9:20:47 AM Referred By: GISSEL Confirmed By:ZACH FERNANDEZ MD
[2023-09-17 05:17] LABS: Bedside Glucose 127 mg/dL (74-106)
[2023-09-17 07:41] LABS: Hematocrit 28.4 % (40-54); Hemoglobin 7.9 g/dL (13.0-16.5); Mean Corp Hgb Conc 27.8 g/dL (32-36); Mean Corpuscular Hgb 19.4 pg (27.0-32.0); Mean Corpuscular Volume 69.6 fL (80-94); Mean Platelet Vol. 9.4 fl (6.2-12.0); POSITIVE MORPHOLOGY YES; Platelet Count 217 K/mm3 (150-450); RBC Distribution Width CV 22.6 % (11.6-14.6); RBC Distribution Width SD 55.7 fl (35.1-43.9); Red Blood Count 4.08 M/mm3 (4.6-6.2); White Blood Count 5.9 K/mm3 (4.4-11.0)
[2023-09-17 07:43] LABS: Scan Indicated on CBC? Y/N YES- FLAGS NOTED
[2023-09-17 08:09] LABS: Anion Gap 2 (5-15); BUN 15 mg/dL (7-18); BUN/Creat Ratio 13.8 RATIO (10-20); Calcium,Total 8.7 mg/dL (8.5-10.1); Chloride 110 mmol/L (98-107); Creatinine, Serum 1.09 mg/dL (0.70-1.30); EST Glomerular Filtration Rate 70 mL/min (>60); Est Glom Filt Rate - Afr Amer 85 mL/min (>60); Estimated Creatinine Clearance 70.84 ml/min; Glucose 113 mg/dL (74-106); Potassium 4.2 mmol/L (3.5-5.1); Sodium Level 140 mmol/L (136-145)
[2023-09-17 09:31] LABS: Hemoglobin A1c 6.3 % (3.8-5.6)
[2023-09-17 09:37] LABS: International Normalized Ratio 1.2; Prothrombin Time (Protime)PT. 15.3 SECONDS (11.7-14.9)
[2023-09-17] MEDS: Pantoprazole Sodium 40 MG in 0.9% Normal Saline (100mL MB+) 100 ML 330 MG IV (09:53)
[2023-09-17 11:16] LABS: Bedside Glucose 94 mg/dL (74-106)
[2023-09-17] MEDS: Lactated Ringers 1,000 ML 15 ML IV (12:23)
--- NOTE | 2023-09-17 12:45 | EGD_PTH ---
PATIENT: NASIMA KEYS LOC: [facility] U#:[id number] AGE/SX: 73/M ROOM: [facility] RE09/15/[address]: Dr. Prashanth Talamantes DO : 1950 BED: 1 DIS: 09/19/2023 SPEC #: [id number] RECD: 09/18/23 09:42 STATUS: SANDRA REQ #: [id number] KINA: 09/17/23 12:[address]: Roberto Carlos Winston DEPT: SURGICAL PATHOLOGY RECD BY: Germania Morales ENTERED: 09/18/23 11:10 SP TYPE: EGD BIOPSY OTHR DR: DO Dr. Elham De La Rosa MD Dr. Victor Velasquez, MD Tissues: Esophagus, NOS Procedures: Special Stain Group II Surgery Specimen Level IV Alcian Blue/PAS (control) Comments: @ Ordering doctor for SUIV edited from to @ tarik CEDILLO at 09/18/23 1417 @ Submitting doctor edited from to @ tarik CEDILLO at 09/18/23 1417 HEADER OPERATION: EGD with biopsy PRE-OP DIAGNOSIS: GI bleed TISSUE SUBMITTED: Distal esophagus bleed MICROSCOPIC DIAGNOSIS Distal esophagus, biopsy: Gastroesophageal junctional mucosa with chronic inflammation. No evidence of goblet cell metaplasia. See comment. / 09/19/2023 COMMENT Alcian blue/PAS stain with matched control is used in the evaluation of the specimen. MICROSCOPIC DESCRIPTION Slides are reviewed. GROSS DESCRIPTION Received in fixative is one container labeled with the patient's name and designated Distal esophagus biopsy. The specimen consists of multiple irregular fragments of light dasilva soft tissue that in aggregate measure 0.8 x 0.3 x 0.1 cm. The specimen is totally submitted in one cassette. / 09/18/2023 TC:3 CPT:02704,38243
[2023-09-17] MEDS: Budesonide Respules 0.5 MG/2 ML AMPUL.NEB. INHALATION ×2 (14:37→19:55)
--- NOTE | 2023-09-17 14:44 | PCM.PN.HOSP ---
Reason for Visit Reason for Visit: Diagnoses Anemia, unspecified (09/15/23) Subjective Subjective No acute events overnight. Patient seen at bedside this morning. Sitting up comfortably in bed, in no acute distress. Appears similar to previous days. Plan was for EGD to assess for upper GI bleed later this morning. Patient denies having any bowel movement since admission. He did discuss having an infestation of bedbugs at his home over last several months and inquired about his acute anemia possibly be secondary to recurrent bedbug bites. No other acute concerns. Objective Data Objective Data Vital Signs: Vital Signs Temp Pulse Resp BP Pulse Ox O2 Del Method 98.0 F 61 18 132/70 H 99 Room Air 09/17/23 09:36 09/17/23 14:37 09/17/23 14:37 09/17/23 09:36 09/17/23 09:36 09/17/23 09:36 Oxygen Delivery Method Room Air Weight: 96.8 kg Body Mass Index (BMI) 28.9 Intake & Output: Intake and Output for Last 24 Hours 09/15/23 09/16/23 09/17/23 23:59 23:59 23:59 Intake Total 660.83 / 660.83 1040 / 1040 110 / 110 Output Total 1700 / 1700 Balance 660.83 / 660.83 -660 / -660 110 / 110 Lab / Micro Data 09/17/23 06:45 09/17/23 06:45 Labs: Laboratory Results - last 24 hr 09/16/23 17:48: POC Glucose 120 H 09/16/23 23:00: POC Glucose 173 H 09/17/23 04:58: POC Glucose 127 H 09/17/23 06:45: WBC 5.9, RBC 4.08 L, Hgb 7.9 L, Hct 28.4 L, MCV 69.6 L, MCH 19.4 L, MCHC 27.8 L, RDW Std Deviation 55.7 H, RDW Coeff of Willis 22.6 H, Plt Count 217, MPV 9.4, Differential Comment , PT 15.3 H, INR 1.2, Sodium 140, Potassium 4.2, Chloride 110 H, Carbon Dioxide 28.0, Anion Gap 2 L, BUN 15, Creatinine 1.09, Estim Creat Clear Calc 70.84, Est GFR (MDRD) Af Amer 85, Est GFR (MDRD) Non-Af 70, BUN/Creatinine Ratio 13.8, Glucose 113 H, Hemoglobin A1c 6.3 H, Calcium 8.7 09/17/23 10:52: POC Glucose 94 Micro: Microbiology 09/15/23 14:45 Stool Stool Occult Blood (ESTEFANIA) - Final Physical Exam Const alert, oriented x3 and no apparent distress General Appearance: cooperative and comfortable HEENT normocephalic, head/scalp atraumatic, hearing grossly normal bilaterally, nasal mucous membranes and turbinates normal and moist oral mucous membranes Eyes PERRL, EOMs intact bilaterally and conjunctivae normal Neck full ROM Chest inspection of chest normal Resp normal respiratory effort, normal air movement, no use of accessory muscles and clear to auscultation bilaterally Cardio regular rate, regular rhythm, no murmurs and peripheral pulses 2+ throughout GI normal to inspection, nondistended, normoactive bowel sounds, soft to palpation, non-tender and non-distended Back/Spine normal ROM Extremity normal to inspection, full ROM and no pedal edema Skin no rashes or lesions noted Neuro no focal motor deficits and no sensory deficits noted Psych mental status grossly normal Assessment & Plan Assessment/Plan (1) Symptomatic anemia: PLAN: Plan Patient is a 73yo male who presented to [facility] on 09/15/2023 with worsening fatigue. 1. Acute symptomatic anemia Hgb 5.8 on admit. No history of anemia, last Hgb in our records was 15 back in 06/2022. Severe microcytic anemia, MCV 65. S/p 2 units of pRBCs on admit with repeat Hgb 7.6. Iron studies show severe ZOHRA with ferritin of 2. Unclear etiology but slow GI bleed, either upper or lower would seem to be most likely cause. ? GI following. S/p EGD on 09/16, results pending. Depending on EGD findings, may also need colonoscopy while inpatient. Hemoglobin remained stable, continue to trend daily CBC. Continue IV PPI twice daily for now. 2. GHAZAL on CKD II, resolved - Cr 1.55 on admit, improved to 1.14 on hospital day 2 after blood transfusion. Presumed prerenal etiology due to anemia. Has had good UOP. No need to monitor further BMP. Chronic medical conditions: - H/o CAD s/p CABG x 3 in 06/2022, HTN, HLD, bilateral LE edema: Had CABG done at [facility], now follows w/ [facility], last office visit on 07/03/23. Lipid panel 07/04/23 with great lipid control. BNP 209, repeat BNP on this admit of 208. Stable. Continue home aspirin, statin, lopressor. - COPD: Stable, not on home O2. Continue home inhalers. - T2DM: Home regimen of metformin 500 mg daily. Sliding scale insulin w/ meals while inpatient. - GERD: On IV PPI BID as noted above. - Anxiety/depression: Stable. Continue home venlafaxine. - NAYE: Continue home CPAP. DVT ppx: SCDs Code status: Full code, verified Expected disposition: Home, TBD Total clinical time spent by myself addressing the patient's medical issues, reviewing all the data, and collaborating with patient's care team: 35 minutes. Charges/Coding Visit Charges Inpatient E&M: 35249 Subs Hosp L2
[2023-09-17] MEDS: Ipratropium/Albuterol Sulfate 3 ML AMPUL.NEB INHALATION (15:40)
--- NOTE | 2023-09-17 17:12 | OP.EGD_ITS ---
Patient Name: Magdiel Marcus Procedure Date: 09/17/2023 4:45 PM Date of : 1950 Age: 73 Procedure: Upper GI endoscopy Indications: Iron deficiency anemia Providers: Roberto Carlos Winston DO Medicines: Monitored Anesthesia Care Patient Profile: This is a 73 year old male. Refer to note in patient chart for documentation of history and physical. Patient has symptoms of acute nausea. Complications: No immediate complications. Procedure: Pre-Anesthesia Assessment: - Prior to the procedure, a History and Physical was performed, and patient medications and allergies were reviewed. The patient is competent. The risks and benefits of the procedure and the sedation options and risks were discussed with the patient. All questions were answered and informed consent was obtained. Patient identification and proposed procedure were verified by the physician in the pre-procedure area. Mental Status Examination: alert and oriented. Airway Examination: normal oropharyngeal airway and neck mobility. Respiratory Examination: clear to auscultation. CV Examination: normal. Prophylactic Antibiotics: The patient does not require prophylactic antibiotics. Prior Anticoagulants: The patient has taken no anticoagulant or antiplatelet agents except for NSAID medication. ASA Grade Assessment: II - A patient with mild systemic disease. After reviewing the risks and benefits, the patient was deemed in satisfactory condition to undergo the procedure. The anesthesia plan was to use monitored anesthesia care (MAC). Immediately prior to administration of medications, the patient was re-assessed for adequacy to receive sedatives. The heart rate, respiratory rate, oxygen saturations, blood pressure, adequacy of pulmonary ventilation, and response to care were monitored throughout the procedure. The physical status of the patient was re-assessed after the procedure. After obtaining informed consent, the endoscope was passed under direct vision. Throughout the procedure, the patient's blood pressure, pulse, and oxygen saturations were monitored continuously. The gastroscope was introduced through the mouth, and advanced to the second part of duodenum. The upper GI endoscopy was accomplished without difficulty. Scope In: 4:54:40 PM Scope Out: 4:57:48 PM Total Procedure Duration Time 0 hours 3 minutes 8 seconds Findings: The Z-line was irregular and was found 38 cm from the incisors. Biopsies were taken with a cold forceps for histology. Verification of patient identification for the specimen was done. Estimated blood loss was minimal. No gross lesions were noted in the entire examined stomach. No gross lesions were noted in the second portion of the duodenum. Impression: - Z-line irregular, 38 cm from the incisors. Biopsied. - No gross lesions in the entire stomach. - No gross lesions in the second portion of the duodenum. Recommendation: - Return patient to [facility] for ongoing care. - Clear liquid diet. - Continue present medications. Procedure Code(s): --- Professional --- 40059, Esophagogastroduodenoscopy, flexible, transoral; with biopsy, single or multiple CPT copyright 2021 [employer]. All rights reserved. The codes documented in this report are preliminary and upon supervisor cell operation review may be revised to meet current compliance requirements. Roberto Carlos Winston DO 09/17/2023 5:12:22 PM This report has been signed electronically. Number of Addenda: 0 Note Initiated On: 09/17/2023 4:45 PM
--- NOTE | 2023-09-17 17:13 | OP.CCLET_ITS ---
09/17/2023 Daniel Lara [address] [place] [address] Re : Upper GI endoscopy procedure for Magdiel Marcus Dear Dr. Lara This procedure was performed on Sunday, September 17, 2023. My impressions and recommendations are as follows: Impressions : - Z-line irregular, 38 cm from the incisors. Biopsied. - No gross lesions in the entire stomach. - No gross lesions in the second portion of the duodenum. Recommendations : - Return patient to [facility] for ongoing care. - Clear liquid diet. - Continue present medications. My findings are described in the full procedure note, which is enclosed. If I can be of further assistance, please feel free to contact me at . Sincerely, Roberto Carlos Winston, 09/17/2023 5:12:22 PM This report has been signed electronically.
[2023-09-17] MEDS: Bisacodyl 5 MG Tablet 20 MG PO (18:12)
[2023-09-17] MEDS: Electrolyte Solution/Peg's 4000 ML PO (18:15)
[2023-09-17 18:37] LABS: Bedside Glucose 89 mg/dL (74-106)
[2023-09-17] MEDS: Atorvastatin Calcium 80 MG Tablet PO (23:55)
[2023-09-18] VITALS (13 sets, daily range): BP systolic 97–154; BP diastolic 60–82; PULSE 59–106; RESP 14–18; TEMP 36.3–37; O2SAT 93–99; BMI 28.8
[2023-09-18] MEDS: Pantoprazole Sodium 40 MG in 0.9% Normal Saline (100mL MB+) 100 ML 330 MG IV ×2 (00:09→09:35)
[2023-09-18] MEDS: 0.9% Saline Lock 10 ML Syringe IV (00:21)
[2023-09-18 02:28] LABS: Bedside Glucose 102 mg/dL (74-106)
[2023-09-18] MEDS: Budesonide Respules 0.5 MG/2 ML AMPUL.NEB. INHALATION (07:00)
[2023-09-18 08:28] LABS: Hematocrit 30.5 % (40-54); Hemoglobin 8.4 g/dL (13.0-16.5); Mean Corp Hgb Conc 27.5 g/dL (32-36); Mean Corpuscular Hgb 19.4 pg (27.0-32.0); Mean Corpuscular Volume 70.3 fL (80-94); Mean Platelet Vol. 9.9 fl (6.2-12.0); POSITIVE MORPHOLOGY YES; Platelet Count 232 K/mm3 (150-450); RBC Distribution Width CV 23.7 % (11.6-14.6); RBC Distribution Width SD 58.7 fl (35.1-43.9); Red Blood Count 4.34 M/mm3 (4.6-6.2); White Blood Count 4.8 K/mm3 (4.4-11.0)
[2023-09-18 08:37] LABS: Scan Indicated on CBC? Y/N YES- FLAGS NOTED
[2023-09-18 09:06] LABS: Differential Comment SCANNED
--- NOTE | 2023-09-18 12:28 | PCM.PN.HOSP ---
Reason for Visit Reason for Visit: Diagnoses Anemia, unspecified (09/15/23) Subjective Subjective No acute events overnight. Patient seen at bedside this morning. Sitting up comfortably bedside chair, conversing normally, in no acute distress. Appears similar to previous days. Patient tolerated EGD well yesterday. Tolerated the colonoscopy prep overnight this morning well and was looking forward to getting the colonoscopy done today. Denies any blood in bowel movements. Has good energy today, denies any significant fatigue. Denies any chest pain or shortness of breath with exertion. No other acute concerns. Objective Data Objective Data Vital Signs: Vital Signs Temp Pulse Resp BP Pulse Ox O2 Del Method 97.8 F 73 18 151/82 H 99 Room Air 09/18/23 09:33 09/18/23 11:00 09/18/23 09:33 09/18/23 09:33 09/18/23 09:33 09/18/23 09:33 Oxygen Delivery Method Room Air Weight: 96.6 kg Body Mass Index (BMI) 28.8 Intake & Output: Intake and Output for Last 24 Hours 09/16/23 09/17/23 09/18/23 23:59 23:59 23:59 Intake Total 1040 / 1040 690.5 / 690.5 220 / 220 Output Total 1700 / 1700 350 / 350 Balance -660 / -660 340.5 / 340.5 220 / 220 Lab / Micro Data 09/18/23 07:37 09/17/23 06:45 Labs: Laboratory Results - last 24 hr 09/17/23 18:10: POC Glucose 89 09/18/23 00:19: POC Glucose 102 09/18/23 07:37: WBC 4.8, RBC 4.34 L, Hgb 8.4 L, Hct 30.5 L, MCV 70.3 L, MCH 19.4 L, MCHC 27.5 L, RDW Std Deviation 58.7 H, RDW Coeff of Willis 23.7 H, Plt Count 232, MPV 9.9, Differential Comment SCANNED Micro: Microbiology 09/15/23 14:45 Stool Stool Occult Blood (ESTEFANIA) - Final Physical Exam Const alert, oriented x3 and no apparent distress General Appearance: cooperative and comfortable HEENT normocephalic, head/scalp atraumatic, hearing grossly normal bilaterally, nasal mucous membranes and turbinates normal and moist oral mucous membranes Eyes PERRL, EOMs intact bilaterally and conjunctivae normal Neck full ROM Chest inspection of chest normal Resp normal respiratory effort, normal air movement, no use of accessory muscles and clear to auscultation bilaterally Cardio regular rate, regular rhythm, no murmurs and peripheral pulses 2+ throughout GI normal to inspection, nondistended, normoactive bowel sounds, soft to palpation, non-tender and non-distended Back/Spine normal ROM Extremity normal to inspection, full ROM and no pedal edema Skin no rashes or lesions noted Neuro no focal motor deficits and no sensory deficits noted Psych mental status grossly normal Assessment & Plan Assessment/Plan (1) Symptomatic anemia: PLAN: Plan Patient is a 73yo male who presented to [facility] on 09/15/2023 with worsening fatigue. 1. Acute symptomatic anemia Hgb 5.8 on admit. No history of anemia, last Hgb in our records was 15 back in 06/2022. Severe microcytic anemia, MCV 65. S/p 2 units of pRBCs on admit with repeat Hgb 7.6. Iron studies show severe ZOHRA with ferritin of 2. Unclear etiology but slow GI bleed, either upper or lower would seem to be most likely cause. ? GI following. S/p EGD on 09/16, no lesions in esophagus, stomach or duodenum. Completed colonoscopy prep overnight on 09/16 with plan for colonoscopy on 09/17. Hemoglobin has remained stable since blood transfusion, continue to trend daily CBC. Will de-escalate to p.o. PPI daily on 09/17. 2. GHAZAL on CKD II, resolved - Cr 1.55 on admit, improved to 1.14 on hospital day 2 after blood transfusion. Presumed prerenal etiology due to anemia. Has had good UOP. No need to monitor further BMP. Chronic medical conditions: - H/o CAD s/p CABG x 3 in 06/2022, HTN, HLD, bilateral LE edema: Had CABG done at [facility], now follows w/ [facility], last office visit on 07/03/23. Lipid panel 07/04/23 with great lipid control. BNP 209, repeat BNP on this admit of 208. Stable. Continue home aspirin, statin, lopressor. - COPD: Stable, not on home O2. Continue home inhalers. - T2DM: Home regimen of metformin 500 mg daily. Sliding scale insulin w/ meals while inpatient. - GERD: On IV PPI BID as noted above. - Anxiety/depression: Stable. Continue home venlafaxine. - NAYE: Continue home CPAP. DVT ppx: Lovenox Code status: Full code, verified Expected disposition: Home, 1 to 2 days Total clinical time spent by myself addressing the patient's medical issues, reviewing all the data, and collaborating with patient's care team: 35 minutes. Charges/Coding Visit Charges Inpatient E&M: 79720 Subs Hosp L2
[2023-09-18] MEDS: Lactated Ringers 1,000 ML 15 ML IV (12:41)
[2023-09-18 13:51] LABS: Bedside Glucose 104 mg/dL (74-106)
[2023-09-18 13:51] LABS: Bedside Glucose 99 mg/dL (74-106)
[2023-09-18 15:11] LABS: Bedside Glucose 91 mg/dL (74-106)
[2023-09-18 17:32] LABS: Bedside Glucose 102 mg/dL (74-106)
--- NOTE | 2023-09-18 18:27 | OP.CCLET_ITS ---
09/18/2023 Daniel Lara [address] [place] [address] Re : Colonoscopy procedure for Magdiel Angeline Dear Dr. Lara This procedure was performed on August. My impressions and recommendations are as follows: Impressions : - Diverticulosis in the recto-sigmoid colon and in the sigmoid colon. - The examination was otherwise normal. - The examined portion of the ileum was normal. - No specimens collected. Recommendations : - Return patient to [facility] for ongoing care. - Resume regular diet. - Continue present medications. -Outpatient capsule endoscopy - No repeat colonoscopy due to age. My findings are described in the full procedure note, which is enclosed. If I can be of further assistance, please feel free to contact me at . Sincerely, Roberto Carlos Winston, 09/18/2023 6:26:51 PM This report has been signed electronically.
--- NOTE | 2023-09-18 18:27 | OP.COLON_ITS ---
Patient Name: Magdiel Marcus Procedure Date: 09/18/2023 1:33 PM Date of : 1950 Age: 73 Procedure: Colonoscopy Indications: Iron deficiency anemia Providers: Roberto Carlos Winston DO Medicines: Monitored Anesthesia Care Patient Profile: This is a 73 year old male. Refer to note in patient chart for documentation of history and physical. Last Colonoscopy: none. The patient's first colonoscopy is today. Complications: No immediate complications. Procedure: Pre-Anesthesia Assessment: - Prior to the procedure, a History and Physical was performed, and patient medications and allergies were reviewed. The patient is competent. The risks and benefits of the procedure and the sedation options and risks were discussed with the patient. All questions were answered and informed consent was obtained. Patient identification and proposed procedure were verified by the physician in the pre-procedure area. Mental Status Examination: alert and oriented. Airway Examination: normal oropharyngeal airway and neck mobility. Respiratory Examination: clear to auscultation. CV Examination: normal. Prophylactic Antibiotics: The patient does not require prophylactic antibiotics. Prior Anticoagulants: The patient has taken no anticoagulant or antiplatelet agents except for NSAID medication. ASA Grade Assessment: II - A patient with mild systemic disease. After reviewing the risks and benefits, the patient was deemed in satisfactory condition to undergo the procedure. The anesthesia plan was to use monitored anesthesia care (MAC). Immediately prior to administration of medications, the patient was re-assessed for adequacy to receive sedatives. The heart rate, respiratory rate, oxygen saturations, blood pressure, adequacy of pulmonary ventilation, and response to care were monitored throughout the procedure. The physical status of the patient was re-assessed after the procedure. After I obtained informed consent, the scope was passed under direct vision. Throughout the procedure, the patient's blood pressure, pulse, and oxygen saturations were monitored continuously. The pediatric colonoscope was introduced through the anus and advanced to the terminal ileum. The colonoscopy was performed without difficulty. The patient tolerated the procedure well. The quality of the bowel preparation was adequate. The terminal ileum, ileocecal valve, appendiceal orifice, and rectum were photographed. Scope In: 1:40:06 PM Scope Withdrawal Time 0 hours 5 minutes 58 seconds Scope Out: 1:52:28 PM Total Procedure Duration Time 0 hours 12 minutes 22 seconds Findings: The perianal and digital rectal examinations were normal. Multiple small-mouthed diverticula were found in the recto-sigmoid colon and sigmoid colon. No additional abnormalities were found on retroflexion. The exam was otherwise without abnormality. The terminal ileum appeared normal. Impression: - Diverticulosis in the recto-sigmoid colon and in the sigmoid colon. - The examination was otherwise normal. - The examined portion of the ileum was normal. - No specimens collected. Recommendation: - Return patient to [facility] for ongoing care. - Resume regular diet. - Continue present medications. -Outpatient capsule endoscopy - No repeat colonoscopy due to age. Procedure Code(s): --- Professional --- 88150, Colonoscopy, flexible; diagnostic, including collection of specimen(s) by brushing or washing, when performed (separate procedure) CPT copyright 2021 [employer]. All rights reserved. The codes documented in this report are preliminary and upon death surveys coder review may be revised to meet current compliance requirements. Roberto Carlos Winston DO 09/18/2023 6:26:51 PM This report has been signed electronically. Number of Addenda: 0 Note Initiated On: 09/18/2023 1:33 PM
[2023-09-18 19:06] LABS: Anion Gap 1 (5-15); BUN 10 mg/dL (7-18); BUN/Creat Ratio 9.2 RATIO (10-20); Calcium,Total 8.9 mg/dL (8.5-10.1); Chloride 112 mmol/L (98-107); Creatinine, Serum 1.09 mg/dL (0.70-1.30); EST Glomerular Filtration Rate 70 mL/min (>60); Est Glom Filt Rate - Afr Amer 85 mL/min (>60); Estimated Creatinine Clearance 71.65 ml/min; Glucose 102 mg/dL (74-106); Magnesium 2.2 mg/dL (1.6-2.6); Sodium Level 142 mmol/L (136-145)
[2023-09-18] MEDS: Atorvastatin Calcium 80 MG Tablet PO (21:26)
[2023-09-18 22:42] LABS: Bedside Glucose 133 mg/dL (74-106)
[2023-09-18] MEDS: Fluticasone 0.05% 1 SPRAY NASAL.SRY NASAL (23:08)
[2023-09-19 03:30] VITALS: BP 139/78; PULSE 96; RESP 18; TEMP 36.8; O2SAT 96
[2023-09-19 04:53] VITALS: BMI 28.9
[2023-09-19 06:38] LABS: Hematocrit 29.5 % (40-54); Hemoglobin 8.1 g/dL (13.0-16.5); Mean Corp Hgb Conc 27.5 g/dL (32-36); Mean Corpuscular Hgb 19.1 pg (27.0-32.0); Mean Corpuscular Volume 69.7 fL (80-94); Mean Platelet Vol. 9.3 fl (6.2-12.0); POSITIVE MORPHOLOGY YES; Platelet Count 208 K/mm3 (150-450); RBC Distribution Width CV 24.2 % (11.6-14.6); Red Blood Count 4.23 M/mm3 (4.6-6.2); White Blood Count 5.2 K/mm3 (4.4-11.0)
[2023-09-19 06:45] LABS: Scan Indicated on CBC? Y/N YES- FLAGS NOTED
[2023-09-19 07:02] LABS: Anion Gap 7 (5-15); BUN 10 mg/dL (7-18); BUN/Creat Ratio 8.9 RATIO (10-20); Calcium,Total 8.8 mg/dL (8.5-10.1); Chloride 106 mmol/L (98-107); Creatinine, Serum 1.12 mg/dL (0.70-1.30); EST Glomerular Filtration Rate 68 mL/min (>60); Est Glom Filt Rate - Afr Amer 82 mL/min (>60); Glucose 126 mg/dL (74-106); Potassium 3.8 mmol/L (3.5-5.1); Sodium Level 141 mmol/L (136-145)
[2023-09-19 07:12] LABS: Bedside Glucose 133 mg/dL (74-106)
[2023-09-19 07:50] VITALS: PULSE 76; RESP 16; O2SAT 91
[2023-09-19] MEDS: Budesonide Respules 0.5 MG/2 ML AMPUL.NEB. INHALATION (07:50)
[2023-09-19] MEDS: Sodium Ferric Gluconat/Sucrose 250 MG in 0.9% Normal Saline (250mL Bag) 250 ML 135 MG IV (08:32)
[2023-09-19] MEDS: Venlafaxine HCl 75 MG Tablet PO ×2 (08:35)
[2023-09-19] MEDS: Enoxaparin 40 MG/0.4 ML Syringe SC (08:35)
[2023-09-19] MEDS: Pantoprazole Sodium 40 MG Tablet PO (08:35)
[2023-09-19] MEDS: Fluticasone 0.05% 1 SPRAY NASAL.SRY NASAL (08:39)
[2023-09-19 09:11] VITALS: BP 124/61; PULSE 66; RESP 18; TEMP 36.8; O2SAT 95
--- NOTE | 2023-09-19 11:31 | DCINST_ITS ---
Discharge Instructions Diet Discharge Diet: No restrictions Activity Discharge Activity: No Restrictions Weight Bearing Status: Full weight bearing Follow Up Care Test Results: Test results from this visit will be discussed in further detail at your follow- up appointment, if applicable. Discharge Plan Admission Admit Date/Time: 09/15/23 15:14 Primary Reason for Your Visit: Worsening fatigue Attending Provider: Prashanth Talamantes Primary Care Provider: Daniel Lara Consulting Providers: Elham Ansari Discharge Orders/Prescriptions Prescriptions: Continued multivitamin Tablet 1 tab PO DAILY omeprazole 20 mg capsule,delayed release(DR/EC) 20 mg PO DAILY venlafaxine 75 mg Tablet 75 mg PO DAILY metformin 500 mg Tablet Extended Release 24 Hr 500 mg PO DAILY Hold Instructions: Resume on 06/19/22. Dulera 200-5 mcg/actuation Hfa Aerosol Inhaler 2 puff INHALATION BID PRN (Reason: wheezing) aspirin 81 mg Tablet,Delayed Release (Dr/Ec) 81 mg PO BREAKFAST Qty: 0 0RF metoprolol tartrate 25 mg tablet 25 mg PO BID Qty: 180 3RF rosuvastatin 40 mg tablet 40 mg PO DAILY Qty: 90 3RF Discontinued ibuprofen 200 mg capsule 200 mg PO Q6H PRN (Reason: pain) acetaminophen [Tylenol Extra Strength] 500 mg tablet 1,000 mg PO BID PRN (Reason: pain) Referrals / Follow Up: Daniel Lara MD [Primary Care Provider] - Disposition Disposition (needs filled in before D/C Order can be placed): Home, Self Care
--- NOTE | 2023-09-19 11:34 | DS.PCM_ITS ---
Providers Date of Admission: 09/15/23 Date of Discharge: 09/19/23 Primary Care Physician: Dr. Daniel Lara MD Consultations 09/16/23 07:57 Consult: Gastroenterology Routine Consulting Provider: [facility] Reason for Consult: new severe ZOHAR, r/o GI bleed EMERGENT Consult: No MD Notified: Yes Date Notified: 09/16/23 Time Notified: 07:57 Method of Notification: Text Reason For Visit: ACUTE ANEMIA Diagnosis Discharge Diagnosis (1) Symptomatic anemia: Status: Acute Code(s): D64.9 - Anemia, unspecified Medications at Discharge Home Medications metformin 500 mg tablet,extended release 24 hr 500 mg PO DAILY 06/08/22 mometasone-formoterol HFA 200 mcg-5 mcg/actuation aerosol inhaler (Dulera) 2 puff inhalation BID PRN wheezing 06/08/22 venlafaxine 75 mg tablet 75 mg PO DAILY 06/08/22 aspirin 81 mg tablet,delayed release 81 mg PO BREAKFAST #0 tabs 06/10/22 multivitamin 1 tab PO DAILY 07/03/22 omeprazole 20 mg capsule,delayed release 20 mg PO DAILY 07/03/22 metoprolol tartrate 25 mg tablet 25 mg PO BID #180 tabs 08/14/22 rosuvastatin 40 mg tablet 40 mg PO DAILY #90 tabs 09/10/22 Hospital Course Operations None Procedures Blood transfusion, Colonoscopy, EGD and EKG Summary of Care Provided Minutes Spent on Discharge: 35 Hospital Course: Patient is a 73-year-old male who presented to [facility] ED on 09/15/2023 with worsening fatigue. Hospital course as noted below. Discharged home with no therapy needs in stable condition on 09/18. 1. Acute symptomatic anemia Hgb 5.8 on admit. No history of anemia, last Hgb in our records was 15 back in 06/2022. Severe microcytic anemia, MCV 65. S/p 2 units of pRBCs on admit with repeat Hgb 7.6. Iron studies show severe ZOHRA with ferritin of 2. Unclear etiology but slow GI bleed, either upper or lower would seem to be most likely cause. ? GI followed. S/p EGD on 09/16, no lesions in esophagus, stomach or duodenum. S/p colonoscopy on 09/17, and diverticulosis noted in rectosigmoid colon and sigmoid colon, exam was otherwise benign. Recommendation per GI was for outpat ient capsule endoscopy for further workup. Patient's hemoglobin remained stable around 7.5-8.5 after transfusion on admission. Also gave patient a dose of IV iron sucrose 200 mg on day of discharge. Recommend repeat CBC in 1 to 2 weeks to ensure continued stability of hemoglobin. Okay for p.o. PPI daily on discharge. Outpatient follow-up with GI as needed. 2. GHAZAL on CKD II, resolved - Cr 1.55 on admit, improved to 1.14 on hospital day 2 after blood transfusion. Presumed prerenal etiology due to anemia. Had very good urine output during hospitalization. Chronic medical conditions: - H/o CAD s/p CABG x 3 in 06/2022, HTN, HLD, bilateral LE edema: Had CABG done at [facility], now follows w/ [facility], last office visit on 07/03/23. Lipid panel 07/04/23 with great lipid control. BNP 209, repeat BNP on this admit of 208. Stable. Continue home aspirin, statin, lopressor. - COPD: Stable, not on home O2. Continue home inhalers. - T2DM: Home regimen of metformin 500 mg daily. Sliding scale insulin w/ meals while inpatient. - GERD: On IV PPI BID as noted above. - Anxiety/depression: Stable. Continue home venlafaxine. - NAYE: Continue home CPAP. Total clinical time spent by myself addressing the patient's medical issues, reviewing all the data, and collaborating with patient's care team: 35 minutes. Physical Exam Const alert, oriented x3 and no apparent distress General Appearance: cooperative and comfortable HEENT normocephalic, head/scalp atraumatic, hearing grossly normal bilaterally, nasal mucous membranes and turbinates normal and moist oral mucous membranes Eyes PERRL, EOMs intact bilaterally and conjunctivae normal Neck full ROM Chest inspection of chest normal Resp normal respiratory effort, normal air movement, no use of accessory muscles and clear to auscultation bilaterally Cardio regular rate, regular rhythm, no murmurs and peripheral pulses 2+ throughout GI normal to inspection, nondistended, normoactive bowel sounds, soft to palpation, non-tender and non-distended Back/Spine normal ROM Extremity normal to inspection, full ROM and no pedal edema Skin no rashes or lesions noted Neuro no focal motor deficits and no sensory deficits noted Psych mental status grossly normal Weight / BMI Weight Weight: 96.8 kg Body Mass Index (BMI) 28.9 ABG / Lab / Microbiology Data 09/19/23 05:58 09/19/23 05:58 Laboratory: Laboratory Results - last 24 hr 09/18/23 07:11: POC Glucose 99 09/18/23 07:37: Sodium 142, Potassium 4.0, Chloride 112 H, Carbon Dioxide 29.0, Anion Gap 1 L, BUN 10, Creatinine 1.09, Estim Creat Clear Calc 71.65, Est GFR (MDRD) Af Amer 85, Est GFR (MDRD) Non-Af 70, BUN/Creatinine Ratio 9.2 L, Glucose 102, Calcium 8.9, Magnesium 2.2 09/18/23 08:09: POC Glucose 104 09/18/23 14:41: POC Glucose 91 09/18/23 17:13: POC Glucose 102 09/18/23 21:28: POC Glucose 133 H 09/19/23 05:58: WBC 5.2, RBC 4.23 L, Hgb 8.1 L, Hct 29.5 L, MCV 69.7 L, MCH 19.1 L, MCHC 27.5 L, RDW Std Deviation 59.0 H, RDW Coeff of Willis 24.2 H, Plt Count 208, MPV 9.3, Differential Comment , Sodium 141, Potassium 3.8, Chloride 106, Carbon Dioxide 28.0, Anion Gap 7, BUN 10, Creatinine 1.12, Estim Creat Clear Calc 69.80, Est GFR (MDRD) Af Amer 82, Est GFR (MDRD) Non-Af 68, BUN/Creatinine Ratio 8.9 L, Glucose 126 H, Calcium 8.8 09/19/23 06:27: POC Glucose 133 H Microbiology: Microbiology 09/15/23 14:45 Stool Stool Occult Blood (ESTEFANIA) - Final D/C Instructions Discharge Diet: No restrictions Weight Bearing Status: Full weight bearing Meaningful Use Info Meaningful Use Meaningful Use Diagnoses (Choose all that apply): None applicable Ischemic Stroke Statin Dosing Therapy Reference: STATIN DOSE THERAPY REFERENCE: * Patients > 75 years receive moderate or high dose statin therapy. * Patients 75 years or YOUNGER should receive HIGH intensity statin dose unless contraindicated. You will be required to document reason for non-treatment if statin daily dose does not meet guidelines. HIGH DOSE STATIN THERAPY DAILY Atorvastatin > than or = to 40 mg Rosuvastatin > than or = to 20 mg Amlodipine + Atorvastatin > than or = to 2.5/40 mg Ezetimibe + Simvastatin 10/80 mg Simvastatin 80mg Discharge Plan Admission Admit Date/Time: 09/15/23 15:14 Primary Reason for Your Visit: Worsening fatigue Attending Provider: Prashanth Talamantes Primary Care Provider: Daniel Lara Consulting Providers: Elham Ansari Discharge Orders/Prescriptions Prescriptions: Continued multivitamin Tablet 1 tab PO DAILY omeprazole 20 mg capsule,delayed release(DR/EC) 20 mg PO DAILY venlafaxine 75 mg Tablet 75 mg PO DAILY metformin 500 mg Tablet Extended Release 24 Hr 500 mg PO DAILY Hold Instructions: Resume on 06/19/22. Dulera 200-5 mcg/actuation Hfa Aerosol Inhaler 2 puff INHALATION BID PRN (Reason: wheezing) aspirin 81 mg Tablet,Delayed Release (Dr/Ec) 81 mg PO BREAKFAST Qty: 0 0RF metoprolol tartrate 25 mg tablet 25 mg PO BID Qty: 180 3RF rosuvastatin 40 mg tablet 40 mg PO DAILY Qty: 90 3RF Discontinued ibuprofen 200 mg capsule 200 mg PO Q6H PRN (Reason: pain) acetaminophen [Tylenol Extra Strength] 500 mg tablet 1,000 mg PO BID PRN (Reason: pain) Referrals / Follow Up: Daniel Lara MD [Primary Care Provider] - 09/24/23 3:40 pm Disposition Disposition (needs filled in before D/C Order can be placed): Home, Self Care Charges/Coding Visit Charges Inpatient E&M: 76614 Disch Hosp >30min
--- NOTE | 2023-09-19 11:47 | PHA.DC.MR.R ---
Pharmacy [facility] Med Reconciliation Pharmacy Service has performed discharge medication reconciliation for this patient. The patient's discharge medication list was reviewed for discrepancies and discrepancies were resolved. Medications at Discharge Home Medications metformin 500 mg tablet,extended release 24 hr 500 mg PO DAILY 06/08/22 mometasone-formoterol HFA 200 mcg-5 mcg/actuation aerosol inhaler (Dulera) 2 puff inhalation BID PRN wheezing 06/08/22 venlafaxine 75 mg tablet 75 mg PO DAILY 06/08/22 aspirin 81 mg tablet,delayed release 81 mg PO BREAKFAST #0 tabs 06/10/22 multivitamin 1 tab PO DAILY 07/03/22 omeprazole 20 mg capsule,delayed release 20 mg PO DAILY 07/03/22 metoprolol tartrate 25 mg tablet 25 mg PO BID #180 tabs 08/14/22 rosuvastatin 40 mg tablet 40 mg PO DAILY #90 tabs 09/10/22
--- NOTE | 2023-09-19 12:00 | CASEMGMT ---
Patient has order for discharge. RN CM in to discuss needs at discharge. Patient denies needs or help at discharge. Patient had no further questions or concenrs.
== END 2023-09-19 13:49 | disposition home or self-care (01) | DRG 378 ==
LOC: ED 15:28 → PCU 15:40
PROVIDERS: Internal Medicine Gastroenterology; Admitting Provider Family Medicine; Emergency Provider Emergency Medicine; PCP Internal Medicine; Visit Provider Hospitalist
PROC: 0DJ08ZZ Inspection of Upper Intestinal Tract, Via Natural or Artificial Opening Endoscopic (ICD-10-PCS; CPT 43235; principal; 2023-09-17 12:40)
PROC: 0DJD8ZZ Inspection of Lower Intestinal Tract, Via Natural or Artificial Opening Endoscopic (ICD-10-PCS; CPT 45378; principal; 2023-09-18 12:40)
DX: K57.31 Diverticulosis of large intestine without perforation or abscess with bleeding (principal); D62 Acute posthemorrhagic anemia; N17.9 Acute kidney failure, unspecified; E11.22 Type 2 diabetes mellitus with diabetic chronic kidney disease; J44.9 Chronic obstructive pulmonary disease, unspecified; F32.A Depression, unspecified; I12.9 Hypertensive chronic kidney disease with stage 1 through stage 4 chronic kidney disease, or unspecified chronic kidney disease; E78.5 Hyperlipidemia, unspecified; G47.33 Obstructive sleep apnea (adult) (pediatric); I25.10 Atherosclerotic heart disease of native coronary artery without angina pectoris; K21.9 Gastro-esophageal reflux disease without esophagitis; N18.2 Chronic kidney disease, stage 2 (mild); F41.9 Anxiety disorder, unspecified; I89.0 Lymphedema, not elsewhere classified; Z95.1 Presence of aortocoronary bypass graft; Z79.51 Long term (current) use of inhaled steroids; Z79.82 Long term (current) use of aspirin; Z79.84 Long term (current) use of oral hypoglycemic drugs; Z79.899 Other long term (current) drug therapy; Z20.7 Contact with and (suspected) exposure to pediculosis, acariasis and other infestations
CPT/HCPCS: 36415; 80048; 80053; 82274; 82728; 82962; 83036; 83540; 83550; 83735; 83880; 85014; 85018; 85025; 85027; 85610; 86850; 86900; 86901; 86920; 86922; 88305; 88313; 93005; 94640; 94668; 97116; 97161; 99284; J7030; J7040; J7050; J7120; P9016; A4216; J2405; J2916

== ENCOUNTER → 2023-09-15 | Outpatient (CLI) | payer MEDICARE, SELFPAY ==
[2022-11-04 11:00] VITALS: BMI 27.8
[2023-09-15 11:17] LABS: Absolute Lymphocyte Count 0.93 X10^3/uL (0.83-4.51); Absolute Neutrophil Count 3.5 X10^3/uL (2.0-7.7); Basophil# 0.05 X10^3/uL; Basophil% 0.9 % (0-1); Eosinophil# 0.26 X10^3/uL; Eosinophils% 4.9 % (0-5); Hemoglobin 5.8 g/dL (13.0-16.5); Lymphocyte # 0.93 X10^3/ul (0.83-4.51); Lymphocyte % 17.6 % (19-41); Mean Corp Hgb Conc 26.4 g/dL (32-36); Mean Corpuscular Hgb 17.3 pg (27.0-32.0); Mean Corpuscular Volume 65.5 fL (80-94); Mean Platelet Vol. 9.1 fl (6.2-12.0); Monocyte# 0.51 X10^3/uL; Monocyte% 9.7 % (0-10); NRBC Flagged by Analyzer 0 % (0-5); Neutrophil % 66.5 % (47-70); POSITIVE COUNT YES; Platelet Count 241 K/mm3 (150-450); RBC Distribution Width CV 19.2 % (11.6-14.6); RBC Distribution Width SD 45.1 fl (35.1-43.9); Red Blood Count 3.36 M/mm3 (4.6-6.2); White Blood Count 5.3 K/mm3 (4.4-11.0)
[2023-09-15 11:45] LABS: Anion Gap 5 (5-15); BNP,B-Type NATRIURETIC PEPTIDE 208.9 pg/mL (0-100); BUN 19 mg/dL (7-18); BUN/Creat Ratio 13.8 RATIO (10-20); Calcium,Total 8.5 mg/dL (8.5-10.1); Chloride 108 mmol/L (98-107); Creatinine, Serum 1.38 mg/dL (0.70-1.30); EST Glomerular Filtration Rate 54 mL/min (>60); Est Glom Filt Rate - Afr Amer 65 mL/min (>60); Glucose 164 mg/dL (74-106); Potassium 3.7 mmol/L (3.5-5.1); Sodium Level 139 mmol/L (136-145)
[2023-09-15 13:56] LABS: Pathologist Review Reviewed
== END | disposition home or self-care (01) ==
PROVIDERS: Nurse Practitioner Family; PCP Internal Medicine; Referring Provider Physician Assistant Medical; Visit Provider Physician Assistant Medical
DX: R06.09 Other forms of dyspnea (principal); I21.4 Non-ST elevation (NSTEMI) myocardial infarction; R60.0 Localized edema; I25.10 Atherosclerotic heart disease of native coronary artery without angina pectoris; I10 Essential (primary) hypertension; E78.5 Hyperlipidemia, unspecified; Z95.1 Presence of aortocoronary bypass graft
CPT/HCPCS: 36415; 80048; 83880; 85025

== ENCOUNTER → 2025-01-13 | Outpatient (CLI) | payer MEDICARE, SELFPAY ==
[2022-11-04 11:00] VITALS: BMI 27.8
[2025-01-13 10:56] LABS: AST(SGOT) 40 U/L (<=37); Alanine Aminotransfer ALT/SGPT 35 U/L (<=46); Albumin, Serum 4.0 g/dL (3.4-4.8); Alkaline Phosphatase 83 U/L (40-129); Bilirubin, Direct 0.23 mg/dL (0.00-0.30); Cholesterol 143 mg/dL (<=200); Globulin 3.2 g/dL (2.2-4.2); Low Density Lipoprotein Calc. 70 mg/dL; Triglycerides 92 mg/dL; Very Low Density Lipoprotein 18 mg/dL (5-40); cholesterol:hdl ratio screen 2.60
== END | disposition home or self-care (01) ==
LOC: LAB 10:04
PROVIDERS: PCP Internal Medicine; Referring Provider Nurse Practitioner Gerontology; Visit Provider Nurse Practitioner Gerontology
DX: E78.5 Hyperlipidemia, unspecified (principal)
CPT/HCPCS: 36415; 80061; 80076